=== PATIENT | male | born 1995 | race African-American/Black ===

== ENCOUNTER 2018-11-29 12:39 | Inpatient (IN) | payer BC, SELFPAY ==
[~2018-11-29] VITALS: Ht 193 cm; Wt 110.3 kg
[2018-11-29] MEDS ORDERED: MECLIZINE HCL 12.5 MG TABLET. PO ONE (13:00)
[2018-11-29] MEDS ORDERED: IV NORMAL SALINE 1000ML BAG 1,000 ML IV ONE ×2 (13:00→17:15)
[2018-11-29] MEDS ORDERED: ONDANSETRON PF 4 MG/2 ML VIAL. IV ONE (13:00)
--- NOTE | 2018-11-29 13:29 | RAD ---
EXAM: Chest, single view. HISTORY: Dizziness. COMPARISON: None. FINDINGS: A frontal view of the chest is obtained. There is no infiltrate, pleural effusion or pneumothorax. There is a prominent cardiac silhouette, likely due to portable technique. IMPRESSION: No acute pulmonary finding. Electronically signed by: Ayesha Flores MD (11/29/2018 1:26 PM) [facility]
[2018-11-29 13:43] LABS: BASO # 0.1 x10^3/uL (0.0-0.2); BASO % 1 % (0-3); EOS # 0.1 x10^3/uL (0.0-0.7); EOS % 1 % (0-3); HEMATOCRIT 45.7 % (39.0-53.0); HEMOGLOBIN 14.8 g/dL (13.0-17.5); LYMPH # 2.1 x10^3/uL (1.0-4.8); LYMPH % 24 % (24-48); MEAN CORPUSCULAR HEMOGLOBIN 29 pg (25-35); MEAN CORPUSCULAR HGB CONC 32 g/dL (31-37); MEAN CORPUSCULAR VOLUME 89 fL (79-100); MONO # 0.9 x10^3/uL (0.0-1.1); MONO % 10 % (0-9); NEUT # 5.7 x10^3uL (1.8-7.7); NEUT % 64 % (31-73); PLATELET COUNT 363 x10^3/uL (140-400); RED BLOOD COUNT 5.16 x10^6/uL (4.30-5.70); RED CELL DISTRIBUTION WIDTH 12.7 % (11.5-14.5); WHITE BLOOD COUNT 8.8 x10^3/uL (4.0-11.0)
[2018-11-29 13:51] LABS: CALCIUM 9.3 mg/dL (8.5-10.1); CREATININE 1.2 mg/dL (0.7-1.3); GFR 89.3; POTASSIUM 3.7 mmol/L (3.5-5.1)
[2018-11-29 13:58] LABS: ALBUMIN 3.5 g/dL (3.4-5.0); ALBUMIN/GLOBULIN RATIO 0.9 (1.0-1.7); MAGNESIUM 1.7 mg/dL (1.8-2.4); TOTAL BILIRUBIN 0.7 mg/dL (0.2-1.0); TOTAL PROTEIN 7.4 g/dL (6.4-8.2)
--- NOTE | 2018-11-29 14:07 | PHYS DOC ---
Past Medical History Past Medical History: No Pertinent History Past Surgical History: No Surgical History Additional Information: 1/2 PACK/DAY Alcohol Use: Occasionally Drug Use: None Adult General Chief Complaint Chief Complaint: DIZZY/LIGHT HEADED HPI HPI Patient is a 23 year old male who presents with dizziness since this morning. Patient states he he sleeps on the floor, he states he got up this morning, became dizzy, fell down, denies hitting his head on the ground. He states he got up again and has been dizzy since then. He is able to walk with no difficulties. Denies any significant previous medical history. Denies any chest pain or shortness of breath. Denies any headache. He states his dizziness has actually improved tremendously on arrival to the ED Review of Systems Review of Systems Constitutional: Denies fever or chills [] Eyes: Denies change in visual acuity, redness, or eye pain [] HENT: Denies nasal congestion or sore throat [] Respiratory: Denies cough or shortness of breath [] Cardiovascular: No additional information not addressed in HPI [] GI: Denies abdominal pain, nausea, vomiting, bloody stools or diarrhea [] : Denies dysuria or hematuria [] Musculoskeletal: Denies back pain or joint pain [] Integument: Denies rash or skin lesions [] Neurologic: Reports dizziness, denies. Denies headache, focal weakness or sensory changes [] All other systems were reviewed and found to be within normal limits, except as documented in this note. Current Medications Current Medications Current Medications Medications (Trade) Dose Ordered Sig/Carl Start Time Stop Time Status Last Admin Dose Admin Acetaminophen (Tylenol) 650 mg PRN Q4HRS PRN 11/29/18 16:15 11/30/18 16:14 Aspirin (Ana Aspirin) 325 mg 1X ONCE 11/29/18 14:15 11/29/18 14:16 DC 11/29/18 14:21 325 MG Info (CONTRAST GIVEN -- Rx MONITORING) 1 each PRN DAILY PRN 11/29/18 14:30 12/01/18 14:29 Iohexol (Omnipaque 350 Mg/ml) 100 ml 1X ONCE 11/29/18 14:30 11/29/18 14:31 DC Labetalol HCl (Normodyne Iv Push) 20 mg PRN Q2HR PRN 11/29/18 15:30 Magnesium Sulfate/ Dextrose 100 ml @ 100 mls/hr 1X ONCE 11/29/18 15:15 11/29/18 16:14 DC 11/29/18 15:31 100 MLS/HR Meclizine HCl (Antivert) 25 mg 1X ONCE 11/29/18 13:00 11/29/18 13:01 DC 11/29/18 13:39 25 MG Nitroglycerin (Nitrostat) 0.4 mg PRN Q5MIN PRN 11/29/18 16:15 11/30/18 16:14 Ondansetron HCl (Zofran) 4 mg PRN Q8HRS PRN 11/29/18 16:15 11/30/18 16:14 Sodium Chloride 1,000 ml @ 1,000 mls/hr 1X ONCE 11/29/18 13:00 11/29/18 13:59 DC 11/29/18 13:36 1,000 MLS/HR Allergies Allergies Allergies Coded Allergies Type Severity Reaction Last Updated Verified No Known Drug Allergies 11/29/18 No Physical Exam Physical Exam Constitutional: Well developed, well nourished, no acute distress, non-toxic appearance. [] HENT: Normocephalic, atraumatic, bilateral external ears normal, oropharynx moist, no oral exudates, nose normal. [] Eyes: PERRLA, EOMI, conjunctiva normal, no discharge. [] Neck: Normal range of motion, no tenderness, supple, no stridor. [] Cardiovascular:Heart rate regular rhythm, no murmur [] Lungs & Thorax: Bilateral breath sounds clear to auscultation [] Abdomen: Bowel sounds normal, soft, no tenderness, no masses, no pulsatile masses. [] Skin: Warm, dry, no erythema, no rash. [] Back: No tenderness, no CVA tenderness. [] Extremities: No tenderness, no cyanosis, no clubbing, ROM intact, no edema. [] Neurologic: Alert and oriented X 3, normal motor function, normal sensory f unction, no focal deficits noted. Cranial nerves II through XII intact. Psychologic: Affect normal, judgement normal, mood normal. [] Current Patient Data Vital Signs Vital Signs Date Time Temp Pulse Resp B/P (MAP) Pulse Ox O2 Delivery O2 Flow Rate FiO2 11/29/18 13:40 109 20 100 11/29/18 12:40 98.5 128/77 (94) Room Air 98.5 Lab Values Laboratory Tests Test 11/29/18 13:30 11/29/18 15:20 White Blood Count 8.8 x10^3/uL (4.0-11.0) Red Blood Count 5.16 x10^6/uL (4.30-5.70) Hemoglobin 14.8 g/dL (13.0-17.5) Hematocrit 45.7 % (39.0-53.0) Mean Corpuscular Volume 89 fL (79-100) Mean Corpuscular Hemoglobin 29 pg (25-35) Mean Corpuscular Hemoglobin Concent 32 g/dL (31-37) Red Cell Distribution Width 12.7 % (11.5-14.5) Platelet Count 363 x10^3/uL (140-400) Neutrophils (%) (Auto) 64 % (31-73) Lymphocytes (%) (Auto) 24 % (24-48) Monocytes (%) (Auto) 10 % (0-9) H Eosinophils (%) (Auto) 1 % (0-3) Basophils (%) (Auto) 1 % (0-3) Neutrophils # (Auto) 5.7 x10^3uL (1.8-7.7) Lymphocytes # (Auto) 2.1 x10^3/uL (1.0-4.8) Monocytes # (Auto) 0.9 x10^3/uL (0.0-1.1) Eosinophils # (Auto) 0.1 x10^3/uL (0.0-0.7) Basophils # (Auto) 0.1 x10^3/uL (0.0-0.2) Sodium Level 140 mmol/L (136-145) Potassium Level 3.7 mmol/L (3.5-5.1) Chloride Level 104 mmol/L (98-107) Carbon Dioxide Level 23 mmol/L (21-32) Anion Gap 13 (6-14) Blood Urea Nitrogen 11 mg/dL (8-26) Creatinine 1.2 mg/dL (0.7-1.3) Estimated GFR (Cockcroft-Gault) 89.3 BUN/Creatinine Ratio 9 (6-20) Glucose Level 116 mg/dL (70-99) H Calcium Level 9.3 mg/dL (8.5-10.1) Magnesium Level 1.7 mg/dL (1.8-2.4) L Total Bilirubin 0.7 mg/dL (0.2-1.0) Aspartate Amino Transferase (AST) 24 U/L (15-37) Alanine Aminotransferase (ALT) 36 U/L (16-63) Alkaline Phosphatase 92 U/L (46-116) Troponin I Quantitative 0.122 ng/mL (0.000-0.055) IV-Eve-M-Type Natriuretic Peptide 1839 pg/mL (0-124) H Total Protein 7.4 g/dL (6.4-8.2) Albumin 3.5 g/dL (3.4-5.0) Albumin/Globulin Ratio 0.9 (1.0-1.7) L Triglycerides Level 168 mg/dL (0-150) H Cholesterol Level 233 mg/dL (0-200) H LDL Cholesterol, Calculated 150 mg/dL (0-100) H VLDL Cholesterol, Calculated 34 mg/dL (0-40) Non-HDL Cholesterol Calculated 184 mg/dL (0-129) H HDL Cholesterol 49 mg/dL (40-60) Cholesterol/HDL Ratio 4.8 Thyroid Stimulating Hormone (TSH) 1.155 uIU/mL (0.358-3.74) Urine Collection Type Void Urine Color Yellow Urine Clarity Clear Urine pH 7.0 Urine Specific [place] 1.020 Urine Protein Negative mg/dL (NEG-TRACE) Urine Glucose (UA) Negative mg/dL (NEG) Urine Ketones (Stick) Negative mg/dL (NEG) Urine Blood Negative (NEG) Urine Nitrite Negative (NEG) Urine Bilirubin Negative (NEG) Urine Urobilinogen Dipstick 1.0 mg/dL (0.2 mg/dL) Urine Leukocyte Esterase Negative (NEG) Urine RBC 0 /HPF (0-2) Urine WBC 0 /HPF (0-4) Urine Bacteria 0 /HPF (0-FEW) Urine Opiates Screen Neg (NEG) Urine Methadone Screen Neg (NEG) Urine Barbiturates Neg (NEG) Urine Phencyclidine Screen Neg (NEG) Urine Amphetamine/Methamphetamine Neg (NEG) Urine Benzodiazepines Screen Neg (NEG) Urine Cocaine Screen Pos (NEG) Urine Cannabinoids Screen Pos (NEG) Urine Ethyl Alcohol Neg (NEG) Laboratory Tests 11/29/18 13:30 Laboratory Tests 11/29/18 13:30 EKG EKG Intepreted by Dr. Betancourt sinus tachycardia HR 102 no STEMI[] Radiology/Procedures Radiology/Procedures []PROCEDURE: CT ANGIOGRAPHY CHEST Examination: CT angiography chest History: tachycardia COMPARISON: None available TECHNIQUE: Axial CT angiographic images of chest were performed IV contrast. Coronal and sagittal 3-D MIP reformats are performed Exposure: One or more of the following individualized dose reduction techniques were utilized for this examination: 1. Automated exposure control 2. Adjustment of the mA and/or kV according to patient size 3. Use of iterative reconstruction technique FINDINGS: The central airways are patent. Mild cardiomegaly. There is no evidence of filling defect identified in the main pulmonary artery and right and left main pulmonary artery and the visualized lobar, segmental branches of the pulmonary arteries. There are patchy groundglass airspace opacities identified in the right middle lobe of the lung and bibasilar lungs, right greater than left, likely infiltrates or edema. No evidence of pleural effusion or pneumothorax. The visualized liver, spleen, adrenals grossly appears unremarkable. No evidence of lytic bony destructive lesion. IMPRESSION: 1. No evidence of pulmonary embolism. 2. Multiple groundglass patchy airspace opacities identified in the bibasilar lungs and in the right middle lobe of the lung likely atelectasis or infiltrates or edema. Close interval follow-up examination is recommended to document resolution. 3. Mild cardiomegaly. Electronically signed by: Ward Goldberg MD (11/29/2018 3:05 PM) [id number] DICTATED and SIGNED BY: WARD GOLDBERG MD DATE: 11/29/18 1505 PROCEDURE: PORTABLE CHEST 1V EXAM: Chest, single view. HISTORY: Dizziness. COMPARISON: None. FINDINGS: A frontal view of the chest is obtained. There is no infiltrate, pleural effusion or pneumothorax. There is a prominent cardiac silhouette, likely due to portable technique. IMPRESSION: No acute pulmonary finding. Electronically signed by: Ayesha Garcia MD (11/29/2018 1:26 PM) [id number] DICTATED and SIGNED BY: AYESHA GARCIA MD DATE: 11/29/18 1326 Course & Med Decision Making Course & Med Decision Making Pertinent Labs and Imaging studies reviewed. (See chart for details) This is a 23-year-old male patient presenting to the ED today with complaints of dizziness since this morning. No chest pain. No headache. Symptoms are actually better on arrival to the ED. EKG was noted for tachycardia. CBC with no acute findings, CMP with no acute findings. Troponin 0.122. Patient denies any chest pain or shortness of breath. Drug screen noted for cocaine use, marijuana use 1451 Consulted motion picture operator, spoke to hal who came and evaluated patient [address] Chamberlain who accepted patient for admission. CTA chest is negative for PE. Dragon Disclaimer Dragon Disclaimer This electronic medical record was generated, in whole or in part, using a voice recognition dictation system. Departure Departure Impression: Primary Impression: Dizziness Additional Impression: Non-ST elevation MS (NSTEMI) Disposition: ADMITTED INPATIENT Condition: STABLE Referrals: NO PCP (PCP) Problem Qualifiers SALOMÓN ALVARADO APRN November 29, 2018 14:07
[2018-11-29] MEDS ORDERED: ASPIRIN 325 MG TABLET PO ONE (14:15)
[2018-11-29] MEDS ORDERED: CONTRAST GIVEN. MC PRN (14:30)
[2018-11-29] MEDS ORDERED: IOHEXOL 350 MG/ML 100 ML VIAL. IV ONE (14:30)
--- NOTE | 2018-11-29 14:45 | EKG ---
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
--- NOTE | 2018-11-29 15:08 | RAD ---
Examination: CT angiography chest History: tachycardia COMPARISON: None available TECHNIQUE: Axial CT angiographic images of chest were performed IV contrast. Coronal and sagittal 3-D MIP reformats are performed Exposure: One or more of the following individualized dose reduction techniques were utilized for this examination: 1. Automated exposure control 2. Adjustment of the mA and/or kV according to patient size 3. Use of iterative reconstruction technique FINDINGS: The central airways are patent. Mild cardiomegaly. There is no evidence of filling defect identified in the main pulmonary artery and right and left main pulmonary artery and the visualized lobar, segmental branches of the pulmonary arteries. There are patchy groundglass airspace opacities identified in the right middle lobe of the lung and bibasilar lungs, right greater than left, likely infiltrates or edema. No evidence of pleural effusion or pneumothorax. The visualized liver, spleen, adrenals grossly appears unremarkable. No evidence of lytic bony destructive lesion. IMPRESSION: 1. No evidence of pulmonary embolism. 2. Multiple groundglass patchy airspace opacities identified in the bibasilar lungs and in the right middle lobe of the lung likely atelectasis or infiltrates or edema. Close interval follow-up examination is recommended to document resolution. 3. Mild cardiomegaly. Electronically signed by: Ward Goldberg MD (11/29/2018 3:05 PM) [id number]
[2018-11-29] MEDS ORDERED: MAGNESIUM SULFATE 1GM 100 ML IV ONE (15:15)
--- NOTE | 2018-11-29 15:16 | PDOC2 ---
CARDIAC CONSULT DATE OF CONSULT Date of Consult DATE: 11/29/18 TIME: 15:02 REASON FOR CONSULT Reason for Consult: Elevated troponin REFERRING PHYSICIAN Referring Physician: Mickey SOURCE Source: Chart review, Patient HISTORY OF PRESENT ILLNESS HISTORY OF PRESENT ILLNESS This is a pleasant 23 yo male admitted for complains of dizziness. Pt has not seen any doctor at least in the last 3 yrs. Verbalized that his mother was bord with congenital heart disease but unsure what type. 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 Reports that in the last week he thought he has some allergies and has been taking mucinex because he fells like phlegm wont come up and he has been having nonproductive cough with some wheezing. Denies any astham or any childhood heart disease and no leg pain or swelling and no past hx of VTE and he does not take any medications. Reports that this morning he got up to use the bathroom and felt dizzy with VILLAGOMEZ and also a little SOA and weak. Denies any chest pain or sensation of palpitations. No hx of arrhythmias. He does drking about 1 can of Monster a day but other caffeinated beverage. He smokes tobacco. No visual or auditory disturbances, no facial droop or dysarthria. PAST MEDICAL HISTORY Past Medical History No pertinent history PAST SURGICAL HISTORY Past Surgical History: No pertinent history FAMILY HISTORY Family History: Heart Disease (mother) SOCIAL HISTORY Smoke: <1 pack per day ALCOHOL: occassional Drugs: Marijuana Lives: with Family CURRENT MEDICATIONS CURRENT MEDICATIONS Current Medications Medications (Trade) Dose Ordered Sig/Carl Route PRN Reason Start Time Stop Time Status Last Admin Dose Admin Meclizine HCl (Antivert) 25 mg 1X ONCE PO 11/29/18 13:00 11/29/18 13:01 DC 11/29/18 13:39 Sodium Chloride 1,000 ml @ 1,000 mls/hr 1X ONCE IV 11/29/18 13:00 11/29/18 13:59 DC 11/29/18 13:36 Ondansetron HCl (Zofran) 4 mg 1X ONCE IV 11/29/18 13:00 11/29/18 13:01 DC 11/29/18 13:38 Aspirin (Ana Aspirin) 325 mg 1X ONCE PO 11/29/18 14:15 11/29/18 14:16 DC 11/29/18 14:21 ALLERGIES ALLERGIES: Coded Allergies: No Known Drug Allergies (Unverified , 11/29/18) ROS Review of System 14 point ROS evaluated with pertinent positives noted per HPI PHYSICAL EXAM General: Alert, Oriented X3, Cooperative, No acute distress HEENT: Atraumatic, Mucous membr. moist/pink Heart: Regular rate (SR/ST), Other (S3 diatolic murmur 3/6 loudest at erbs) Abdomen: Soft, No tenderness Extremities: No cyanosis, No edema Skin: No breakdown, No significant lesion Neuro: Normal speech, Sensation intact Psych/Mental Status: Mental status NL, Mood NL MUSCULOSKELETAL: Full range of motion without pain VITALS VITALS Vital Signs Date Time Temp Pulse Resp B/P (MAP) Pulse Ox O2 Delivery O2 Flow Rate FiO2 11/29/18 13:40 109 20 100 11/29/18 12:40 98.5 128/77 (94) Room Air 98.5 LABS Lab: Laboratory Tests Test 11/29/18 13:30 White Blood Count 8.8 x10^3/uL (4.0-11.0) Red Blood Count 5.16 x10^6/uL (4.30-5.70) Hemoglobin 14.8 g/dL (13.0-17.5) Hematocrit 45.7 % (39.0-53.0) Mean Corpuscular Volume 89 fL (79-100) Mean Corpuscular Hemoglobin 29 pg (25-35) Mean Corpuscular Hemoglobin Concent 32 g/dL (31-37) Red Cell Distribution Width 12.7 % (11.5-14.5) Platelet Count 363 x10^3/uL (140-400) Neutrophils (%) (Auto) 64 % (31-73) Lymphocytes (%) (Auto) 24 % (24-48) Monocytes (%) (Auto) 10 % (0-9) Eosinophils (%) (Auto) 1 % (0-3) Basophils (%) (Auto) 1 % (0-3) Neutrophils # (Auto) 5.7 x10^3uL (1.8-7.7) Lymphocytes # (Auto) 2.1 x10^3/uL (1.0-4.8) Monocytes # (Auto) 0.9 x10^3/uL (0.0-1.1) Eosinophils # (Auto) 0.1 x10^3/uL (0.0-0.7) Basophils # (Auto) 0.1 x10^3/uL (0.0-0.2) Sodium Level 140 mmol/L (136-145) Potassium Level 3.7 mmol/L (3.5-5.1) Chloride Level 104 mmol/L (98-107) Carbon Dioxide Level 23 mmol/L (21-32) Anion Gap 13 (6-14) Blood Urea Nitrogen 11 mg/dL (8-26) Creatinine 1.2 mg/dL (0.7-1.3) Estimated GFR (Cockcroft-Gault) 89.3 BUN/Creatinine Ratio 9 (6-20) Glucose Level 116 mg/dL (70-99) Calcium Level 9.3 mg/dL (8.5-10.1) Magnesium Level 1.7 mg/dL (1.8-2.4) Total Bilirubin 0.7 mg/dL (0.2-1.0) Aspartate Amino Transf (AST/SGOT) 24 U/L (15-37) Alanine Aminotransferase (ALT/SGPT) 36 U/L (16-63) Alkaline Phosphatase 92 U/L (46-116) Troponin I Quantitative 0.122 ng/mL (0.000-0.055) HW-Usd-L-Type Natriuretic Peptide 1839 pg/mL (0-124) Total Protein 7.4 g/dL (6.4-8.2) Albumin 3.5 g/dL (3.4-5.0) Albumin/Globulin Ratio 0.9 (1.0-1.7) Thyroid Stimulating Hormone (TSH) 1.155 uIU/mL (0.358-3.74) ASSESSMENT/PLAN ASSESSMENT/PLAN 1. Presyncope with dyspnea 2. Elevated troponin: inital trop 0.122. EKG SR with LAE and LVH 3. Possible new onset asthma with exacerbation 4. Reactive sinus tach 5. Tobaccoism 6. Marijuana use 7. HTN: likely chronic given his EKG finding but not known to pt 8. Family hx of congenital heart disease: mother with "enlarged heart" 9. Murmur Recommendations 1. CTA pending to rule out PE 2. TSH, lipids. trend troponin. TTE today 3. ASA. IV hydrate 4. Smokin5 and marijuana cessation 5. Trend BP, labetolol IV PRN. Further recommendation pending tests 6. Curb caffeine drinks DULCE ESPINOSA [employer] November 29, 2018 15:16
[2018-11-29 15:22] LABS: CHOLESTEROL/HDL RATIO 4.8
[2018-11-29 15:30] LABS: BILIRUBIN,URINE NEGATIVE (NEG); CLARITY,URINE CLEAR; COLOR,URINE YELLOW; NITRITE,URINE NEGATIVE (NEG); PROTEIN,URINE NEGATIVE (NEG-TRACE)
[2018-11-29] MEDS ORDERED: LABETALOL 20 MG/4 ML DISP.SYRIN. IVP PRN (15:30)
[2018-11-29 15:40] LABS: AMPHETAMINE/METHAMPHETAMINE NEG (NEG); BACTERIA,URINE 0 /HPF (0-FEW); BARBITURATES NEG (NEG); BENZODIAZEPINES NEG (NEG); CANNABINOIDS POS (NEG); COCAINE POS (NEG); METHADONE NEG (NEG); OPIATES NEG (NEG); PHENCYCLIDINE NEG (NEG); RBC,URINE 0 /HPF (0-2); WBC,URINE 0 /HPF (0-4)
--- NOTE | 2018-11-29 16:04 | PDOC1 ---
History and Physical Date of Admission Date of Admission DATE: 11/29/18 TIME: 16:03 Identification/Chief Complaint Chief Complaint seen in ER , 23 year old male who presents with dizziness since this morning. Patient states he he sleeps on the floor, he states he got up this morning, became dizzy, fell down, denies hitting his head on the ground. He states he got up again and has been dizzy since then. He is able to walk with no difficulties. Denies any significant previous medical history. Denies any chest pain or shortness of breath. Denies any headache. ELEVATED TROPONIN I FOUND IN ER Past Surgical History Past Surgical History: No pertinent history Family History Family History: Heart Disease (mother) Social History Smoke: <1 pack per day ALCOHOL: occassional Drugs: Marijuana Current Medications Current Medications Current Medications Meclizine HCl (Antivert) 25 mg 1X ONCE PO Last administered on 11/29/18at 13:39; Start 11/29/18 at 13:00; Stop 11/29/18 at 13:01; Status DC Sodium Chloride 1,000 ml @ 1,000 mls/hr 1X ONCE IV Last administered on 11/29/18at 13:36; Start 11/29/18 at 13:00; Stop 11/29/18 at 13:59; Status DC Ondansetron HCl (Zofran) 4 mg 1X ONCE IV Last administered on 11/29/18at 13:38; Start 11/29/18 at 13:00; Stop 11/29/18 at 13:01; Status DC Aspirin (Ana Aspirin) 325 mg 1X ONCE PO Last administered on 11/29/18at 14:21; Start 11/29/18 at 14:15; Stop 11/29/18 at 14:16; Status DC Iohexol (Omnipaque 350 Mg/ml) 100 ml 1X ONCE IV ; Start 11/29/18 at 14:30; Stop 11/29/18 at 14:31; Status DC Info (CONTRAST GIVEN -- Rx MONITORING) 1 each PRN DAILY PRN MC SEE COMMENTS; Start 11/29/18 at 14:30; Stop 12/01/18 at 14:29 Magnesium Sulfate/ Dextrose 100 ml @ 100 mls/hr 1X ONCE IV Last administered on 11/29/18at 15:31; Start 11/29/18 at 15:15; Stop 11/29/18 at 16:14 Labetalol HCl (Normodyne Iv Push) 20 mg PRN Q2HR PRN IVP ELEVATED BP, SEE C OMMENTS; Start 11/29/18 at 15:30 Allergies Allergies: Coded Allergies: No Known Drug Allergies (Unverified , 11/29/18) ROS Review of System Review of Systems Review of Systems Constitutional: Denies fever or chills [] Eyes: Denies change in visual acuity, redness, or eye pain [] HENT: Denies nasal congestion or sore throat [] Respiratory: Denies cough or shortness of breath [] Cardiovascular: No additional information not addressed in HPI [] GI: Denies abdominal pain, nausea, vomiting, bloody stools or diarrhea [] : Denies dysuria or hematuria [] Musculoskeletal: Denies back pain or joint pain [] Integument: Denies rash or skin lesions [] Neurologic: Reports dizziness, denies. Denies headache, focal weakness or sensory changes [] 14 PT systems were reviewed and found to be within normal limits, except as documented . Physical Exam Physical Exam Physical Exam Physical Exam Constitutional: Well developed, well nourished, no acute distress, non-toxic appearance. [] HENT: Normocephalic, atraumatic, bilateral external ears normal, oropharynx moist, no oral exudates, nose normal. [] Eyes: PERRLA, EOMI, conjunctiva normal, no discharge. [] Neck: Normal range of motion, no tenderness, supple, no stridor. [] Cardiovascular:Heart rate regular rhythm, no murmur [] Lungs & Thorax: Bilateral breath sounds clear to auscultation [] Abdomen: Bowel sounds normal, soft, no tenderness, no masses, no pulsatile masses. [] Skin: Warm, dry, no erythema, no rash. [] Back: No tenderness, no CVA tenderness. [] Extremities: No tenderness, no cyanosis, no clubbing, ROM intact, no edema. [] Neurologic: Alert and oriented X 3, normal motor function, normal sensory function, no focal deficits noted. Cranial nerves II through XII intact. Psychologic: Affect normal, judgement normal, mood normal. [] General: Alert, Oriented X3, Cooperative HEENT: Atraumatic, PERRLA Abdomen: Normal bowel sounds, Soft Neuro: Normal speech, Cranial nerves 3-12 NL Psych/Mental Status: Mental status NL, Mood NL Vitals Vitals Vital Signs Date Time Temp Pulse Resp B/P (MAP) Pulse Ox O2 Delivery O2 Flow Rate FiO2 11/29/18 13:40 109 20 100 11/29/18 12:40 98.5 128/77 (94) Room Air 98.5 Labs Labs Laboratory Tests Test 11/29/18 13:30 11/29/18 15:20 White Blood Count 8.8 x10^3/uL (4.0-11.0) Red Blood Count 5.16 x10^6/uL (4.30-5.70) Hemoglobin 14.8 g/dL (13.0-17.5) Hematocrit 45.7 % (39.0-53.0) Mean Corpuscular Volume 89 fL (79-100) Mean Corpuscular Hemoglobin 29 pg (25-35) Mean Corpuscular Hemoglobin Concent 32 g/dL (31-37) Red Cell Distribution Width 12.7 % (11.5-14.5) Platelet Count 363 x10^3/uL (140-400) Neutrophils (%) (Auto) 64 % (31-73) Lymphocytes (%) (Auto) 24 % (24-48) Monocytes (%) (Auto) 10 % (0-9) Eosinophils (%) (Auto) 1 % (0-3) Basophils (%) (Auto) 1 % (0-3) Neutrophils # (Auto) 5.7 x10^3uL (1.8-7.7) Lymphocytes # (Auto) 2.1 x10^3/uL (1.0-4.8) Monocytes # (Auto) 0.9 x10^3/uL (0.0-1.1) Eosinophils # (Auto) 0.1 x10^3/uL (0.0-0.7) Basophils # (Auto) 0.1 x10^3/uL (0.0-0.2) Sodium Level 140 mmol/L (136-145) Potassium Level 3.7 mmol/L (3.5-5.1) Chloride Level 104 mmol/L (98-107) Carbon Dioxide Level 23 mmol/L (21-32) Anion Gap 13 (6-14) Blood Urea Nitrogen 11 mg/dL (8-26) Creatinine 1.2 mg/dL (0.7-1.3) Estimated GFR (Cockcroft-Gault) 89.3 BUN/Creatinine Ratio 9 (6-20) Glucose Level 116 mg/dL (70-99) Calcium Level 9.3 mg/dL (8.5-10.1) Magnesium Level 1.7 mg/dL (1.8-2.4) Total Bilirubin 0.7 mg/dL (0.2-1.0) Aspartate Amino Transf (AST/SGOT) 24 U/L (15-37) Alanine Aminotransferase (ALT/SGPT) 36 U/L (16-63) Alkaline Phosphatase 92 U/L (46-116) Troponin I Quantitative 0.122 ng/mL (0.000-0.055) CE-Jrg-Q-Type Natriuretic Peptide 1839 pg/mL (0-124) Total Protein 7.4 g/dL (6.4-8.2) Albumin 3.5 g/dL (3.4-5.0) Albumin/Globulin Ratio 0.9 (1.0-1.7) Triglycerides Level 168 mg/dL (0-150) Cholesterol Level 233 mg/dL (0-200) LDL Cholesterol, Calculated 150 mg/dL (0-100) VLDL Cholesterol, Calculated 34 mg/dL (0-40) Non-HDL Cholesterol Calculated 184 mg/dL (0-129) HDL Cholesterol 49 mg/dL (40-60) Cholesterol/HDL Ratio 4.8 Thyroid Stimulating Hormone (TSH) 1.155 uIU/mL (0.358-3.74) Urine Collection Type Void Urine Color Yellow Urine Clarity Clear Urine pH 7.0 Urine Specific [place] 1.020 Urine Protein Negative mg/dL (NEG-TRACE) Urine Glucose (UA) Negative mg/dL (NEG) Urine Ketones (Stick) Negative mg/dL (NEG) Urine Blood Negative (NEG) Urine Nitrite Negative (NEG) Urine Bilirubin Negative (NEG) Urine Urobilinogen Dipstick 1.0 mg/dL (0.2 mg/dL) Urine Leukocyte Esterase Negative (NEG) Urine RBC 0 /HPF (0-2) Urine WBC 0 /HPF (0-4) Urine Bacteria 0 /HPF (0-FEW) Urine Opiates Screen Neg (NEG) Urine Methadone Screen Neg (NEG) Urine Barbiturates Neg (NEG) Urine Phencyclidine Screen Neg (NEG) Urine Amphetamine/Methamphetamine Neg (NEG) Urine Benzodiazepines Screen Neg (NEG) Urine Cocaine Screen Pos (NEG) Urine Cannabinoids Screen Pos (NEG) Urine Ethyl Alcohol Neg (NEG) Laboratory Tests Test 11/29/18 13:30 11/29/18 15:20 White Blood Count 8.8 x10^3/uL (4.0-11.0) Red Blood Count 5.16 x10^6/uL (4.30-5.70) Hemoglobin 14.8 g/dL (13.0-17.5) Hematocrit 45.7 % (39.0-53.0) Mean Corpuscular Volume 89 fL (79-100) Mean Corpuscular Hemoglobin 29 pg (25-35) Mean Corpuscular Hemoglobin Concent 32 g/dL (31-37) Red Cell Distribution Width 12.7 % (11.5-14.5) Platelet Count 363 x10^3/uL (140-400) Neutrophils (%) (Auto) 64 % (31-73) Lymphocytes (%) (Auto) 24 % (24-48) Monocytes (%) (Auto) 10 % (0-9) Eosinophils (%) (Auto) 1 % (0-3) Basophils (%) (Auto) 1 % (0-3) Neutrophils # (Auto) 5.7 x10^3uL (1.8-7.7) Lymphocytes # (Auto) 2.1 x10^3/uL (1.0-4.8) Monocytes # (Auto) 0.9 x10^3/uL (0.0-1.1) Eosinophils # (Auto) 0.1 x10^3/uL (0.0-0.7) Basophils # (Auto) 0.1 x10^3/uL (0.0-0.2) Sodium Level 140 mmol/L (136-145) Potassium Level 3.7 mmol/L (3.5-5.1) Chloride Level 104 mmol/L (98-107) Carbon Dioxide Level 23 mmol/L (21-32) Anion Gap 13 (6-14) Blood Urea Nitrogen 11 mg/dL (8-26) Creatinine 1.2 mg/dL (0.7-1.3) Estimated GFR (Cockcroft-Gault) 89.3 BUN/Creatinine Ratio 9 (6-20) Glucose Level 116 mg/dL (70-99) Calcium Level 9.3 mg/dL (8.5-10.1) Magnesium Level 1.7 mg/dL (1.8-2.4) Total Bilirubin 0.7 mg/dL (0.2-1.0) Aspartate Amino Transf (AST/SGOT) 24 U/L (15-37) Alanine Aminotransferase (ALT/SGPT) 36 U/L (16-63) Alkaline Phosphatase 92 U/L (46-116) Troponin I Quantitative 0.122 ng/mL (0.000-0.055) SN-Chh-G-Type Natriuretic Peptide 1839 pg/mL (0-124) Total Protein 7.4 g/dL (6.4-8.2) Albumin 3.5 g/dL (3.4-5.0) Albumin/Globulin Ratio 0.9 (1.0-1.7) Triglycerides Level 168 mg/dL (0-150) Cholesterol Level 233 mg/dL (0-200) LDL Cholesterol, Calculated 150 mg/dL (0-100) VLDL Cholesterol, Calculated 34 mg/dL (0-40) Non-HDL Cholesterol Calculated 184 mg/dL (0-129) HDL Cholesterol 49 mg/dL (40-60) Cholesterol/HDL Ratio 4.8 Thyroid Stimulating Hormone (TSH) 1.155 uIU/mL (0.358-3.74) Urine Collection Type Void Urine Color Yellow Urine Clarity Clear Urine pH 7.0 Urine Specific [place] 1.020 Urine Protein Negative mg/dL (NEG-TRACE) Urine Glucose (UA) Negative mg/dL (NEG) Urine Ketones (Stick) Negative mg/dL (NEG) Urine Blood Negative (NEG) Urine Nitrite Negative (NEG) Urine Bilirubin Negative (NEG) Urine Urobilinogen Dipstick 1.0 mg/dL (0.2 mg/dL) Urine Leukocyte Esterase Negative (NEG) Urine RBC 0 /HPF (0-2) Urine WBC 0 /HPF (0-4) Urine Bacteria 0 /HPF (0-FEW) Urine Opiates Screen Neg (NEG) Urine Methadone Screen Neg (NEG) Urine Barbiturates Neg (NEG) Urine Phencyclidine Screen Neg (NEG) Urine Amphetamine/Methamphetamine Neg (NEG) Urine Benzodiazepines Screen Neg (NEG) Urine Cocaine Screen Pos (NEG) Urine Cannabinoids Screen Pos (NEG) Urine Ethyl Alcohol Neg (NEG) Images Images EXAM: Chest, single view. HISTORY: Dizziness. COMPARISON: None. FINDINGS: A frontal view of the chest is obtained. There is no infiltrate, pleural effusion or pneumothorax. There is a prominent cardiac silhouette, likely due to portable technique. IMPRESSION: No acute pulmonary finding. Electronically signed by: Simon Flores MD (11/29/2018 1:26 PM) [facility] DICTATED and SIGNED BY: SIMON FLORES MD DATE: 11/29/18 1328 Examination: CT angiography chest History: tachycardia COMPARISON: None available TECHNIQUE: Axial CT angiographic images of chest were performed IV contrast. Coronal and sagittal 3-D MIP reformats are performed Exposure: One or more of the following individualized dose reduction techniques were utilized for this examination: 1. Automated exposure control 2. Adjustment of the mA and/or kV according to patient size 3. Use of iterative reconstruction technique FINDINGS: The central airways are patent. Mild cardiomegaly. There is no evidence of filling defect identified in the main pulmonary artery and right and left main pulmonary artery and the visualized lobar, segmental branches of the pulmonary arteries. There are patchy groundglass airspace opacities identified in the right middle lobe of the lung and bibasilar lungs, right greater than left, likely infiltrates or edema. No evidence of pleural effusion or pneumothorax. The visualized liver, spleen, adrenals grossly appears unremarkable. No evidence of lytic bony destructive lesion. IMPRESSION: 1. No evidence of pulmonary embolism. 2. Multiple groundglass patchy airspace opacities identified in the bibasilar lungs and in the right middle lobe of the lung likely atelectasis or infiltrates or edema. Close interval follow-up examination is recommended to document resolution. 3. Mild cardiomegaly. VTE Prophylaxis Ordered VTE Prophylaxis Devices: Yes VTE Pharmacological Prophylaxi: Yes Assessment/Plan Assessment/Plan IMPRESSION: 1. No evidence of pulmonary embolism. 2. Multiple ground-glass patchy airspace opacities identified in the bibasilar lungs and in the right middle lobe of the lung likely atelectasis or infiltrates or edema. 3. Mild cardiomegaly. 4. presyncope with dyspnea 5. elevated troponin i LIKELY SEC COCAINE USE 6. obesity 7. dizziness 8. THC ABUSE 9. COCAINE ABUSE plan admit serial troponin i cardiology consult ECHO NEUROLOGY CONSULT NEUROCHECKS Q 4 HRS ORTHOSTATIC BP IV FLUID SUPPORT AVOID COCAINE DVT PROPHYLAXIS 78 MIN PT EXAM, CHART REVIEW, > 50% OF TIME SPENT WITH EXAM, CHART REVIEW, PT CARE COORDINATION ALDEN PATEL MD November 29, 2018 16:04
[2018-11-29] MEDS ORDERED: ACETAMINOPHEN 325 MG TABLET. PO PRN (16:15)
[2018-11-29] MEDS ORDERED: NITROGLYCERIN SUBLINGUAL 0.4 MG BOTTLE OF 25. SL PRN (16:15)
[2018-11-29] MEDS ORDERED: ONDANSETRON PF 4 MG/2 ML VIAL. IV PRN (16:15)
[2018-11-29 17:45] VITALS: BP 144/99
[2018-11-29 19:50] VITALS: BP 138/89
[2018-11-29] MEDS: ATORVASTATIN CALCIUM 20 MG TABLET PO SCH (21:09)
[2018-11-29 23:04] VITALS: BP 127/87
[2018-11-30 03:29] VITALS: BP 139/90
[2018-11-30 04:22] LABS: BASO # 0.1 x10^3/uL (0.0-0.2); BASO % 1 % (0-3); EOS # 0.1 x10^3/uL (0.0-0.7); EOS % 1 % (0-3); HEMOGLOBIN 13.2 g/dL (13.0-17.5); LYMPH # 4.4 x10^3/uL (1.0-4.8); LYMPH % 37 % (24-48); MEAN CORPUSCULAR HEMOGLOBIN 29 pg (25-35); MEAN CORPUSCULAR HGB CONC 32 g/dL (31-37); MEAN CORPUSCULAR VOLUME 89 fL (79-100); MONO % 9 % (0-9); NEUT # 6.2 x10^3uL (1.8-7.7); NEUT % 52 % (31-73); PLATELET COUNT 342 x10^3/uL (140-400); RED BLOOD COUNT 4.61 x10^6/uL (4.30-5.70); WHITE BLOOD COUNT 11.8 x10^3/uL (4.0-11.0)
[2018-11-30 04:41] LABS: CALCIUM 8.6 mg/dL (8.5-10.1); CREATININE 1.3 mg/dL (0.7-1.3); GFR 81.4; POTASSIUM 3.8 mmol/L (3.5-5.1)
[2018-11-30 04:42] LABS: CHOLESTEROL/HDL RATIO 4.5
[2018-11-30 07:00] VITALS: BP 115/68
[2018-11-30] MEDS ORDERED: FUROSEMIDE 20 MG/2 ML VIAL. IVP ONE (10:00)
--- NOTE | 2018-11-30 10:04 | PDOC ---
CARDIO Progress Notes Date and Time Date of Service 11/30/2018 Time of Evaluation 0930 Subjective Subjective: No Chest Pain, No shortness of breath, No Palpitations Vitals Vitals Vital Signs Date Time Temp Pulse Resp B/P (MAP) Pulse Ox O2 Delivery O2 Flow Rate FiO2 11/30/18 07:00 98.2 107 18 115/68 (84) 92 Room Air 98.2 Weight Weight [ ] Input and Output Intake and Output Intake and Output 11/30/18 06:59 Intake Total 3190 ml Balance 3190 ml Intake Oral 1090 ml IV Total 2100 ml # Voids 2 Laboratory Labs Laboratory Tests Test 11/29/18 13:30 11/29/18 15:20 11/29/18 16:50 11/29/18 22:15 White Blood Count 8.8 x10^3/uL (4.0-11.0) Red Blood Count 5.16 x10^6/uL (4.30-5.70) Hemoglobin 14.8 g/dL (13.0-17.5) Hematocrit 45.7 % (39.0-53.0) Mean Corpuscular Volume 89 fL (79-100) Mean Corpuscular Hemoglobin 29 pg (25-35) Mean Corpuscular Hemoglobin Concent 32 g/dL (31-37) Red Cell Distribution Width 12.7 % (11.5-14.5) Platelet Count 363 x10^3/uL (140-400) Neutrophils (%) (Auto) 64 % (31-73) Lymphocytes (%) (Auto) 24 % (24-48) Monocytes (%) (Auto) 10 % (0-9) Eosinophils (%) (Auto) 1 % (0-3) Basophils (%) (Auto) 1 % (0-3) Neutrophils # (Auto) 5.7 x10^3uL (1.8-7.7) Lymphocytes # (Auto) 2.1 x10^3/uL (1.0-4.8) Monocytes # (Auto) 0.9 x10^3/uL (0.0-1.1) Eosinophils # (Auto) 0.1 x10^3/uL (0.0-0.7) Basophils # (Auto) 0.1 x10^3/uL (0.0-0.2) Sodium Level 140 mmol/L (136-145) Potassium Level 3.7 mmol/L (3.5-5.1) Chloride Level 104 mmol/L (98-107) Carbon Dioxide Level 23 mmol/L (21-32) Anion Gap 13 (6-14) Blood Urea Nitrogen 11 mg/dL (8-26) Creatinine 1.2 mg/dL (0.7-1.3) Estimated GFR (Cockcroft-Gault) 89.3 BUN/Creatinine Ratio 9 (6-20) Glucose Level 116 mg/dL (70-99) Calcium Level 9.3 mg/dL (8.5-10.1) Magnesium Level 1.7 mg/dL (1.8-2.4) Total Bilirubin 0.7 mg/dL (0.2-1.0) Aspartate Amino Transf (AST/SGOT) 24 U/L (15-37) Alanine Aminotransferase (ALT/SGPT) 36 U/L (16-63) Alkaline Phosphatase 92 U/L (46-116) Troponin I Quantitative 0.122 ng/mL (0.000-0.055) 0.144 ng/mL (0.000-0.055) 0.139 ng/mL (0.000-0.055) YC-Rcr-H-Type Natriuretic Peptide 1839 pg/mL (0-124) Total Protein 7.4 g/dL (6.4-8.2) Albumin 3.5 g/dL (3.4-5.0) Albumin/Globulin Ratio 0.9 (1.0-1.7) Triglycerides Level 168 mg/dL (0-150) Cholesterol Level 233 mg/dL (0-200) LDL Cholesterol, Calculated 150 mg/dL (0-100) VLDL Cholesterol, Calculated 34 mg/dL (0-40) Non-HDL Cholesterol Calculated 184 mg/dL (0-129) HDL Cholesterol 49 mg/dL (40-60) Cholesterol/HDL Ratio 4.8 Thyroid Stimulating Hormone (TSH) 1.155 uIU/mL (0.358-3.74) Urine Collection Type Void Urine Color Yellow Urine Clarity Clear Urine pH 7.0 Urine Specific [place] 1.020 Urine Protein Negative mg/dL (NEG-TRACE) Urine Glucose (UA) Negative mg/dL (NEG) Urine Ketones (Stick) Negative mg/dL (NEG) Urine Blood Negative (NEG) Urine Nitrite Negative (NEG) Urine Bilirubin Negative (NEG) Urine Urobilinogen Dipstick 1.0 mg/dL (0.2 mg/dL) Urine Leukocyte Esterase Negative (NEG) Urine RBC 0 /HPF (0-2) Urine WBC 0 /HPF (0-4) Urine Bacteria 0 /HPF (0-FEW) Urine Opiates Screen Neg (NEG) Urine Methadone Screen Neg (NEG) Urine Barbiturates Neg (NEG) Urine Phencyclidine Screen Neg (NEG) Urine Amphetamine/Methamphetamine Neg (NEG) Urine Benzodiazepines Screen Neg (NEG) Urine Cocaine Screen Pos (NEG) Urine Cannabinoids Screen Pos (NEG) Urine Ethyl Alcohol Neg (NEG) Test 11/30/18 03:30 White Blood Count 11.8 x10^3/uL (4.0-11.0) Red Blood Count 4.61 x10^6/uL (4.30-5.70) Hemoglobin 13.2 g/dL (13.0-17.5) Hematocrit 41.0 % (39.0-53.0) Mean Corpuscular Volume 89 fL (79-100) Mean Corpuscular Hemoglobin 29 pg (25-35) Mean Corpuscular Hemoglobin Concent 32 g/dL (31-37) Red Cell Distribution Width 13.0 % (11.5-14.5) Platelet Count 342 x10^3/uL (140-400) Neutrophils (%) (Auto) 52 % (31-73) Lymphocytes (%) (Auto) 37 % (24-48) Monocytes (%) (Auto) 9 % (0-9) Eosinophils (%) (Auto) 1 % (0-3) Basophils (%) (Auto) 1 % (0-3) Neutrophils # (Auto) 6.2 x10^3uL (1.8-7.7) Lymphocytes # (Auto) 4.4 x10^3/uL (1.0-4.8) Monocytes # (Auto) 1.0 x10^3/uL (0.0-1.1) Eosinophils # (Auto) 0.1 x10^3/uL (0.0-0.7) Basophils # (Auto) 0.1 x10^3/uL (0.0-0.2) Sodium Level 141 mmol/L (136-145) Potassium Level 3.8 mmol/L (3.5-5.1) Chloride Level 106 mmol/L (98-107) Carbon Dioxide Level 24 mmol/L (21-32) Anion Gap 11 (6-14) Blood Urea Nitrogen 8 mg/dL (8-26) Creatinine 1.3 mg/dL (0.7-1.3) Estimated GFR (Cockcroft-Gault) 81.4 Glucose Level 105 mg/dL (70-99) Calcium Level 8.6 mg/dL (8.5-10.1) Triglycerides Level 136 mg/dL (0-150) Cholesterol Level 177 mg/dL (0-200) LDL Cholesterol, Calculated 111 mg/dL (0-100) VLDL Cholesterol, Calculated 27 mg/dL (0-40) Non-HDL Cholesterol Calculated 138 mg/dL (0-129) HDL Cholesterol 39 mg/dL (40-60) Cholesterol/HDL Ratio 4.5 Physical Exam HEENT: Neck Supple W Full Motion Chest: Symmetric LUNGS: Clear to Auscultation Heart: S1S2, RRR (SR) Abdomen: Soft N/T Extremities: No Calf Tenderness Neurology: alert, oriented, follow commands Assessment Assessment 1. NSTEMI: potentially substance abuse induced with element of vasopasm 2. Cardiomyopathy: Possibly toxic in etiology with stressors below. Preliminary at 25% 3. Admitted Binge alcoholism: 12 pk in one sitting last weekend 4. Cocaine abuse: 2x weekly, last use weekend. 5. Marijuana use 6. Tobaccoism 7. Murmur 8. Acute likely on chronic systolic/diastolic CHF 9. Family hx of congenital heart disease: mother with "enlarged heart" 10. HTN 11. Presyncope: multifactorial as above. 12. Reactive sinus tach: 110s, no significant ectopies Recommendations 1. [facility] tomorrow for further delineation and also note any congenital issues. Risks and benefits discussed agreeable to proceed 2. ASA. Lovenox. statin. Start on low dose coreg, will monitor BP trend 3. Pending [facility] result entresto is a consideration to start tomorrow. 4. Discussed lifestyle modification including substance abuse and smoking cessation. 5. Lasix today and DULCE KULKARNI APRN November 30, 2018 10:04
--- NOTE | 2018-11-30 10:16 | CARD ---
MR#: [id number] Date of Study: 11/30/2018 Ordering Physician: DULCE ESPINOSA, Referring Physician: ALDEN PATEL, Tech: Chrystal Buchanan APPROVED REPORT EXAM: Two-dimensional and M-mode echocardiogram with Doppler and color Doppler. Other Information Quality : GoodHR: 107bpm INDICATION Dizziness and Vertigo Non STEMI RISK FACTORS Hyperlipidemia Smoking 2D DIMENSIONS RVDd3.4 (2.9-3.5cm)Left Atrium(2D)4.8 (1.6-4.0cm) IVSd1.2 (0.7-1.1cm)Aortic Root(2D)3.2 (2.0-3.7cm) LVDd7.4 (3.9-5.9cm)LVOT Diameter2.3 (1.8-2.4cm) PWd1.3 (0.7-1.1cm)LVDs7.3 (2.5-4.0cm) FS (%) 1.6 %SV10.2 ml LVEF(%)3.6 (>50%) Aortic Valve AoV Peak Hari.113.3cm/sAoV VTI15.4cm AO Peak GR.5.1mmHgLVOT Peak Hari.67.8cm/s LVOT VTI 9.44cmAO Mean GR.3mmHg DAVE (VMAX)1.19iy1LNO (VTI)2.54cm2 Mitral Valve MV E Rntpjurp817.7cm/sMV E Peak Gr.92mmHg MV DECEL [id number] A Mknbtjxa69.4cm/s MV E Mean Gr.3mmHgMV [id number] E/A Ratio1.1MVA (PHT)5.58cm2 TDI E/Lateral E'13.0E/Medial E'15.8 Pulmonary Valve PV Peak Mpxgocid42.3cm/sPV Peak Grad.4mmHg Tricuspid Valve TR P. [id number]/sRAP [id number] TR Peak Gr.43ozNqHWWQ21lrXk Pulmonary Vein S1 Alxhordj97.2cm/sD2 Xfevgnno48.1cm/s LEFT VENTRICLE RIGHT VENTRICLE The right ventricle is normal size. There is normal right ventricular wall thickness. The right ventr icular systolic function is normal. ATRIA The left atrium is borderline dilated. The right atrium size is normal. The interatrial septum is int act with no evidence for an atrial septal defect or patent foramen ovale as noted on 2-D or Doppler i maging. AORTIC VALVE The aortic valve is normal in structure and function. Doppler and Color Flow revealed trace aortic re gurgitation. There is no significant aortic valvular stenosis. MITRAL VALVE The mitral valve is thickened but opens well. There is no evidence of mitral valve prolapse. There is no mitral valve stenosis. Doppler and Color-flow revealed moderate to severe mitral regurgitation. TRICUSPID VALVE The tricuspid valve is normal in structure and function. Doppler and Color Flow revealed trace tricus pid regurgitation with an estimated PAP of 39 mmHg. There is mild pulmonary hypertension. There is no tricuspid valve stenosis. PULMONIC VALVE The pulmonary valve is normal in structure and function. Doppler and Color Flow revealed trace pulmon ic valvular regurgitation. GREAT VESSELS The aortic root is normal in size. The IVC is dilated and collapses >50% with inspiration. PERICARDIAL EFFUSION There is no evidence of significant pericardial effusion. Critical Notification Critical Value: Yes <Conclusion> The left ventricular systolic function is severely impaired. The Ejection Fraction is 20-25%. Moderate to severe mitral regurgitation. Trace tricuspid regurgitation with an estimated PAP of 39 mmHg. There is no evidence of significant pericardial effusion. Signed by : Inder Coleman, Electronically Approved : 11/30/2018 10:15:56
[2018-11-30] MEDS: ASPIRIN ENTERIC COATED 81 MG TABLET.DR. PO SCH (11:31)
[2018-11-30] MEDS: CARVEDILOL 3.125 MG TABLET. PO SCH ×2 (11:31→17:08)
[2018-11-30 11:37] VITALS: BP 121/87
--- NOTE | 2018-11-30 12:36 | NUR ---
SS following for discharge planning. SS reviewed pt chart. Pt is self pay pt. [facility]CF[facility] following for self pay status. Pt is from home and is currently on room air. No discharge needs noted at this time. SS will continue to follow for discharge planning.
--- NOTE | 2018-11-30 12:57 | NUR ---
Provided education to patient and mother regarding CHF, new medications and heart catherterization. Patient expressed being a little anxious but understands the need for the procedure. Will continue to monitor
--- NOTE | 2018-11-30 13:11 | PDOC ---
[facility] PROGRESS NOTE Chief Complaint Chief Complaint Chest pain Cocaine positive Elevated troponin Cardiomyopathy noted on echo History of Present Illness History of Present Illness Patient seen and examined this morning. mother at bedside This morning the patient was doing well and wanted to go home Echocardiogram still pending this morning. Troponins were slightly elevated at 0.14 I discussed the case with the the mother and the patient Explained that this was probably all cocaine induced He agrees to not be doing any more cocaine Addendum Since I examined the patient this morning the echo report is now in an showing a low ejection fraction Cardiac note from the nurse practitioner reviewed Patient is now going for cardiac catheter tomorrow morning Vitals Vitals Vital Signs Date Time Temp Pulse Resp B/P (MAP) Pulse Ox O2 Delivery O2 Flow Rate FiO2 11/30/18 11:37 98.4 115 18 121/87 (98) 91 Room Air 98.4 Physical Exam General: Alert, Oriented X3, Cooperative Heart: Regular rate (SR/ST), Other (S3 diatolic murmur 3/6 loudest at erbs) Lungs: Clear Abdomen: Normal bowel sounds, Soft Extremities: No cyanosis, No edema Skin: No breakdown, No significant lesion Labs Labs: Laboratory Tests Test 11/29/18 13:30 11/29/18 15:20 11/29/18 16:50 11/29/18 22:15 White Blood Count 8.8 x10^3/uL (4.0-11.0) Red Blood Count 5.16 x10^6/uL (4.30-5.70) Hemoglobin 14.8 g/dL (13.0-17.5) Hematocrit 45.7 % (39.0-53.0) Mean Corpuscular Volume 89 fL (79-100) Mean Corpuscular Hemoglobin 29 pg (25-35) Mean Corpuscular Hemoglobin Concent 32 g/dL (31-37) Red Cell Distribution Width 12.7 % (11.5-14.5) Platelet Count 363 x10^3/uL (140-400) Neutrophils (%) (Auto) 64 % (31-73) Lymphocytes (%) (Auto) 24 % (24-48) Monocytes (%) (Auto) 10 % (0-9) Eosinophils (%) (Auto) 1 % (0-3) Basophils (%) (Auto) 1 % (0-3) Neutrophils # (Auto) 5.7 x10^3uL (1.8-7.7) Lymphocytes # (Auto) 2.1 x10^3/uL (1.0-4.8) Monocytes # (Auto) 0.9 x10^3/uL (0.0-1.1) Eosinophils # (Auto) 0.1 x10^3/uL (0.0-0.7) Basophils # (Auto) 0.1 x10^3/uL (0.0-0.2) Sodium Level 140 mmol/L (136-145) Potassium Level 3.7 mmol/L (3.5-5.1) Chloride Level 104 mmol/L (98-107) Carbon Dioxide Level 23 mmol/L (21-32) Anion Gap 13 (6-14) Blood Urea Nitrogen 11 mg/dL (8-26) Creatinine 1.2 mg/dL (0.7-1.3) Estimated GFR (Cockcroft-Gault) 89.3 BUN/Creatinine Ratio 9 (6-20) Glucose Level 116 mg/dL (70-99) Calcium Level 9.3 mg/dL (8.5-10.1) Magnesium Level 1.7 mg/dL (1.8-2.4) Total Bilirubin 0.7 mg/dL (0.2-1.0) Aspartate Amino Transf (AST/SGOT) 24 U/L (15-37) Alanine Aminotransferase (ALT/SGPT) 36 U/L (16-63) Alkaline Phosphatase 92 U/L (46-116) Troponin I Quantitative 0.122 ng/mL (0.000-0.055) 0.144 ng/mL (0.000-0.055) 0.139 ng/mL (0.000-0.055) FD-Jtl-X-Type Natriuretic Peptide 1839 pg/mL (0-124) Total Protein 7.4 g/dL (6.4-8.2) Albumin 3.5 g/dL (3.4-5.0) Albumin/Globulin Ratio 0.9 (1.0-1.7) Triglycerides Level 168 mg/dL (0-150) Cholesterol Level 233 mg/dL (0-200) LDL Cholesterol, Calculated 150 mg/dL (0-100) VLDL Cholesterol, Calculated 34 mg/dL (0-40) Non-HDL Cholesterol Calculated 184 mg/dL (0-129) HDL Cholesterol 49 mg/dL (40-60) Cholesterol/HDL Ratio 4.8 Thyroid Stimulating Hormone (TSH) 1.155 uIU/mL (0.358-3.74) Urine Collection Type Void Urine Color Yellow Urine Clarity Clear Urine pH 7.0 Urine Specific Milo 1.020 Urine Protein Negative mg/dL (NEG-TRACE) Urine Glucose (UA) Negative mg/dL (NEG) Urine Ketones (Stick) Negative mg/dL (NEG) Urine Blood Negative (NEG) Urine Nitrite Negative (NEG) Urine Bilirubin Negative (NEG) Urine Urobilinogen Dipstick 1.0 mg/dL (0.2 mg/dL) Urine Leukocyte Esterase Negative (NEG) Urine RBC 0 /HPF (0-2) Urine WBC 0 /HPF (0-4) Urine Bacteria 0 /HPF (0-FEW) Urine Opiates Screen Neg (NEG) Urine Methadone Screen Neg (NEG) Urine Barbiturates Neg (NEG) Urine Phencyclidine Screen Neg (NEG) Urine Amphetamine/Methamphetamine Neg (NEG) Urine Benzodiazepines Screen Neg (NEG) Urine Cocaine Screen Pos (NEG) Urine Cannabinoids Screen Pos (NEG) Urine Ethyl Alcohol Neg (NEG) Test 11/30/18 03:30 White Blood Count 11.8 x10^3/uL (4.0-11.0) Red Blood Count 4.61 x10^6/uL (4.30-5.70) Hemoglobin 13.2 g/dL (13.0-17.5) Hematocrit 41.0 % (39.0-53.0) Mean Corpuscular Volume 89 fL (79-100) Mean Corpuscular Hemoglobin 29 pg (25-35) Mean Corpuscular Hemoglobin Concent 32 g/dL (31-37) Red Cell Distribution Width 13.0 % (11.5-14.5) Platelet Count 342 x10^3/uL (140-400) Neutrophils (%) (Auto) 52 % (31-73) Lymphocytes (%) (Auto) 37 % (24-48) Monocytes (%) (Auto) 9 % (0-9) Eosinophils (%) (Auto) 1 % (0-3) Basophils (%) (Auto) 1 % (0-3) Neutrophils # (Auto) 6.2 x10^3uL (1.8-7.7) Lymphocytes # (Auto) 4.4 x10^3/uL (1.0-4.8) Monocytes # (Auto) 1.0 x10^3/uL (0.0-1.1) Eosinophils # (Auto) 0.1 x10^3/uL (0.0-0.7) Basophils # (Auto) 0.1 x10^3/uL (0.0-0.2) Sodium Level 141 mmol/L (136-145) Potassium Level 3.8 mmol/L (3.5-5.1) Chloride Level 106 mmol/L (98-107) Carbon Dioxide Level 24 mmol/L (21-32) Anion Gap 11 (6-14) Blood Urea Nitrogen 8 mg/dL (8-26) Creatinine 1.3 mg/dL (0.7-1.3) Estimated GFR (Cockcroft-Gault) 81.4 Glucose Level 105 mg/dL (70-99) Calcium Level 8.6 mg/dL (8.5-10.1) Triglycerides Level 136 mg/dL (0-150) Cholesterol Level 177 mg/dL (0-200) LDL Cholesterol, Calculated 111 mg/dL (0-100) VLDL Cholesterol, Calculated 27 mg/dL (0-40) Non-HDL Cholesterol Calculated 138 mg/dL (0-129) HDL Cholesterol 39 mg/dL (40-60) Cholesterol/HDL Ratio 4.5 Review of Systems Review of Systems No complaints Denies chest pain Denies shortness of breath Assessment and Plan Assessmemt and Plan Problems Medical Problems: (1) Dizziness Status: Acute (2) Non-ST elevation OR (NSTEMI) Status: Acute Chest pain Elevated troponin Cocaine abuse Dilated cardiopathy 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 For now we'll continue monitoring on telemetry I had a long talk with the patient about discontinuing the use of cocaine and he agrees DVT prophylaxis Serial enzymes Serial EKGs Home meds Aspirin Other cardiac meds per cardiology Total time 31 minutes Comment Review of Relevant I have reviewed the following items reshma (where applicable) has been applied. Labs Laboratory Tests Test 11/29/18 13:30 11/29/18 15:20 11/29/18 16:50 11/29/18 22:15 White Blood Count 8.8 x10^3/uL (4.0-11.0) Red Blood Count 5.16 x10^6/uL (4.30-5.70) Hemoglobin 14.8 g/dL (13.0-17.5) Hematocrit 45.7 % (39.0-53.0) Mean Corpuscular Volume 89 fL (79-100) Mean Corpuscular Hemoglobin 29 pg (25-35) Mean Corpuscular Hemoglobin Concent 32 g/dL (31-37) Red Cell Distribution Width 12.7 % (11.5-14.5) Platelet Count 363 x10^3/uL (140-400) Neutrophils (%) (Auto) 64 % (31-73) Lymphocytes (%) (Auto) 24 % (24-48) Monocytes (%) (Auto) 10 % (0-9) Eosinophils (%) (Auto) 1 % (0-3) Basophils (%) (Auto) 1 % (0-3) Neutrophils # (Auto) 5.7 x10^3uL (1.8-7.7) Lymphocytes # (Auto) 2.1 x10^3/uL (1.0-4.8) Monocytes # (Auto) 0.9 x10^3/uL (0.0-1.1) Eosinophils # (Auto) 0.1 x10^3/uL (0.0-0.7) Basophils # (Auto) 0.1 x10^3/uL (0.0-0.2) Sodium Level 140 mmol/L (136-145) Potassium Level 3.7 mmol/L (3.5-5.1) Chloride Level 104 mmol/L (98-107) Carbon Dioxide Level 23 mmol/L (21-32) Anion Gap 13 (6-14) Blood Urea Nitrogen 11 mg/dL (8-26) Creatinine 1.2 mg/dL (0.7-1.3) Estimated GFR (Cockcroft-Gault) 89.3 BUN/Creatinine Ratio 9 (6-20) Glucose Level 116 mg/dL (70-99) Calcium Level 9.3 mg/dL (8.5-10.1) Magnesium Level 1.7 mg/dL (1.8-2.4) Total Bilirubin 0.7 mg/dL (0.2-1.0) Aspartate Amino Transf (AST/SGOT) 24 U/L (15-37) Alanine Aminotransferase (ALT/SGPT) 36 U/L (16-63) Alkaline Phosphatase 92 U/L (46-116) Troponin I Quantitative 0.122 ng/mL (0.000-0.055) 0.144 ng/mL (0.000-0.055) 0.139 ng/mL (0.000-0.055) YL-Yqy-A-Type Natriuretic Peptide 1839 pg/mL (0-124) Total Protein 7.4 g/dL (6.4-8.2) Albumin 3.5 g/dL (3.4-5.0) Albumin/Globulin Ratio 0.9 (1.0-1.7) Triglycerides Level 168 mg/dL (0-150) Cholesterol Level 233 mg/dL (0-200) LDL Cholesterol, Calculated 150 mg/dL (0-100) VLDL Cholesterol, Calculated 34 mg/dL (0-40) Non-HDL Cholesterol Calculated 184 mg/dL (0-129) HDL Cholesterol 49 mg/dL (40-60) Cholesterol/HDL Ratio 4.8 Thyroid Stimulating Hormone (TSH) 1.155 uIU/mL (0.358-3.74) Urine Collection Type Void Urine Color Yellow Urine Clarity Clear Urine pH 7.0 Urine Specific Milo 1.020 Urine Protein Negative mg/dL (NEG-TRACE) Urine Glucose (UA) Negative mg/dL (NEG) Urine Ketones (Stick) Negative mg/dL (NEG) Urine Blood Negative (NEG) Urine Nitrite Negative (NEG) Urine Bilirubin Negative (NEG) Urine Urobilinogen Dipstick 1.0 mg/dL (0.2 mg/dL) Urine Leukocyte Esterase Negative (NEG) Urine RBC 0 /HPF (0-2) Urine WBC 0 /HPF (0-4) Urine Bacteria 0 /HPF (0-FEW) Urine Opiates Screen Neg (NEG) Urine Methadone Screen Neg (NEG) Urine Barbiturates Neg (NEG) Urine Phencyclidine Screen Neg (NEG) Urine Amphetamine/Methamphetamine Neg (NEG) Urine Benzodiazepines Screen Neg (NEG) Urine Cocaine Screen Pos (NEG) Urine Cannabinoids Screen Pos (NEG) Urine Ethyl Alcohol Neg (NEG) Test 11/30/18 03:30 White Blood Count 11.8 x10^3/uL (4.0-11.0) Red Blood Count 4.61 x10^6/uL (4.30-5.70) Hemoglobin 13.2 g/dL (13.0-17.5) Hematocrit 41.0 % (39.0-53.0) Mean Corpuscular Volume 89 fL (79-100) Mean Corpuscular Hemoglobin 29 pg (25-35) Mean Corpuscular Hemoglobin Concent 32 g/dL (31-37) Red Cell Distribution Width 13.0 % (11.5-14.5) Platelet Count 342 x10^3/uL (140-400) Neutrophils (%) (Auto) 52 % (31-73) Lymphocytes (%) (Auto) 37 % (24-48) Monocytes (%) (Auto) 9 % (0-9) Eosinophils (%) (Auto) 1 % (0-3) Basophils (%) (Auto) 1 % (0-3) Neutrophils # (Auto) 6.2 x10^3uL (1.8-7.7) Lymphocytes # (Auto) 4.4 x10^3/uL (1.0-4.8) Monocytes # (Auto) 1.0 x10^3/uL (0.0-1.1) Eosinophils # (Auto) 0.1 x10^3/uL (0.0-0.7) Basophils # (Auto) 0.1 x10^3/uL (0.0-0.2) Sodium Level 141 mmol/L (136-145) Potassium Level 3.8 mmol/L (3.5-5.1) Chloride Level 106 mmol/L (98-107) Carbon Dioxide Level 24 mmol/L (21-32) Anion Gap 11 (6-14) Blood Urea Nitrogen 8 mg/dL (8-26) Creatinine 1.3 mg/dL (0.7-1.3) Estimated GFR (Cockcroft-Gault) 81.4 Glucose Level 105 mg/dL (70-99) Calcium Level 8.6 mg/dL (8.5-10.1) Triglycerides Level 136 mg/dL (0-150) Cholesterol Level 177 mg/dL (0-200) LDL Cholesterol, Calculated 111 mg/dL (0-100) VLDL Cholesterol, Calculated 27 mg/dL (0-40) Non-HDL Cholesterol Calculated 138 mg/dL (0-129) HDL Cholesterol 39 mg/dL (40-60) Cholesterol/HDL Ratio 4.5 Laboratory Tests Test 11/29/18 13:30 11/29/18 15:20 11/29/18 16:50 11/29/18 22:15 White Blood Count 8.8 x10^3/uL (4.0-11.0) Red Blood Count 5.16 x10^6/uL (4.30-5.70) Hemoglobin 14.8 g/dL (13.0-17.5) Hematocrit 45.7 % (39.0-53.0) Mean Corpuscular Volume 89 fL (79-100) Mean Corpuscular Hemoglobin 29 pg (25-35) Mean Corpuscular Hemoglobin Concent 32 g/dL (31-37) Red Cell Distribution Width 12.7 % (11.5-14.5) Platelet Count 363 x10^3/uL (140-400) Neutrophils (%) (Auto) 64 % (31-73) Lymphocytes (%) (Auto) 24 % (24-48) Monocytes (%) (Auto) 10 % (0-9) Eosinophils (%) (Auto) 1 % (0-3) Basophils (%) (Auto) 1 % (0-3) Neutrophils # (Auto) 5.7 x10^3uL (1.8-7.7) Lymphocytes # (Auto) 2.1 x10^3/uL (1.0-4.8) Monocytes # (Auto) 0.9 x10^3/uL (0.0-1.1) Eosinophils # (Auto) 0.1 x10^3/uL (0.0-0.7) Basophils # (Auto) 0.1 x10^3/uL (0.0-0.2) Sodium Level 140 mmol/L (136-145) Potassium Level 3.7 mmol/L (3.5-5.1) Chloride Level 104 mmol/L (98-107) Carbon Dioxide Level 23 mmol/L (21-32) Anion Gap 13 (6-14) Blood Urea Nitrogen 11 mg/dL (8-26) Creatinine 1.2 mg/dL (0.7-1.3) Estimated GFR (Cockcroft-Gault) 89.3 BUN/Creatinine Ratio 9 (6-20) Glucose Level 116 mg/dL (70-99) Calcium Level 9.3 mg/dL (8.5-10.1) Magnesium Level 1.7 mg/dL (1.8-2.4) Total Bilirubin 0.7 mg/dL (0.2-1.0) Aspartate Amino Transf (AST/SGOT) 24 U/L (15-37) Alanine Aminotransferase (ALT/SGPT) 36 U/L (16-63) Alkaline Phosphatase 92 U/L (46-116) Troponin I Quantitative 0.122 ng/mL (0.000-0.055) 0.144 ng/mL (0.000-0.055) 0.139 ng/mL (0.000-0.055) VU-Dvw-D-Type Natriuretic Peptide 1839 pg/mL (0-124) Total Protein 7.4 g/dL (6.4-8.2) Albumin 3.5 g/dL (3.4-5.0) Albumin/Globulin Ratio 0.9 (1.0-1.7) Triglycerides Level 168 mg/dL (0-150) Cholesterol Level 233 mg/dL (0-200) LDL Cholesterol, Calculated 150 mg/dL (0-100) VLDL Cholesterol, Calculated 34 mg/dL (0-40) Non-HDL Cholesterol Calculated 184 mg/dL (0-129) HDL Cholesterol 49 mg/dL (40-60) Cholesterol/HDL Ratio 4.8 Thyroid Stimulating Hormone (TSH) 1.155 uIU/mL (0.358-3.74) Urine Collection Type Void Urine Color Yellow Urine Clarity Clear Urine pH 7.0 Urine Specific Milo 1.020 Urine Protein Negative mg/dL (NEG-TRACE) Urine Glucose (UA) Negative mg/dL (NEG) Urine Ketones (Stick) Negative mg/dL (NEG) Urine Blood Negative (NEG) Urine Nitrite Negative (NEG) Urine Bilirubin Negative (NEG) Urine Urobilinogen Dipstick 1.0 mg/dL (0.2 mg/dL) Urine Leukocyte Esterase Negative (NEG) Urine RBC 0 /HPF (0-2) Urine WBC 0 /HPF (0-4) Urine Bacteria 0 /HPF (0-FEW) Urine Opiates Screen Neg (NEG) Urine Methadone Screen Neg (NEG) Urine Barbiturates Neg (NEG) Urine Phencyclidine Screen Neg (NEG) Urine Amphetamine/Methamphetamine Neg (NEG) Urine Benzodiazepines Screen Neg (NEG) Urine Cocaine Screen Pos (NEG) Urine Cannabinoids Screen Pos (NEG) Urine Ethyl Alcohol Neg (NEG) Test 11/30/18 03:30 White Blood Count 11.8 x10^3/uL (4.0-11.0) Red Blood Count 4.61 x10^6/uL (4.30-5.70) Hemoglobin 13.2 g/dL (13.0-17.5) Hematocrit 41.0 % (39.0-53.0) Mean Corpuscular Volume 89 fL (79-100) Mean Corpuscular Hemoglobin 29 pg (25-35) Mean Corpuscular Hemoglobin Concent 32 g/dL (31-37) Red Cell Distribution Width 13.0 % (11.5-14.5) Platelet Count 342 x10^3/uL (140-400) Neutrophils (%) (Auto) 52 % (31-73) Lymphocytes (%) (Auto) 37 % (24-48) Monocytes (%) (Auto) 9 % (0-9) Eosinophils (%) (Auto) 1 % (0-3) Basophils (%) (Auto) 1 % (0-3) Neutrophils # (Auto) 6.2 x10^3uL (1.8-7.7) Lymphocytes # (Auto) 4.4 x10^3/uL (1.0-4.8) Monocytes # (Auto) 1.0 x10^3/uL (0.0-1.1) Eosinophils # (Auto) 0.1 x10^3/uL (0.0-0.7) Basophils # (Auto) 0.1 x10^3/uL (0.0-0.2) Sodium Level 141 mmol/L (136-145) Potassium Level 3.8 mmol/L (3.5-5.1) Chloride Level 106 mmol/L (98-107) Carbon Dioxide Level 24 mmol/L (21-32) Anion Gap 11 (6-14) Blood Urea Nitrogen 8 mg/dL (8-26) Creatinine 1.3 mg/dL (0.7-1.3) Estimated GFR (Cockcroft-Gault) 81.4 Glucose Level 105 mg/dL (70-99) Calcium Level 8.6 mg/dL (8.5-10.1) Triglycerides Level 136 mg/dL (0-150) Cholesterol Level 177 mg/dL (0-200) LDL Cholesterol, Calculated 111 mg/dL (0-100) VLDL Cholesterol, Calculated 27 mg/dL (0-40) Non-HDL Cholesterol Calculated 138 mg/dL (0-129) HDL Cholesterol 39 mg/dL (40-60) Cholesterol/HDL Ratio 4.5 Medications Current Medications Meclizine HCl (Antivert) 25 mg 1X ONCE PO Last administered on 11/29/18at 13:39; Start 11/29/18 at 13:00; Stop 11/29/18 at 13:01; Status DC Sodium Chloride 1,000 ml @ 1,000 mls/hr 1X ONCE IV Last administered on 11/29/18at 13:36; Start 11/29/18 at 13:00; Stop 11/29/18 at 13:59; Status DC Ondansetron HCl (Zofran) 4 mg 1X ONCE IV Last administered on 11/29/18at 13:38; Start 11/29/18 at 13:00; Stop 11/29/18 at 13:01; Status DC Aspirin (videof.me Aspirin) 325 mg 1X ONCE PO Last administered on 11/29/18at 14:21; Start 11/29/18 at 14:15; Stop 11/29/18 at 14:16; Status DC Iohexol (Omnipaque 350 Mg/ml) 100 ml 1X ONCE IV Last administered on 11/29/18at 14:30; Start 11/29/18 at 14:30; Stop 11/29/18 at 14:31; Status DC Info (CONTRAST GIVEN -- Rx MONITORING) 1 each PRN DAILY PRN MC SEE COMMENTS; Start 11/29/18 at 14:30; Stop 12/01/18 at 14:29 Magnesium Sulfate/ Dextrose 100 ml @ 100 mls/hr 1X ONCE IV Last administered on 11/29/18at 15:31; Start 11/29/18 at 15:15; Stop 11/29/18 at 16:14; Status DC Labetalol HCl (Normodyne Iv Push) 20 mg PRN Q2HR PRN IVP ELEVATED BP, SEE COMMENTS; Start 11/29/18 at 15:30 Ondansetron HCl (Zofran) 4 mg PRN Q8HRS PRN IV NAUSEA/VOMITING; Start 11/29/18 at 16:15; Stop 11/30/18 at 16:14 Acetaminophen (Tylenol) 650 mg PRN Q4HRS PRN PO FEVER Last administered on 11/29/18at 21:46; Start 11/29/18 at 16:15; Stop 11/30/18 at 16:14 Nitroglycerin (Nitrostat) 0.4 mg PRN Q5MIN PRN SL CHEST PAIN; Start 11/29/18 at 16:15; Stop 11/30/18 at 16:14 Sodium Chloride 1,000 ml @ 100 mls/hr 1X ONCE IV Last administered on 11/29/18at 18:43; Start 11/29/18 at 17:15; Stop 11/30/18 at 03:14; Status DC Atorvastatin Calcium (Lipitor) 20 mg QHS PO Last administered on 11/29/18at 21:09; Start 11/29/18 at 21:00 Furosemide (Lasix) 20 mg 1X ONCE IVP Last administered on 11/30/18at 11:32; Start 11/30/18 at 10:00; Stop 11/30/18 at 10:01; Status DC Carvedilol (Coreg) 3.125 mg BIDWMEALS PO Last administered on 11/30/18at 11:31; Start 11/30/18 at 11:00 Enoxaparin Sodium (Lovenox 120mg Syringe) 110 mg Q12HR SQ Last administered on 11/30/18at 11:41; Start 11/30/18 at 10:00 Aspirin (Ecotrin) 81 mg [id number] PO Last administered on 11/30/18 11:31; Start 11/30/18 at 10:00 Vitals/I & O Vital Sign - Last 24 Hours 11/29/18 11/29/18 11/29/18 11/29/18 13:40 14:40 15:40 16:40 Pulse 109 112 100 102 Resp 20 20 20 20 Pulse Ox 100 97 98 97 11/29/18 11/29/18 11/29/18 11/29/18 17:18 17:40 17:45 19:50 Temp 98.0 98.2 98.0 98.2 Pulse 92 113 108 Resp 20 16 16 B/P (MAP) 144/99 (114) 138/89 (105) Pulse Ox 97 96 97 O2 Delivery Room Air Room Air Room Air 11/29/18 11/29/18 11/30/1822/19 20:00 23:04 03:29 07:00 Temp 97.9 98.3 98.2 97.9 98.3 98.2 Pulse 109 103 107 Resp 18 18 18 B/P (MAP) 127/87 (100) 139/90 (106) 115/68 (84) Pulse Ox 96 97 92 O2 Delivery Room Air Room Air Room Air Room Air 11/30/18 11/30/18 11:31 11:37 Temp 98.4 98.4 Pulse 106 115 Resp 18 B/P (MAP) 121/87 (98) Pulse Ox 91 O2 Delivery Room Air Intake and Output 11/29/18 11/29/18 11/30/18 15:00 23:00 07:00 Intake Total 1000 ml 590 ml 1600 ml Balance 1000 ml 590 ml 1600 ml APOLLO ALVARADO III DO November 30, 2018 13:11
--- NOTE | 2018-11-30 14:06 | PDOC2 ---
NEUROLOGY CONSULT Date of Admission Date of Admission DATE: 11/30/18 TIME: 13:53 Reason for Consult Reason for Consult: IMPRESSION: Dizziness/light headiness. Cocaine positive. Marijuana positive. HLD. Over weight. RECOMMENDATIONS/PLAN: Patient did nit want to take Statin and wanted to try diet first since lipids not very high. Patient education for illicit drug abstinence. FU with PCP. HISTORY OF THE PRESENT ILLNESS: This is a 23-y-old AA male patient who was admitted duo to dizziness and light headiness. Pt has not seen any doctor at least in the last 3 yrs. 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 Reports that in the last week he thought he had some allergies and nonproductive cough with some wheezing. He stated that he got up to use the bathroom and felt dizzy with VILLAGOMEZ and mild SOA and weak on 11/29/18. He drinks about 1 can of Monster a day and smokes tobacco. No visual or auditory disturbances, nor focalized sensory or motor deficits. PAST MEDICAL HISTORY Has not seen PCP for several years. PAST SURGICAL HISTORY No major surgery recently. FAMILY HISTORY Heart Disease (mother) SOCIAL HISTORY Smoke: <1 pack per day ALCOHOL: From time to time. Drugs: Marijuana, Cocaine. Lives: with Family ALLERGY: NKDA MEDICATIONS: Refer to MAR REVIEW OF SYSTEMS: Constitutional: Obesity. Head: No traumatic brain or head injury. Skin: No edema, or rash. Ear: No infection. Eyes: No vision loss or color blindness. Nose: No bleeding or purulent discharges. Hearing: No hearing decrease. Neck: No injury. Cardiac: No [place], arrhythmia. Pulmonary: Smoking. GI: No GI ulcer, GI bleeding. Urinary/genital: No dysuria, incontinence, urinary retention. Endocrinologic: Obesity. Skeletomuscular: No muscular atrophy. Neurological: see HP. Psychiatric: Substance and drug use/abuse. Otherwise, not [id number] review of systems. PHYSICAL EXAMINATION: General appearance is in no acute distress. HEENT: Normocephalic and nontraumatic. Eyes, nose, ears, and throat are unrema rkable. Neck is supple. No lymphadenopathy. No bruits are heard over the carotid artery. No crepitus. Cardiovascular: S1, S2, regular rate and rhythm. Pulmonary: Clear to auscultation bilaterally. Abdomen: Bowel sounds are positive. Abdomen is soft, nontender, and nondistended. Extremities: No rash, lesions, or edema. No restriction of range of motion NEUROLOGICAL EXAMINATION: Alert Oriented to time, place and person. PERRL. EOMI. CN: no focal findings. Muscle tone: within normal. Muscle strength: 5 DTR: 2 Plantar reflex: Flexor response bilaterally Gait: At baseline normal. Sensory exam: no abnormal findings. No cerebellar signs elicited. F-T-N test accurate. No pronator drift after 10 seconds. No leg drop after 10 seconds lifting. Current Medications Current Medications Current Medications Meclizine HCl (Antivert) 25 mg 1X ONCE PO Last administered on 11/29/18at 13:39; Start 11/29/18 at 13:00; Stop 11/29/18 at 13:01; Status DC Sodium Chloride 1,000 ml @ 1,000 mls/hr 1X ONCE IV Last administered on 11/29/18at 13:36; Start 11/29/18 at 13:00; Stop 11/29/18 at 13:59; Status DC Ondansetron HCl (Zofran) 4 mg 1X ONCE IV Last administered on 11/29/18at 13:38; Start 11/29/18 at 13:00; Stop 11/29/18 at 13:01; Status DC Aspirin (Ana Aspirin) 325 mg 1X ONCE PO Last administered on 11/29/18at 14:21; Start 11/29/18 at 14:15; Stop 11/29/18 at 14:16; Status DC Iohexol (Omnipaque 350 Mg/ml) 100 ml 1X ONCE IV Last administered on 11/29/18at 14:30; Start 11/29/18 at 14:30; Stop 11/29/18 at 14:31; Status DC Info (CONTRAST GIVEN -- Rx MONITORING) 1 each PRN DAILY PRN MC SEE COMMENTS; Start 11/29/18 at 14:30; Stop 12/01/18 at 14:29 Magnesium Sulfate/ Dextrose 100 ml @ 100 mls/hr 1X ONCE IV Last administered on 11/29/18at 15:31; Start 11/29/18 at 15:15; Stop 11/29/18 at 16:14; Status DC Labetalol HCl (Normodyne Iv Push) 20 mg PRN Q2HR PRN IVP ELEVATED BP, SEE COMMENTS; Start 11/29/18 at 15:30 Ondansetron HCl (Zofran) 4 mg PRN Q8HRS PRN IV NAUSEA/VOMITING; Start 11/29/18 at 16:15; Stop 11/30/18 at 16:14 Acetaminophen (Tylenol) 650 mg PRN Q4HRS PRN PO FEVER Last administered on 11/29/18at 21:46; Start 11/29/18 at 16:15; Stop 11/30/18 at 16:14 Nitroglycerin (Nitrostat) 0.4 mg PRN Q5MIN PRN SL CHEST PAIN; Start 11/29/18 at 16:15; Stop 11/30/18 at 16:14 Sodium Chloride 1,000 ml @ 100 mls/hr 1X ONCE IV Last administered on 11/29/18at 18:43; Start 11/29/18 at 17:15; Stop 11/30/18 at 03:14; Status DC Atorvastatin Calcium (Lipitor) 20 mg QHS PO Last administered on 11/29/18at 21:09; Start 11/29/18 at 21:00 Furosemide (Lasix) 20 mg 1X ONCE IVP Last administered on 11/30/18at 11:32; Start 11/30/18 at 10:00; Stop 11/30/18 at 10:01; Status DC Carvedilol (Coreg) 3.125 mg BIDWMEALS PO Last administered on 11/30/18at 11:31; Start 11/30/18 at 11:00 Enoxaparin Sodium (Lovenox 120mg Syringe) 110 mg Q12HR SQ Last administered on 11/30/18at 11:41; Start 11/30/18 at 10:00 Aspirin (Ecotrin) 81 mg DAILYWBKFT PO Last administered on 11/30/18at 11:31; Start 11/30/18 at 10:00 Allergies Allergies: Allergies Coded Allergies Type Severity Reaction Last Updated Verified pineapple Allergy Intermediate 11/30/18 Yes ROS Review of System The patient denies any associated fevers, chills, headache, ear pain, rhinorrhea, sore throat, stiff neck, productive cough, chest pain, shortness of breath, back or flank pain, abdominal pain, nausea, vomiting, diarrhea, con stipation, dysuria, rash, numbness, weakness, tingling, incontinence, difficulty ambulating, or diaphoresis. Physical Exam Physical Exam General: Well developed, well nourished, no acute distress, well appearing HEENT: Pupils equally round and reactive to light, EOMI, no discharge, normal conjunctiva Neck: Supple, no nuchal rigidity, no JVD, trachea midline, no tenderness Cardiac: RRR, no murmurs, no gallops, no rubs Chest/Lungs: CTAB, no wheeze, no rhonchi, no crackles Abdomen: soft, non-distended, no guarding, no peritoneal signs, non-tender Back: No tenderness Extremities: no edema, pulses intact, non-tender,capillary refill <3 sec bilateral upper and lower extremities, Neuro: Alert and oriented x 4, no focal deficits, normal speech Vitals Vitals: Vital Signs Date Time Temp Pulse Resp B/P (MAP) Pulse Ox O2 Delivery O2 Flow Rate FiO2 11/30/18 11:37 98.4 115 18 121/87 (98) 91 Room Air 98.4 Labs Labs Laboratory Tests Test 11/29/18 13:30 11/29/18 15:20 11/29/18 16:50 11/29/18 22:15 White Blood Count 8.8 x10^3/uL (4.0-11.0) Red Blood Count 5.16 x10^6/uL (4.30-5.70) Hemoglobin 14.8 g/dL (13.0-17.5) Hematocrit 45.7 % (39.0-53.0) Mean Corpuscular Volume 89 fL (79-100) Mean Corpuscular Hemoglobin 29 pg (25-35) Mean Corpuscular Hemoglobin Concent 32 g/dL (31-37) Red Cell Distribution Width 12.7 % (11.5-14.5) Platelet Count 363 x10^3/uL (140-400) Neutrophils (%) (Auto) 64 % (31-73) Lymphocytes (%) (Auto) 24 % (24-48) Monocytes (%) (Auto) 10 % (0-9) Eosinophils (%) (Auto) 1 % (0-3) Basophils (%) (Auto) 1 % (0-3) Neutrophils # (Auto) 5.7 x10^3uL (1.8-7.7) Lymphocytes # (Auto) 2.1 x10^3/uL (1.0-4.8) Monocytes # (Auto) 0.9 x10^3/uL (0.0-1.1) Eosinophils # (Auto) 0.1 x10^3/uL (0.0-0.7) Basophils # (Auto) 0.1 x10^3/uL (0.0-0.2) Sodium Level 140 mmol/L (136-145) Potassium Level 3.7 mmol/L (3.5-5.1) Chloride Level 104 mmol/L (98-107) Carbon Dioxide Level 23 mmol/L (21-32) Anion Gap 13 (6-14) Blood Urea Nitrogen 11 mg/dL (8-26) Creatinine 1.2 mg/dL (0.7-1.3) Estimated GFR (Cockcroft-Gault) 89.3 BUN/Creatinine Ratio 9 (6-20) Glucose Level 116 mg/dL (70-99) Calcium Level 9.3 mg/dL (8.5-10.1) Magnesium Level 1.7 mg/dL (1.8-2.4) Total Bilirubin 0.7 mg/dL (0.2-1.0) Aspartate Amino Transf (AST/SGOT) 24 U/L (15-37) Alanine Aminotransferase (ALT/SGPT) 36 U/L (16-63) Alkaline Phosphatase 92 U/L (46-116) Troponin I Quantitative 0.122 ng/mL (0.000-0.055) 0.144 ng/mL (0.000-0.055) 0.139 ng/mL (0.000-0.055) CB-Wor-X-Type Natriuretic Peptide 1839 pg/mL (0-124) Total Protein 7.4 g/dL (6.4-8.2) Albumin 3.5 g/dL (3.4-5.0) Albumin/Globulin Ratio 0.9 (1.0-1.7) Triglycerides Level 168 mg/dL (0-150) Cholesterol Level 233 mg/dL (0-200) LDL Cholesterol, Calculated 150 mg/dL (0-100) VLDL Cholesterol, Calculated 34 mg/dL (0-40) Non-HDL Cholesterol Calculated 184 mg/dL (0-129) HDL Cholesterol 49 mg/dL (40-60) Cholesterol/HDL Ratio 4.8 Thyroid Stimulating Hormone (TSH) 1.155 uIU/mL (0.358-3.74) Urine Collection Type Void Urine Color Yellow Urine Clarity Clear Urine pH 7.0 Urine Specific [place] 1.020 Urine Protein Negative mg/dL (NEG-TRACE) Urine Glucose (UA) Negative mg/dL (NEG) Urine Ketones (Stick) Negative mg/dL (NEG) Urine Blood Negative (NEG) Urine Nitrite Negative (NEG) Urine Bilirubin Negative (NEG) Urine Urobilinogen Dipstick 1.0 mg/dL (0.2 mg/dL) Urine Leukocyte Esterase Negative (NEG) Urine RBC 0 /HPF (0-2) Urine WBC 0 /HPF (0-4) Urine Bacteria 0 /HPF (0-FEW) Urine Opiates Screen Neg (NEG) Urine Methadone Screen Neg (NEG) Urine Barbiturates Neg (NEG) Urine Phencyclidine Screen Neg (NEG) Urine Amphetamine/Methamphetamine Neg (NEG) Urine Benzodiazepines Screen Neg (NEG) Urine Cocaine Screen Pos (NEG) Urine Cannabinoids Screen Pos (NEG) Urine Ethyl Alcohol Neg (NEG) Test 11/30/18 03:30 White Blood Count 11.8 x10^3/uL (4.0-11.0) Red Blood Count 4.61 x10^6/uL (4.30-5.70) Hemoglobin 13.2 g/dL (13.0-17.5) Hematocrit 41.0 % (39.0-53.0) Mean Corpuscular Volume 89 fL (79-100) Mean Corpuscular Hemoglobin 29 pg (25-35) Mean Corpuscular Hemoglobin Concent 32 g/dL (31-37) Red Cell Distribution Width 13.0 % (11.5-14.5) Platelet Count 342 x10^3/uL (140-400) Neutrophils (%) (Auto) 52 % (31-73) Lymphocytes (%) (Auto) 37 % (24-48) Monocytes (%) (Auto) 9 % (0-9) Eosinophils (%) (Auto) 1 % (0-3) Basophils (%) (Auto) 1 % (0-3) Neutrophils # (Auto) 6.2 x10^3uL (1.8-7.7) Lymphocytes # (Auto) 4.4 x10^3/uL (1.0-4.8) Monocytes # (Auto) 1.0 x10^3/uL (0.0-1.1) Eosinophils # (Auto) 0.1 x10^3/uL (0.0-0.7) Basophils # (Auto) 0.1 x10^3/uL (0.0-0.2) Sodium Level 141 mmol/L (136-145) Potassium Level 3.8 mmol/L (3.5-5.1) Chloride Level 106 mmol/L (98-107) Carbon Dioxide Level 24 mmol/L (21-32) Anion Gap 11 (6-14) Blood Urea Nitrogen 8 mg/dL (8-26) Creatinine 1.3 mg/dL (0.7-1.3) Estimated GFR (Cockcroft-Gault) 81.4 Glucose Level 105 mg/dL (70-99) Calcium Level 8.6 mg/dL (8.5-10.1) Triglycerides Level 136 mg/dL (0-150) Cholesterol Level 177 mg/dL (0-200) LDL Cholesterol, Calculated 111 mg/dL (0-100) VLDL Cholesterol, Calculated 27 mg/dL (0-40) Non-HDL Cholesterol Calculated 138 mg/dL (0-129) HDL Cholesterol 39 mg/dL (40-60) Cholesterol/HDL Ratio 4.5 Laboratory Tests Test 11/29/18 15:20 11/29/18 16:50 11/29/18 22:15 11/30/18 03:30 Urine Collection Type Void Urine Color Yellow Urine Clarity Clear Urine pH 7.0 Urine Specific [place] 1.020 Urine Protein Negative mg/dL (NEG-TRACE) Urine Glucose (UA) Negative mg/dL (NEG) Urine Ketones (Stick) Negative mg/dL (NEG) Urine Blood Negative (NEG) Urine Nitrite Negative (NEG) Urine Bilirubin Negative (NEG) Urine Urobilinogen Dipstick 1.0 mg/dL (0.2 mg/dL) Urine Leukocyte Esterase Negative (NEG) Urine RBC 0 /HPF (0-2) Urine WBC 0 /HPF (0-4) Urine Bacteria 0 /HPF (0-FEW) Urine Opiates Screen Neg (NEG) Urine Methadone Screen Neg (NEG) Urine Barbiturates Neg (NEG) Urine Phencyclidine Screen Neg (NEG) Urine Amphetamine/Methamphetamine Neg (NEG) Urine Benzodiazepines Screen Neg (NEG) Urine Cocaine Screen Pos (NEG) Urine Cannabinoids Screen Pos (NEG) Urine Ethyl Alcohol Neg (NEG) Troponin I Quantitative 0.144 ng/mL (0.000-0.055) 0.139 ng/mL (0.000-0.055) White Blood Count 11.8 x10^3/uL (4.0-11.0) Red Blood Count 4.61 x10^6/uL (4.30-5.70) Hemoglobin 13.2 g/dL (13.0-17.5) Hematocrit 41.0 % (39.0-53.0) Mean Corpuscular Volume 89 fL (79-100) Mean Corpuscular Hemoglobin 29 pg (25-35) Mean Corpuscular Hemoglobin Concent 32 g/dL (31-37) Red Cell Distribution Width 13.0 % (11.5-14.5) Platelet Count 342 x10^3/uL (140-400) Neutrophils (%) (Auto) 52 % (31-73) Lymphocytes (%) (Auto) 37 % (24-48) Monocytes (%) (Auto) 9 % (0-9) Eosinophils (%) (Auto) 1 % (0-3) Basophils (%) (Auto) 1 % (0-3) Neutrophils # (Auto) 6.2 x10^3uL (1.8-7.7) Lymphocytes # (Auto) 4.4 x10^3/uL (1.0-4.8) Monocytes # (Auto) 1.0 x10^3/uL (0.0-1.1) Eosinophils # (Auto) 0.1 x10^3/uL (0.0-0.7) Basophils # (Auto) 0.1 x10^3/uL (0.0-0.2) Sodium Level 141 mmol/L (136-145) Potassium Level 3.8 mmol/L (3.5-5.1) Chloride Level 106 mmol/L (98-107) Carbon Dioxide Level 24 mmol/L (21-32) Anion Gap 11 (6-14) Blood Urea Nitrogen 8 mg/dL (8-26) Creatinine 1.3 mg/dL (0.7-1.3) Estimated GFR (Cockcroft-Gault) 81.4 Glucose Level 105 mg/dL (70-99) Calcium Level 8.6 mg/dL (8.5-10.1) Triglycerides Level 136 mg/dL (0-150) Cholesterol Level 177 mg/dL (0-200) LDL Cholesterol, Calculated 111 mg/dL (0-100) VLDL Cholesterol, Calculated 27 mg/dL (0-40) Non-HDL Cholesterol Calculated 138 mg/dL (0-129) HDL Cholesterol 39 mg/dL (40-60) Cholesterol/HDL Ratio 4.5 DENISE REYES MD November 30, 2018 14:06
--- NOTE | 2018-11-30 15:01 | RAD ---
CT HEAD WO CONTRAST History: Dizziness, gait instability Comparison: None. Technique: Noncontrast CT imaging was performed of the head. Exposure: One or more of the following individualized dose reduction techniques were utilized for this examination: 1. Automated exposure control 2. Adjustment of the mA and/or kV according to patient size 3. Use of iterative reconstruction technique. Findings: No acute extra-axial or parenchymal hemorrhage is identified. There is no significant intra-axial mass effect, midline shift, or extra-axial fluid collection. The mendoza-white differentiation of the major vascular territories is preserved. The ventricles, sulci, and cisterns are within normal limits in size and configuration. The mastoid air cells and the visualized paranasal sinuses are overall aerated, likely tiny right maxillary sinus mucous retention cyst not fully included. No acute calvarial abnormality is identified. Impression: 1. No acute intracranial abnormality is identified. Electronically signed by: Aravind Chau MD (11/30/2018 2:59 PM) [id number]
[2018-11-30 15:20] VITALS: BP_SYST 117; BP_SYST 125; BP_DIAS 58; BP_DIAS 69
[2018-11-30 19:00] VITALS: BP 111/77
[2018-11-30] MEDS: ATORVASTATIN CALCIUM 20 MG TABLET PO SCH (21:25)
[2018-11-30 23:00] VITALS: BP 136/88
[2018-12-01] VITALS (19 sets, daily range): BP systolic 105–136; BP diastolic 58–90
[2018-12-01] MEDS: ASPIRIN ENTERIC COATED 81 MG TABLET.DR. PO SCH (09:15)
[2018-12-01] MEDS: CARVEDILOL 3.125 MG TABLET. PO SCH ×2 (09:19→18:14)
[2018-12-01] MEDS ORDERED: VERAPAMIL 5 MG/2 ML VIAL. ONE ×2 (10:00→10:05)
[2018-12-01] MEDS ORDERED: fentaNYL PF VIAL 100 MCG/2 ML VIAL ONE (10:05)
[2018-12-01] MEDS ORDERED: HEPARIN for IV BOLUS 10,000 UNIT/10 ML VIAL. ONE (10:05)
[2018-12-01] MEDS ORDERED: NITROGLYCERIN 200 MCG/2 ML SYRINGE FOR CATH/VASC LAB. ONE (10:05)
[2018-12-01] MEDS ORDERED: MIDAZOLAM HCL/PF 2 MG/2 ML VIAL. ONE (10:05)
[2018-12-01] MEDS ORDERED: IODIXANOL 320 MG/ML 100 ML VIAL. ONE (10:06)
[2018-12-01] MEDS ORDERED: LIDOCAINE 1% PF 2 ML VIAL. ONE (10:06)
[2018-12-01] MEDS ORDERED: LIDOCAINE 1% Multi-Dose 20 ML VIAL. ONE (10:20)
[2018-12-01] MEDS ORDERED: CONTRAST GIVEN. MC PRN (10:45)
[2018-12-01] MEDS ORDERED: LIDOCAINE 1% Multi-Dose 20 ML VIAL. INJ ONE (10:45)
[2018-12-01] MEDS ORDERED: MIDAZOLAM HCL/PF 2 MG/2 ML VIAL. IV ONE (10:45)
[2018-12-01] MEDS ORDERED: fentaNYL PF VIAL 100 MCG/2 ML VIAL IV ONE (10:45)
[2018-12-01] MEDS ORDERED: IODIXANOL 320 MG/ML 100 ML VIAL. IART ONE (10:45)
--- NOTE | 2018-12-01 10:59 | CARD ---
MR#: [id number] Date of Study: 12/01/2018 Ordering Physician: DULCE ESPINOSA, Referring Physician: ALDEN PATEL, Tech: RIAN CARR RTR APPROVED REPORT Technologist: RIAN CARR RTR Nurse: Nadine Rivero R.N. Procedure(s) performed: MODERATE SEDATION TIME: 25 MIN FLUORO TIME:1.6 MIN DOSE:33.7 GYCM2 CONTRAST: 41 C, Coronary angiography HISTORY The patient is a 23 year-old male with a history of : previous CHF. INDICATION The indication(s) include : dyspnea, valvular heart disease. CSHA Clinical Frailty Scale CS Clinical Frailty Scale: Vulnerable Heart Failure Heart Failure: Yes If Yes, Newly Diagnosed: Yes If Yes, HF Type: Diastolic Systolic If Yes, NYHA Class: Class III PROCEDURE NARRATIVE After explaining the risks and benefits of the procedure and alternatives, informed consent was obtai sofia. The patient was brought electively to the cardiac catheterization lab in a fasting state. A patricia eout was performed confirming the patient's name, date of , procedure, and site of procedure. A ll necessary personnel were wearing the appropriate protective equipment and radiation monitor device s. (See nursing notes for medications administered). The right groin was sterilely prepped and drap ed in the usual fashion. The right groin was infiltrated with 10 mL of 2% lidocaine for subcutaneous anesthesia. A 6 F sheath was inserted into the right femoral artery without difficulty. Right and left coronary angiography was performed using a JR4 and JL4 catheter. Left ventricular end diastolic pressure was obtained with a pigtail catheter and pullback was performed. All catheter exchanges an d advancements were performed over a guidewire. At case completion the right femoral sheath was marcella calli and hemostasis was achieved with an Angioseal Device after limited femoral angiography confirmed adequate vessel size and anatomy. There were no acute complications. HEMODYNAMICS: AO: 120/80 LVEDP 31 mm Hg No gradient on LV to aortic pullback. LEFT VENTRICULOGRAM: Deferred due to known LV dysfunction and moderate to severe MR. CORONARY ANGIOGRAPHY: LM is a large caliber vessel with normal angiographic appearance. LAD is a large caliber vessel with normal angiographic appearance. Ramus is a large caliber vessel with normal angiographic appearance. LCx is a small caliber non-dominant vessel with normal angiographic appearance. RCA is a moderate caliber dominant vessel with normal angiographic appearance. RPDA is a small caliber vessel with normal angiographic appearance. Conclusion 1. Acute on chronic systolic and diastolic HF, LVEDP 31 mm Hg 2. Normal angiographic appearance of the coronary arteries. Recommendations Aggressive Medical Therapy Signed by : Josué Nice, Electronically Approved : 12/01/2018 10:58:50
[2018-12-01 11:06] LABS: HEMATOCRIT 42.9 % (39.0-53.0); HEMOGLOBIN 14.2 g/dL (13.0-17.5); RED BLOOD COUNT 4.86 x10^6/uL (4.30-5.70); RED CELL DISTRIBUTION WIDTH 12.7 % (11.5-14.5); WHITE BLOOD COUNT 10.1 x10^3/uL (4.0-11.0)
[2018-12-01 11:19] LABS: CALCIUM 8.8 mg/dL (8.5-10.1); CREATININE 1.2 mg/dL (0.7-1.3); GFR 89.3; POTASSIUM 3.7 mmol/L (3.5-5.1)
[2018-12-01 11:46] LABS: PROTHROMBIN TIME PATIENT 15.4 SEC (11.7-14.0)
--- NOTE | 2018-12-01 14:05 | PDOC ---
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 dispo: optimize medical therapy. needs outpatient follow up with cards History of Present Illness History of Present Illness sob last night. for cath today. Vitals Vitals Vital Signs Date Time Temp Pulse Resp B/P (MAP) Pulse Ox O2 Delivery O2 Flow Rate FiO2 12/01/18 11:12 Room Air 12/01/18 11:00 98.0 112 18 119/69 (86) 95 98.0 Physical Exam General: Alert, Oriented X3, Cooperative Heart: Regular rate (SR/ST), Other (S3 diatolic murmur 3/6 loudest at erbs) Lungs: Clear Abdomen: Normal bowel sounds, Soft Extremities: No cyanosis, No edema Skin: No breakdown, No significant lesion Labs LABS Laboratory Tests Test 12/01/18 10:50 White Blood Count 10.1 x10^3/uL (4.0-11.0) Red Blood Count 4.86 x10^6/uL (4.30-5.70) Hemoglobin 14.2 g/dL (13.0-17.5) Hematocrit 42.9 % (39.0-53.0) Mean Corpuscular Volume 88 fL (79-100) Mean Corpuscular Hemoglobin 29 pg (25-35) Mean Corpuscular Hemoglobin Concent 33 g/dL (31-37) Red Cell Distribution Width 12.7 % (11.5-14.5) Platelet Count 354 x10^3/uL (140-400) Prothrombin Time 15.4 SEC (11.7-14.0) Prothromb Time International Ratio 1.3 (0.8-1.1) Sodium Level 141 mmol/L (136-145) Potassium Level 3.7 mmol/L (3.5-5.1) Chloride Level 105 mmol/L (98-107) Carbon Dioxide Level 23 mmol/L (21-32) Anion Gap 13 (6-14) Blood Urea Nitrogen 8 mg/dL (8-26) Creatinine 1.2 mg/dL (0.7-1.3) Estimated GFR (Cockcroft-Gault) 89.3 Glucose Level 103 mg/dL (70-99) Calcium Level 8.8 mg/dL (8.5-10.1) Assessment and Plan Assessmemt and Plan Problems Medical Problems: (1) Dizziness Status: Acute (2) Non-ST elevation [place] (NSTEMI) Status: Acute Comment Review of Relevant I have reviewed the following items reshma (where applicable) has been applied. Labs Laboratory Tests Test 11/29/18 15:20 11/29/18 16:50 11/29/18 22:15 11/30/18 03:30 Urine Collection Type Void Urine Color Yellow Urine Clarity Clear Urine pH 7.0 Urine Specific [place] 1.020 Urine Protein Negative mg/dL (NEG-TRACE) Urine Glucose (UA) Negative mg/dL (NEG) Urine Ketones (Stick) Negative mg/dL (NEG) Urine Blood Negative (NEG) Urine Nitrite Negative (NEG) Urine Bilirubin Negative (NEG) Urine Urobilinogen Dipstick 1.0 mg/dL (0.2 mg/dL) Urine Leukocyte Esterase Negative (NEG) Urine RBC 0 /HPF (0-2) Urine WBC 0 /HPF (0-4) Urine Bacteria 0 /HPF (0-FEW) Urine Opiates Screen Neg (NEG) Urine Methadone Screen Neg (NEG) Urine Barbiturates Neg (NEG) Urine Phencyclidine Screen Neg (NEG) Urine Amphetamine/Methamphetamine Neg (NEG) Urine Benzodiazepines Screen Neg (NEG) Urine Cocaine Screen Pos (NEG) Urine Cannabinoids Screen Pos (NEG) Urine Ethyl Alcohol Neg (NEG) Troponin I Quantitative 0.144 ng/mL (0.000-0.055) 0.139 ng/mL (0.000-0.055) White Blood Count 11.8 x10^3/uL (4.0-11.0) Red Blood Count 4.61 x10^6/uL (4.30-5.70) Hemoglobin 13.2 g/dL (13.0-17.5) Hematocrit 41.0 % (39.0-53.0) Mean Corpuscular Volume 89 fL (79-100) Mean Corpuscular Hemoglobin 29 pg (25-35) Mean Corpuscular Hemoglobin Concent 32 g/dL (31-37) Red Cell Distribution Width 13.0 % (11.5-14.5) Platelet Count 342 x10^3/uL (140-400) Neutrophils (%) (Auto) 52 % (31-73) Lymphocytes (%) (Auto) 37 % (24-48) Monocytes (%) (Auto) 9 % (0-9) Eosinophils (%) (Auto) 1 % (0-3) Basophils (%) (Auto) 1 % (0-3) Neutrophils # (Auto) 6.2 x10^3uL (1.8-7.7) Lymphocytes # (Auto) 4.4 x10^3/uL (1.0-4.8) Monocytes # (Auto) 1.0 x10^3/uL (0.0-1.1) Eosinophils # (Auto) 0.1 x10^3/uL (0.0-0.7) Basophils # (Auto) 0.1 x10^3/uL (0.0-0.2) Sodium Level 141 mmol/L (136-145) Potassium Level 3.8 mmol/L (3.5-5.1) Chloride Level 106 mmol/L (98-107) Carbon Dioxide Level 24 mmol/L (21-32) Anion Gap 11 (6-14) Blood Urea Nitrogen 8 mg/dL (8-26) Creatinine 1.3 mg/dL (0.7-1.3) Estimated GFR (Cockcroft-Gault) 81.4 Glucose Level 105 mg/dL (70-99) Calcium Level 8.6 mg/dL (8.5-10.1) Triglycerides Level 136 mg/dL (0-150) Cholesterol Level 177 mg/dL (0-200) LDL Cholesterol, Calculated 111 mg/dL (0-100) VLDL Cholesterol, Calculated 27 mg/dL (0-40) Non-HDL Cholesterol Calculated 138 mg/dL (0-129) HDL Cholesterol 39 mg/dL (40-60) Cholesterol/HDL Ratio 4.5 Test 12/01/18 10:50 White Blood Count 10.1 x10^3/uL (4.0-11.0) Red Blood Count 4.86 x10^6/uL (4.30-5.70) Hemoglobin 14.2 g/dL (13.0-17.5) Hematocrit 42.9 % (39.0-53.0) Mean Corpuscular Volume 88 fL (79-100) Mean Corpuscular Hemoglobin 29 pg (25-35) Mean Corpuscular Hemoglobin Concent 33 g/dL (31-37) Red Cell Distribution Width 12.7 % (11.5-14.5) Platelet Count 354 x10^3/uL (140-400) Prothrombin Time 15.4 SEC (11.7-14.0) Prothromb Time International Ratio 1.3 (0.8-1.1) Sodium Level 141 mmol/L (136-145) Potassium Level 3.7 mmol/L (3.5-5.1) Chloride Level 105 mmol/L (98-107) Carbon Dioxide Level 23 mmol/L (21-32) Anion Gap 13 (6-14) Blood Urea Nitrogen 8 mg/dL (8-26) Creatinine 1.2 mg/dL (0.7-1.3) Estimated GFR (Cockcroft-Gault) 89.3 Glucose Level 103 mg/dL (70-99) Calcium Level 8.8 mg/dL (8.5-10.1) Laboratory Tests Test 12/01/18 10:50 White Blood Count 10.1 x10^3/uL (4.0-11.0) Red Blood Count 4.86 x10^6/uL (4.30-5.70) Hemoglobin 14.2 g/dL (13.0-17.5) Hematocrit 42.9 % (39.0-53.0) Mean Corpuscular Volume 88 fL (79-100) Mean Corpuscular Hemoglobin 29 pg (25-35) Mean Corpuscular Hemoglobin Concent 33 g/dL (31-37) Red Cell Distribution Width 12.7 % (11.5-14.5) Platelet Count 354 x10^3/uL (140-400) Prothrombin Time 15.4 SEC (11.7-14.0) Prothromb Time International Ratio 1.3 (0.8-1.1) Sodium Level 141 mmol/L (136-145) Potassium Level 3.7 mmol/L (3.5-5.1) Chloride Level 105 mmol/L (98-107) Carbon Dioxide Level 23 mmol/L (21-32) Anion Gap 13 (6-14) Blood Urea Nitrogen 8 mg/dL (8-26) Creatinine 1.2 mg/dL (0.7-1.3) Estimated GFR (Cockcroft-Gault) 89.3 Glucose Level 103 mg/dL (70-99) Calcium Level 8.8 mg/dL (8.5-10.1) Medications Current Medications Meclizine HCl (Antivert) 25 mg 1X ONCE PO Last administered on 11/29/18at 13:39; Start 11/29/18 at 13:00; Stop 11/29/18 at 13:01; Status DC Sodium Chloride 1,000 ml @ 1,000 mls/hr 1X ONCE IV Last administered on 11/29/18at 13:36; Start 11/29/18 at 13:00; Stop 11/29/18 at 13:59; Status DC Ondansetron HCl (Zofran) 4 mg 1X ONCE IV Last administered on 11/29/18at 13:38; Start 11/29/18 at 13:00; Stop 11/29/18 at 13:01; Status DC Aspirin (Bountii Aspirin) 325 mg 1X ONCE PO Last administered on 11/29/18at 14:21; Start 11/29/18 at 14:15; Stop 11/29/18 at 14:16; Status DC Iohexol (Omnipaque 350 Mg/ml) 100 ml 1X ONCE IV Last administered on 11/29/18at 14:30; Start 11/29/18 at 14:30; Stop 11/29/18 at 14:31; Status DC Info (CONTRAST GIVEN -- Rx MONITORING) 1 each PRN DAILY PRN MC SEE COMMENTS; Start 11/29/18 at 14:30; Stop 12/01/18 at 14:29 Magnesium Sulfate/ Dextrose 100 ml @ 100 mls/hr 1X ONCE IV Last administered on 11/29/18at 15:31; Start 11/29/18 at 15:15; Stop 11/29/18 at 16:14; Status DC Labetalol HCl (Normodyne Iv Push) 20 mg PRN Q2HR PRN IVP ELEVATED BP, SEE COMMENTS; Start 11/29/18 at 15:30 Ondansetron HCl (Zofran) 4 mg PRN Q8HRS PRN IV NAUSEA/VOMITING; Start 11/29/18 at 16:15; Stop 11/30/18 at 16:14; Status DC Acetaminophen (Tylenol) 650 mg PRN Q4HRS PRN PO FEVER Last administered on 11/29/18at 21:46; Start 11/29/18 at 16:15; Stop 11/30/18 at 16:14; Status DC Nitroglycerin (Nitrostat) 0.4 mg PRN Q5MIN PRN SL CHEST PAIN; Start 11/29/18 at 16:15; Stop 11/30/18 at 16:14; Status DC Sodium Chloride 1,000 ml @ 100 mls/hr 1X ONCE IV Last administered on 11/29/18at 18:43; Start 11/29/18 at 17:15; Stop 11/30/18 at 03:14; Status DC Atorvastatin Calcium (Lipitor) 20 mg QHS PO Last administered on 11/30/18at 21:25; Start 11/29/18 at 21:00 Furosemide (Lasix) 20 mg 1X ONCE IVP Last administered on 11/30/18at 11:32; Start 11/30/18 at 10:00; Stop 11/30/18 at 10:01; Status DC Carvedilol (Coreg) 3.125 mg BIDWMEALS PO Last administered on 12/01/18at 09:19; Start 11/30/18 at 11:00 Enoxaparin Sodium (Lovenox 120mg Syringe) 110 mg Q12HR SQ Last administered on 11/30/18at 21:25; Start 11/30/18 at 10:00; Stop 11/30/18 at 23:00; Status DC Aspirin (Ecotrin) 81 mg DAILYWBKFT PO Last administered on 12/01/18at 09:15; Start 11/30/18 at 10:00 Fentanyl Citrate (Fentanyl 2ml Vial) 100 mcg STK-MED ONCE .ROUTE ; Start 12/01/18 at 10:05; Stop 12/01/18 at 10:06; Status DC Midazolam HCl (Versed) 2 mg STK-MED ONCE .ROUTE ; Start 12/01/18 at 10:05; Stop 12/01/18 at 10:06; Status DC Heparin Sodium (Porcine) (Heparin Sodium) 10,000 unit STK-MED ONCE .ROUTE ; Start 12/01/18 at 10:05; Stop 12/01/18 at 10:06; Status DC Verapamil HCl (Verapamil) 5 mg STK-MED ONCE .ROUTE ; Start 12/01/18 at 10:05; Stop 12/01/18 at 10:06; Status DC Nitroglycerin (Nitroglycerin) 200 mcg STK-MED ONCE .ROUTE ; Start 12/01/18 at 10:05; Stop 12/01/18 at 10:06; Status DC Iodixanol (Visipaque 320) 100 ml STK-MED ONCE .ROUTE ; Start 12/01/18 at 10:06; Stop 12/01/18 at 10:07; Status DC Lidocaine HCl (Xylocaine-Mpf 1% 2ml Vial) 2 ml STK-MED ONCE .ROUTE ; Start 12/01/18 at 10:06; Stop 12/01/18 at 10:07; Status DC Heparin Sodium/ Sodium Chloride 1,000 ml @ As Directed STK-MED ONCE .ROUTE ; Start 12/01/18 at 10:06; Stop 12/01/18 at 10:07; Status DC Lidocaine HCl (Lidocaine 1% 20ml Vial) 20 ml STK-MED ONCE .ROUTE ; Start 12/01/18 at 10:20; Stop 12/01/18 at 10:21; Status DC Heparin Sodium/ Sodium Chloride (HEPARIN for ARTERIAL LINE FLUSH) 1,000 unit 1X ONCE IART Last administered on 12/01/18at 10:42; Start 12/01/18 at 10:45; Stop 12/01/18 at 10:46; Status DC Midazolam HCl (Versed) 2 mg 1X ONCE IV Last administered on 12/01/18at 10:42; Start 12/01/18 at 10:45; Stop 12/01/18 at 10:46; Status DC Fentanyl Citrate (Fentanyl 2ml Vial) 100 mcg 1X ONCE IV Last administered on 12/01/18at 10:42; Start 12/01/18 at 10:45; Stop 12/01/18 at 10:46; Status DC Iodixanol (Visipaque 320) 100 ml 1X ONCE IART Last administered on 12/01/18at 10:43; Start 12/01/18 at 10:45; Stop 12/01/18 at 10:46; Status DC Lidocaine HCl (Lidocaine 1% 20ml Vial) 20 ml 1X ONCE INJ Last administered on 12/01/18at 10:42; Start 12/01/18 at 10:45; Stop 12/01/18 at 10:46; Status DC Info (CONTRAST GIVEN -- Rx MONITORING) 1 each PRN DAILY PRN MC SEE COMMENTS; Start 12/01/18 at 10:45; Stop 12/03/18 at 10:44 Vitals/I & O Vital Sign - Last 24 Hours 11/30/18 11/30/18 11/30/18 11/30/18 15:20 17:08 19:00 20:00 Temp 98.4 98.0 98.4 98.0 Pulse 104 110 91 Resp 18 19 B/P (MAP) 117/69 (85) 111/77 (88) Pulse Ox 96 97 O2 Delivery Room Air Room Air Room Air 11/30/18 12/01/18 12/01/18 12/01/18 23:00 03:00 07:00 08:00 Temp 98.0 98.1 98.2 98.0 98.1 98.2 Pulse 11 105 102 Resp 18 18 16 B/P (MAP) 136/88 (104) 131/74 (93) 132/71 (91) Pulse Ox 97 97 94 O2 Delivery Room Air Room Air Room Air Room Air 12/01/18 12/01/18 12/01/18 12/01/18 09:19 10:42 10:47 11:00 Temp 98.0 98.0 Pulse 114 107 112 Resp 18 16 18 B/P (MAP) 119/69 (86) Pulse Ox 94 95 O2 Delivery Room Air Room Air 12/01/18 11:12 O2 Delivery Room Air Intake and Output 11/30/18 11/30/18 12/01/18 15:00 23:00 07:00 Intake Total 180 ml 250 ml 0 ml Output Total 1200 ml 700 ml Balance -1020 ml -450 ml 0 ml KIMBERLY GAMBLE MD December 01, 2018 14:05
--- NOTE | 2018-12-01 16:12 | PDOC ---
PROGRESS NOTES Assessment Assessment Dizziness/light headiness. Cocaine positive. Marijuana positive. HLD. Over weight. RECOMMENDATIONS/PLAN: Patient did not want to take Statin and wanted to try diet first since lipids not very high. Patient education for illicit drug abstinence. FU with PCP. Discussed with his mother at bedside on a daily basis. HISTORY OF THE PRESENT ILLNESS: This is a 23-y-old AA male patient who was admitted duo to dizziness and light headiness. Pt has not seen any doctor at least in the last 3 yrs. 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 Reports that in the last week he thought he had some allergies and nonproductive cough with some wheezing. He stated that he got up to use the bathroom and felt dizzy with VILLAGOMEZ and mild SOA and weak on 11/29/18. He drinks about 1 can of Monster a day and smokes tobacco. No visual or auditory disturbances, nor focalized sensory or motor deficits. PAST MEDICAL HISTORY Has not seen PCP for several years. PAST SURGICAL HISTORY No major surgery recently. FAMILY HISTORY Heart Disease (mother) SOCIAL HISTORY Smoke: <1 pack per day ALCOHOL: From time to time. Drugs: Marijuana, Cocaine. Lives: with Family ALLERGY: NKDA MEDICATIONS: Refer to MAR REVIEW OF SYSTEMS: Constitutional: Obesity. Head: No traumatic brain or head injury. Skin: No edema, or rash. Ear: No infection. Eyes: No vision loss or color blindness. Nose: No bleeding or purulent discharges. Hearing: No hearing decrease. Neck: No injury. Cardiac: No GA, arrhythmia. Pulmonary: Smoking. GI: No GI ulcer, GI bleeding. Urinary/genital: No dysuria, incontinence, urinary retention. Endocrinologic: Obesity. Skeletomuscular: No muscular atrophy. Neurological: see HP. Psychiatric: Substance and drug use/abuse. Otherwise, not [id number] review of systems. PHYSICAL EXAMINATION: General appearance is in no acute distress. HEENT: Normocephalic and nontraumatic. Eyes, nose, ears, and throat are unremarkable. Neck is supple. No lymphadenopathy. No bruits are heard over the carotid artery. No crepitus. Cardiovascular: S1, S2, regular rate and rhythm. Pulmonary: Clear to auscultation bilaterally. Abdomen: Bowel sounds are positive. Abdomen is soft, nontender, and nondistended. Extremities: No rash, lesions, or edema. No restriction of range of motion NEUROLOGICAL EXAMINATION: Alert Oriented to time, place and person. PERRL. EOMI. CN: no focal findings. Muscle tone: within normal. Muscle strength: 5 DTR: 2 Plantar reflex: Flexor response bilaterally Gait: At baseline normal. Sensory exam: no abnormal findings. No cerebellar signs elicited. F-T-N test accurate. No pronator drift after 10 seconds. No leg drop after 10 seconds lifting. Objective Objective Vital Signs Date Time Temp Pulse Resp B/P (MAP) Pulse Ox O2 Delivery O2 Flow Rate FiO2 12/01/18 15:00 98.0 114 18 105/58 (74) 96 Room Air 98.0 Intake and Output 12/01/18 07:00 Intake Total 430 ml Output Total 1900 ml Balance -1470 ml Intake Oral 430 ml Output Urine Total 1900 ml # Voids 1 Vitals Signs Vitals VS - Last 72 Hours, by Label Date Time Temp Pulse Resp B/P (MAP) Pulse Ox O2 Delivery O2 Flow Rate FiO2 12/01/18 15:00 98.0 114 18 105/58 (74) 96 Room Air 98.0 12/01/18 11:12 Room Air 12/01/18 11:00 98.0 112 18 119/69 (86) 95 Room Air 98.0 12/01/18 10:47 107 16 94 Room Air 12/01/18 10:42 18 12/01/18 09:19 114 12/01/18 08:00 Room Air 12/01/18 07:00 98.2 102 16 132/71 (91) 94 Room Air 98.2 12/01/18 03:00 98.1 105 18 131/74 (93) 97 Room Air 98.1 11/30/18 23:00 98.0 11 18 136/88 (104) 97 Room Air 98.0 11/30/18 20:00 Room Air 11/30/18 19:00 98.0 91 19 111/77 (88) 97 Room Air 98.0 11/30/18 17:08 110 11/30/18 15:20 98.4 104 18 117/69 (85) 96 Room Air 98.4 11/30/18 11:37 98.4 115 18 121/87 (98) 91 Room Air 98.4 11/30/18 11:31 106 11/30/18 08:00 Room Air 11/30/18 07:00 98.2 107 18 115/68 (84) 92 Room Air 98.2 Laboratory Laboratory Laboratory Tests Test 12/01/18 10:50 White Blood Count 10.1 x10^3/uL (4.0-11.0) Red Blood Count 4.86 x10^6/uL (4.30-5.70) Hemoglobin 14.2 g/dL (13.0-17.5) Hematocrit 42.9 % (39.0-53.0) Mean Corpuscular Volume 88 fL (79-100) Mean Corpuscular Hemoglobin 29 pg (25-35) Mean Corpuscular Hemoglobin Concent 33 g/dL (31-37) Red Cell Distribution Width 12.7 % (11.5-14.5) Platelet Count 354 x10^3/uL (140-400) Prothrombin Time 15.4 SEC (11.7-14.0) Prothromb Time International Ratio 1.3 (0.8-1.1) Sodium Level 141 mmol/L (136-145) Potassium Level 3.7 mmol/L (3.5-5.1) Chloride Level 105 mmol/L (98-107) Carbon Dioxide Level 23 mmol/L (21-32) Anion Gap 13 (6-14) Blood Urea Nitrogen 8 mg/dL (8-26) Creatinine 1.2 mg/dL (0.7-1.3) Estimated GFR (Cockcroft-Gault) 89.3 Glucose Level 103 mg/dL (70-99) Calcium Level 8.8 mg/dL (8.5-10.1) Medication Medications Current Medications Fentanyl Citrate (Fentanyl 2ml Vial) 100 mcg 1X ONCE IV Last administered on 12/01/18at 10:42; Start 12/01/18 at 10:45; Stop 12/01/18 at 10:46; Status DC Fentanyl Citrate (Fentanyl 2ml Vial) 100 mcg STK-MED ONCE .ROUTE ; Start 12/01/18 at 10:05; Stop 12/01/18 at 10:06; Status DC Heparin Sodium (Porcine) (Heparin Sodium) 10,000 unit STK-MED ONCE .ROUTE ; Start 12/01/18 at 10:05; Stop 12/01/18 at 10:06; Status DC Heparin Sodium/ Sodium Chloride 1,000 ml @ As Directed STK-MED ONCE .ROUTE ; Start 12/01/18 at 10:06; Stop 12/01/18 at 10:07; Status DC Heparin Sodium/ Sodium Chloride (HEPARIN for ARTERIAL LINE FLUSH) 1,000 unit 1X ONCE IART Last administered on 12/01/18at 10:42; Start 12/01/18 at 10:45; Stop 12/01/18 at 10:46; Status DC Info (CONTRAST GIVEN -- Rx MONITORING) 1 each PRN DAILY PRN MC SEE COMMENTS; Start 12/01/18 at 10:45; Stop 12/03/18 at 10:44 Iodixanol (Visipaque 320) 100 ml 1X ONCE IART Last administered on 12/01/18at 10:43; Start 12/01/18 at 10:45; Stop 12/01/18 at 10:46; Status DC Iodixanol (Visipaque 320) 100 ml STK-MED ONCE .ROUTE ; Start 12/01/18 at 10:06; Stop 12/01/18 at 10:07; Status DC Lidocaine HCl (Lidocaine 1% 20ml Vial) 20 ml 1X ONCE INJ Last administered on 12/01/18at 10:42; Start 12/01/18 at 10:45; Stop 12/01/18 at 10:46; Status DC Lidocaine HCl (Lidocaine 1% 20ml Vial) 20 ml STK-MED ONCE .ROUTE ; Start 12/01/18 at 10:20; Stop 12/01/18 at 10:21; Status DC Lidocaine HCl (Xylocaine-Mpf 1% 2ml Vial) 2 ml STK-MED ONCE .ROUTE ; Start 12/01/18 at 10:06; Stop 12/01/18 at 10:07; Status DC Midazolam HCl (Versed) 2 mg 1X ONCE IV Last administered on 12/01/18at 10:42; Start 12/01/18 at 10:45; Stop 12/01/18 at 10:46; Status DC Midazolam HCl (Versed) 2 mg STK-MED ONCE .ROUTE ; Start 12/01/18 at 10:05; Stop 12/01/18 at 10:06; Status DC Nitroglycerin (Nitroglycerin) 200 mcg STK-MED ONCE .ROUTE ; Start 12/01/18 at 10:05; Stop 12/01/18 at 10:06; Status DC Verapamil HCl (Verapamil) 5 mg STK-MED ONCE .ROUTE ; Start 12/01/18 at 10:05; Stop 12/01/18 at 10:06; Status DC Comment Review of Relevant I have reviewed the following items reshma (where applicable) has been applied. DENISE REYES MD December 01, 2018 16:12
[2018-12-01] MEDS: ATORVASTATIN CALCIUM 20 MG TABLET PO SCH (20:50)
[2018-12-02 03:25] VITALS: BP 125/87
[2018-12-02 06:35] LABS: PROTHROMBIN TIME PATIENT 15.7 SEC (11.7-14.0)
[2018-12-02 07:00] VITALS: BP 134/102
[2018-12-02] MEDS: ASPIRIN ENTERIC COATED 81 MG TABLET.DR. PO SCH (07:43)
[2018-12-02] MEDS: CARVEDILOL 3.125 MG TABLET. PO SCH (07:43)
--- NOTE | 2018-12-02 09:53 | PDOC ---
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 FU with PCP. [facility] showed no occlusive dz counseled on lifestyle modifications as needed lasix. dispo: optimize medical therapy. needs outpatient follow up with cards 1. Acute on chronic systolic and diastolic HF, LVEDP 31 mm Hg 2. Normal angiographic appearance of the coronary arteries. POOR PROGNOSIS PER MY CHART REVIEW due to substance abuse d/w mother in room 37 min pt exa, chart review, > 50% of time spent with exam, chart review, pt care coordination History of Present Illness History of Present Illness sob last night. for cath today. Vitals Vitals Vital Signs Date Time Temp Pulse Resp B/P (MAP) Pulse Ox O2 Delivery O2 Flow Rate FiO2 12/02/18 08:00 Room Air 12/02/18 07:43 106 134/102 12/02/18 03:25 98.2 16 90 98.2 Physical Exam General: Alert, Oriented X3, Cooperative, No acute distress Heart: Regular rate (SR/ST), Normal S1, Other (S3 diatolic murmur 3/6 loudest at erbs) Lungs: Clear Abdomen: Normal bowel sounds, Soft Extremities: No cyanosis, No edema Skin: No breakdown, No significant lesion Labs LABS CONTRAST: 41 [facility], Coronary angiography HISTORY The patient is a 23 year-old male with a history of : previous CHF. INDICATION The indication(s) include : dyspnea, valvular heart disease. [facility] Clinical Frailty Scale [facility] Clinical Frailty Scale: Vulnerable Heart Failure Heart Failure: Yes If Yes, Newly Diagnosed: Yes If Yes, HF Type: Diastolic Systolic If Yes, NYHA Class: Class III PROCEDURE NARRATIVE After explaining the risks and benefits of the procedure and alternatives, informed consent was obtained. The patient was brought electively to the cardiac catheterization lab in a fasting state. A timeout was performed confirming the patient's name, date of , procedure, and site of procedure. All necessary personnel were wearing the appropriate protective equipment and radiation monitor devices. (See nursing notes for medications administered). The right groin was sterilely prepped and draped in the usual fashion. The right groin w as infiltrated with 10 mL of 2% lidocaine for subcutaneous anesthesia. A 6 F sheath was inserted into the right femoral artery without difficulty. Right and left coronary angiography was performed using a JR4 and JL4 catheter. Left ventricular end diastolic pressure was obtained with a pigtail catheter and pullback was performed. All catheter exchanges and advancements were performed over a guidewire. At case completion the right femoral sheath was removed and hemostasis was achieved with an Angioseal Device after limited femoral angiography confirmed adequate vessel size and anatomy. There were no acute complications. HEMODYNAMICS: AO: 120/80 LVEDP 31 mm Hg No gradient on LV to aortic pullback. LEFT VENTRICULOGRAM: Deferred due to known LV dysfunction and moderate to severe MR. CORONARY ANGIOGRAPHY: LM is a large caliber vessel with normal angiographic appearance. LAD is a large caliber vessel with normal angiographic appearance. Ramus is a large caliber vessel with normal angiographic appearance. LCx is a small caliber non-dominant vessel with normal angiographic appearance. RCA is a moderate caliber dominant vessel with normal angiographic appearance. RPDA is a small caliber vessel with normal angiographic appearance. Conclusion 1. Acute on chronic systolic and diastolic HF, LVEDP 31 mm Hg 2. Normal angiographic appearance of the coronary arteries. Recommendations Aggressive Medical Therapy Signed by : Amador Mitchell, Electronically Approved : 12/01/2018 10:58:50 DICTATED and SIGNED BY: AMADOR MITCHELL MD DATE: 12/01/18 1058 MTH0 0 [id number] CC: ALDEN PATEL MD; DULCE ESPINOSA APRN; AMADOR MITCHELL MD; NO PCP ~ Page of Laboratory Tests Test 12/01/18 10:50 12/02/18 05:00 White Blood Count 10.1 x10^3/uL (4.0-11.0) Red Blood Count 4.86 x10^6/uL (4.30-5.70) Hemoglobin 14.2 g/dL (13.0-17.5) Hematocrit 42.9 % (39.0-53.0) Mean Corpuscular Volume 88 fL (79-100) Mean Corpuscular Hemoglobin 29 pg (25-35) Mean Corpuscular Hemoglobin Concent 33 g/dL (31-37) Red Cell Distribution Width 12.7 % (11.5-14.5) Platelet Count 354 x10^3/uL (140-400) Prothrombin Time 15.4 SEC (11.7-14.0) 15.7 SEC (11.7-14.0) Prothromb Time International Ratio 1.3 (0.8-1.1) 1.3 (0.8-1.1) Sodium Level 141 mmol/L (136-145) Potassium Level 3.7 mmol/L (3.5-5.1) Chloride Level 105 mmol/L (98-107) Carbon Dioxide Level 23 mmol/L (21-32) Anion Gap 13 (6-14) Blood Urea Nitrogen 8 mg/dL (8-26) Creatinine 1.2 mg/dL (0.7-1.3) Estimated GFR (Cockcroft-Gault) 89.3 Glucose Level 103 mg/dL (70-99) Calcium Level 8.8 mg/dL (8.5-10.1) Assessment and Plan Assessmemt and Plan Problems Medical Problems: (1) Dizziness Status: Acute (2) Non-ST elevation VA (NSTEMI) Status: Acute Comment Review of Relevant I have reviewed the following items reshma (where applicable) has been applied. Labs Laboratory Tests Test 12/01/18 10:50 12/02/18 05:00 White Blood Count 10.1 x10^3/uL (4.0-11.0) Red Blood Count 4.86 x10^6/uL (4.30-5.70) Hemoglobin 14.2 g/dL (13.0-17.5) Hematocrit 42.9 % (39.0-53.0) Mean Corpuscular Volume 88 fL (79-100) Mean Corpuscular Hemoglobin 29 pg (25-35) Mean Corpuscular Hemoglobin Concent 33 g/dL (31-37) Red Cell Distribution Width 12.7 % (11.5-14.5) Platelet Count 354 x10^3/uL (140-400) Prothrombin Time 15.4 SEC (11.7-14.0) 15.7 SEC (11.7-14.0) Prothromb Time International Ratio 1.3 (0.8-1.1) 1.3 (0.8-1.1) Sodium Level 141 mmol/L (136-145) Potassium Level 3.7 mmol/L (3.5-5.1) Chloride Level 105 mmol/L (98-107) Carbon Dioxide Level 23 mmol/L (21-32) Anion Gap 13 (6-14) Blood Urea Nitrogen 8 mg/dL (8-26) Creatinine 1.2 mg/dL (0.7-1.3) Estimated GFR (Cockcroft-Gault) 89.3 Glucose Level 103 mg/dL (70-99) Calcium Level 8.8 mg/dL (8.5-10.1) Laboratory Tests Test 12/01/18 10:50 12/02/18 05:00 White Blood Count 10.1 x10^3/uL (4.0-11.0) Red Blood Count 4.86 x10^6/uL (4.30-5.70) Hemoglobin 14.2 g/dL (13.0-17.5) Hematocrit 42.9 % (39.0-53.0) Mean Corpuscular Volume 88 fL (79-100) Mean Corpuscular Hemoglobin 29 pg (25-35) Mean Corpuscular Hemoglobin Concent 33 g/dL (31-37) Red Cell Distribution Width 12.7 % (11.5-14.5) Platelet Count 354 x10^3/uL (140-400) Prothrombin Time 15.4 SEC (11.7-14.0) 15.7 SEC (11.7-14.0) Prothromb Time International Ratio 1.3 (0.8-1.1) 1.3 (0.8-1.1) Sodium Level 141 mmol/L (136-145) Potassium Level 3.7 mmol/L (3.5-5.1) Chloride Level 105 mmol/L (98-107) Carbon Dioxide Level 23 mmol/L (21-32) Anion Gap 13 (6-14) Blood Urea Nitrogen 8 mg/dL (8-26) Creatinine 1.2 mg/dL (0.7-1.3) Estimated GFR (Cockcroft-Gault) 89.3 Glucose Level 103 mg/dL (70-99) Calcium Level 8.8 mg/dL (8.5-10.1) Medications Current Medications Meclizine HCl (Antivert) 25 mg 1X ONCE PO Last administered on 11/29/18at 13:39; Start 11/29/18 at 13:00; Stop 11/29/18 at 13:01; Status DC Sodium Chloride 1,000 ml @ 1,000 mls/hr 1X ONCE IV Last administered on 11/29/18at 13:36; Start 11/29/18 at 13:00; Stop 11/29/18 at 13:59; Status DC Ondansetron HCl (Zofran) 4 mg 1X ONCE IV Last administered on 11/29/18at 13:38; Start 11/29/18 at 13:00; Stop 11/29/18 at 13:01; Status DC Aspirin (Ana Aspirin) 325 mg 1X ONCE PO Last administered on 11/29/18at 14:21; Start 11/29/18 at 14:15; Stop 11/29/18 at 14:16; Status DC Iohexol (Omnipaque 350 Mg/ml) 100 ml 1X ONCE IV Last administered on 11/29/18at 14:30; Start 11/29/18 at 14:30; Stop 11/29/18 at 14:31; Status DC Info (CONTRAST GIVEN -- Rx MONITORING) 1 each PRN DAILY PRN MC SEE COMMENTS; Start 11/29/18 at 14:30; Stop 12/01/18 at 14:29; Status DC Magnesium Sulfate/ Dextrose 100 ml @ 100 mls/hr 1X ONCE IV Last administered on 11/29/18at 15:31; Start 11/29/18 at 15:15; Stop 11/29/18 at 16:14; Status DC Labetalol HCl (Normodyne Iv Push) 20 mg PRN Q2HR PRN IVP ELEVATED BP, SEE COMMENTS; Start 11/29/18 at 15:30 Ondansetron HCl (Zofran) 4 mg PRN Q8HRS PRN IV NAUSEA/VOMITING; Start 11/29/18 at 16:15; Stop 11/30/18 at 16:14; Status DC Acetaminophen (Tylenol) 650 mg PRN Q4HRS PRN PO FEVER Last administered on 11/29/18at 21:46; Start 11/29/18 at 16:15; Stop 11/30/18 at 16:14; Status DC Nitroglycerin (Nitrostat) 0.4 mg PRN Q5MIN PRN SL CHEST PAIN; Start 11/29/18 at 16:15; Stop 11/30/18 at 16:14; Status DC Sodium Chloride 1,000 ml @ 100 mls/hr 1X ONCE IV Last administered on 11/29/18at 18:43; Start 11/29/18 at 17:15; Stop 11/30/18 at 03:14; Status DC Atorvastatin Calcium (Lipitor) 20 mg QHS PO Last administered on 12/01/18at 20:50; Start 11/29/18 at 21:00 Furosemide (Lasix) 20 mg 1X ONCE IVP Last administered on 11/30/18at 11:32; Start 11/30/18 at 10:00; Stop 11/30/18 at 10:01; Status DC Carvedilol (Coreg) 3.125 mg BIDWMEALS PO Last administered on 12/02/18at 07:43; Start 11/30/18 at 11:00 Enoxaparin Sodium (Lovenox 120mg Syringe) 110 mg Q12HR SQ Last administered on 11/30/18at 21:25; Start 11/30/18 at 10:00; Stop 11/30/18 at 23:00; Status DC Aspirin (Ecotrin) 81 mg DAILYWBKFT PO Last administered on 12/02/18at 07:43; Start 11/30/18 at 10:00 Fentanyl Citrate (Fentanyl 2ml Vial) 100 mcg STK-MED ONCE .ROUTE ; Start 12/01/18 at 10:05; Stop 12/01/18 at 10:06; Status DC Midazolam HCl (Versed) 2 mg STK-MED ONCE .ROUTE ; Start 12/01/18 at 10:05; Stop 12/01/18 at 10:06; Status DC Heparin Sodium (Porcine) (Heparin Sodium) 10,000 unit STK-MED ONCE .ROUTE ; Start 12/01/18 at 10:05; Stop 12/01/18 at 10:06; Status DC Verapamil HCl (Verapamil) 5 mg STK-MED ONCE .ROUTE ; Start 12/01/18 at 10:05; Stop 12/01/18 at 10:06; Status DC Nitroglycerin (Nitroglycerin) 200 mcg STK-MED ONCE .ROUTE ; Start 12/01/18 at 10:05; Stop 12/01/18 at 10:06; Status DC Iodixanol (Visipaque 320) 100 ml STK-MED ONCE .ROUTE ; Start 12/01/18 at 10:06; Stop 12/01/18 at 10:07; Status DC Lidocaine HCl (Xylocaine-Mpf 1% 2ml Vial) 2 ml STK-MED ONCE .ROUTE ; Start 12/01/18 at 10:06; Stop 12/01/18 at 10:07; Status DC Heparin Sodium/ Sodium Chloride 1,000 ml @ As Directed STK-MED ONCE .ROUTE ; Start 12/01/18 at 10:06; Stop 12/01/18 at 10:07; Status DC Lidocaine HCl (Lidocaine 1% 20ml Vial) 20 ml STK-MED ONCE .ROUTE ; Start 12/01 at 10:20; Stop 12/01/18 at 10:21; Status DC Heparin Sodium/ Sodium Chloride (HEPARIN for ARTERIAL LINE FLUSH) 1,000 unit 1X ONCE IART Last administered on 12/01/18at 10:42; Start 12/01/18 at 10:45; Stop 12/01/18 at 10:46; Status DC Midazolam HCl (Versed) 2 mg 1X ONCE IV Last administered on 12/01/18at 10:42; Start 12/01/18 at 10:45; Stop 12/01/18 at 10:46; Status DC Fentanyl Citrate (Fentanyl 2ml Vial) 100 mcg 1X ONCE IV Last administered on 12/01/18at 10:42; Start 12/01/18 at 10:45; Stop 12/01/18 at 10:46; Status DC Iodixanol (Visipaque 320) 100 ml 1X ONCE IART Last administered on 12/01/18at 10:43; Start 12/01/18 at 10:45; Stop 12/01/18 at 10:46; Status DC Lidocaine HCl (Lidocaine 1% 20ml Vial) 20 ml 1X ONCE INJ Last administered on 12/01/18at 10:42; Start 12/01/18 at 10:45; Stop 12/01/18 at 10:46; Status DC Info (CONTRAST GIVEN -- Rx MONITORING) 1 each PRN DAILY PRN MC SEE COMMENTS; Start 12/01/18 at 10:45; Stop 12/03/18 at 10:44 Verapamil HCl (Verapamil) 5 mg STK-MED ONCE .ROUTE ; Start 12/01/18 at 10:00; Stop 12/02/18 at 08:48; Status DC Vitals/I & O Vital Sign - Last 24 Hours 12/01/18 12/01/18 12/01/18 12/01/18 10:42 10:47 11:00 11:00 Temp 98.0 98.0 Pulse 107 112 107 Resp 18 16 18 B/P (MAP) 119/69 (86) 119/69 (86) Pulse Ox 94 95 O2 Delivery Room Air Room Air 12/01/18 12/01/18 12/01/18 12/01/18 11:12 11:15 11:30 11:45 Pulse 110 110 98 B/P (MAP) 119/84 (96) 128/86 (100) 105/71 (82) Pulse Ox 94 97 96 O2 Delivery Room Air 12/01/18 12/01/18 12/01/18 12/01/18 12:00 12:00 12:15 12:30 Pulse 112 104 110 107 B/P (MAP) 122/70 (87) 122/70 (87) 119/71 (87) 107/73 (84) Pulse Ox 95 95 96 92 12/01/18 12/01/18 12/01/18 12/01/18 12:45 13:00 13:15 13:45 Pulse 104 102 108 102 B/P (MAP) 125/77 (93) 125/72 (89) 123/71 (88) 112/71 (85) Pulse Ox 90 90 89 93 12/01/18 12/01/18 12/01/18 12/01/18 14:15 14:45 15:00 18:14 Temp 98.0 98.0 Pulse 96 104 114 109 Resp 18 B/P (MAP) 110/87 (95) 105/58 (74) 105/58 (74) Pulse Ox 92 96 O2 Delivery Room Air 12/01/18 12/01/18 12/01/18 12/02/18 19:26 20:00 23:30 03:25 Temp 98.0 98.3 98.2 98.0 98.3 98.2 Pulse 112 113 111 Resp 16 16 16 B/P (MAP) 121/90 (100) 131/86 (101) 125/87 (100) Pulse Ox 92 92 90 O2 Delivery Room Air Room Air Room Air Room Air 12/02/18 12/02/18 07:43 08:00 Pulse 106 B/P (MAP) 134/102 O2 Delivery Room Air Intake and Output 12/01/18 12/01/18 12/02/18 14:59 22:59 06:59 Intake Total 200 ml Output Total 1200 ml 500 ml Balance -1200 ml -300 ml ALDEN PATEL MD December 02, 2018 09:52
[2018-12-02 11:00] VITALS: BP 104/56
--- NOTE | 2018-12-02 12:31 | PDOC3 ---
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 FU with PCP. [facility] showed no occlusive dz counseled on lifestyle modifications as needed lasix. dispo: optimize medical therapy. needs outpatient follow up with cards 1. Acute on chronic systolic and diastolic HF, LVEDP 31 mm Hg 2. Normal angiographic appearance of the coronary arteries. POOR PROGNOSIS PER MY CHART REVIEW due to substance abuse d/w mother in room 37 min pt exa, chart review, > 50% of time spent with exam, chart review, pt care coordination History of Present Illness History of Present Illness feels well Vitals Vitals Vital Signs Date Time Temp Pulse Resp B/P (MAP) Pulse Ox O2 Delivery O2 Flow Rate FiO2 12/02/18 08:00 Room Air 12/02/18 07:43 106 134/102 12/02/18 03:25 98.2 16 90 98.2 Physical Exam General: Alert, Oriented X3, Cooperative, No acute distress Heart: Regular rate (SR/ST), Normal S1, Other (S3 diatolic murmur 3/6 loudest at erbs) Lungs: Clear Abdomen: Normal bowel sounds, Soft Extremities: No cyanosis, No edema Skin: No breakdown, No significant lesion Labs LABS CONTRAST: 41 [facility], Coronary angiography HISTORY The patient is a 23 year-old male with a history of : previous CHF. INDICATION The indication(s) include : dyspnea, valvular heart disease. [facility] Clinical Frailty Scale [facility] Clinical Frailty Scale: Vulnerable Heart Failure Heart Failure: Yes If Yes, Newly Diagnosed: Yes If Yes, HF Type: Diastolic Systolic If Yes, NYHA Class: Class III PROCEDURE NARRATIVE After explaining the risks and benefits of the procedure and alternatives, informed consent was obtained. The patient was brought electively to the cardiac catheterization lab in a fasting state. A timeout was performed confirming the patient's name, date of , procedure, and site of procedure. All necessary personnel were wearing the appropriate protective equipment and radiation monitor devices. (See nursing notes for medications administered). The right groin was sterilely prepped and draped in the usual fashion. The right groin was infiltrated with 10 mL of 2% lidocaine for subcutaneous anesthesia. A 6 F sheath was inserted into the right femoral artery without difficulty. Right and left coronary angiography was performed using a JR4 and JL4 catheter. Left ventricular end diastolic pressure was obtained with a pigtail catheter and pullback was performed. All catheter exchanges and advancements were performed over a guidewire. At case completion the right femoral sheath was removed and hemostasis was achieved with an Angioseal Device after limited femoral angiography confirmed adequate vessel size and anatomy. There were no acute complications. HEMODYNAMICS: AO: 120/80 LVEDP 31 mm Hg No gradient on LV to aortic pullback. LEFT VENTRICULOGRAM: Deferred due to known LV dysfunction and moderate to severe MR. CORONARY ANGIOGRAPHY: LM is a large caliber vessel with normal angiographic appearance. LAD is a large caliber vessel with normal angiographic appearance. Ramus is a large caliber vessel with normal angiographic appearance. LCx is a small caliber non-dominant vessel with normal angiographic appearance. RCA is a moderate caliber dominant vessel with normal angiographic appearance. RPDA is a small caliber vessel with normal angiographic appearance. Conclusion 1. Acute on chronic systolic and diastolic HF, LVEDP 31 mm Hg 2. Normal angiographic appearance of the coronary arteries. Recommendations Aggressive Medical Therapy Signed by : Amador Mitchell, Electronically Approved : 12/01/2018 10:58:50 DICTATED and SIGNED BY: AMADOR MITCHELL MD DATE: 12/01/18 1058 MTH0 0 FINAL DIAGNOSIS Problems Medical Problems: (1) Dizziness Status: Acute (2) Non-ST elevation [place] (NSTEMI) Status: Acute Brief Hospital Course Mr. Vernon is a 23 old [sex] who presented with [ ] Discharge Medications Current Medications Meclizine HCl (Antivert) 25 mg 1X ONCE PO Last administered on 11/29/18at 13:39; Start 11/29/18 at 13:00; Stop 11/29/18 at 13:01; Status DC Sodium Chloride 1,000 ml @ 1,000 mls/hr 1X ONCE IV Last administered on 11/29/18at 13:36; Start 11/29/18 at 13:00; Stop 11/29/18 at 13:59; Status DC Ondansetron HCl (Zofran) 4 mg 1X ONCE IV Last administered on 11/29/18at 13:38; Start 11/29/18 at 13:00; Stop 11/29/18 at 13:01; Status DC Aspirin (Ana Aspirin) 325 mg 1X ONCE PO Last administered on 11/29/18at 14:21; Start 11/29/18 at 14:15; Stop 11/29/18 at 14:16; Status DC Iohexol (Omnipaque 350 Mg/ml) 100 ml 1X ONCE IV Last administered on 11/29/18at 14:30; Start 11/29/18 at 14:30; Stop 11/29/18 at 14:31; Status DC Info (CONTRAST GIVEN -- Rx MONITORING) 1 each PRN DAILY PRN MC SEE COMMENTS; Start 11/29/18 at 14:30; Stop 12/01/18 at 14:29; Status DC Magnesium Sulfate/ Dextrose 100 ml @ 100 mls/hr 1X ONCE IV Last administered on 11/29/18at 15:31; Start 11/29/18 at 15:15; Stop 11/29/18 at 16:14; Status DC Labetalol HCl (Normodyne Iv Push) 20 mg PRN Q2HR PRN IVP ELEVATED BP, SEE COMMENTS; Start 11/29/18 at 15:30 Ondansetron HCl (Zofran) 4 mg PRN Q8HRS PRN IV NAUSEA/VOMITING; Start 11/29/18 at 16:15; Stop 11/30/18 at 16:14; Status DC Acetaminophen (Tylenol) 650 mg PRN Q4HRS PRN PO FEVER Last administered on 11/29/18at 21:46; Start 11/29/18 at 16:15; Stop 11/30/18 at 16:14; Status DC Nitroglycerin (Nitrostat) 0.4 mg PRN Q5MIN PRN SL CHEST PAIN; Start 11/29/18 at 16:15; Stop 11/30/18 at 16:14; Status DC Sodium Chloride 1,000 ml @ 100 mls/hr 1X ONCE IV Last administered on 11/29/18at 18:43; Start 11/29/18 at 17:15; Stop 11/30/18 at 03:14; Status DC Atorvastatin Calcium (Lipitor) 20 mg QHS PO Last administered on 12/01/18at 20:50; Start 11/29/18 at 21:00 Furosemide (Lasix) 20 mg 1X ONCE IVP Last administered on 11/30/18at 11:32; Start 11/30/18 at 10:00; Stop 11/30/18 at 10:01; Status DC Carvedilol (Coreg) 3.125 mg BIDWMEALS PO Last administered on 12/02/18at 07:43; Start 11/30/18 at 11:00 Enoxaparin Sodium (Lovenox 120mg Syringe) 110 mg Q12HR SQ Last administered on 11/30/18at 21:25; Start 11/30/18 at 10:00; Stop 11/30/18 at 23:00; Status DC Aspirin (Ecotrin) 81 mg DAILYWBKFT PO Last administered on 12/02/18at 07:43; Start 11/30/18 at 10:00 Fentanyl Citrate (Fentanyl 2ml Vial) 100 mcg STK-MED ONCE .ROUTE ; Start at 10:05; Stop 12/01/18 at 10:06; Status DC Midazolam HCl (Versed) 2 mg STK-MED ONCE .ROUTE ; Start 12/01/18 at 10:05; Stop 12/01/18 at 10:06; Status DC Heparin Sodium (Porcine) (Heparin Sodium) 10,000 unit STK-MED ONCE .ROUTE ; Start 12/01/18 at 10:05; Stop 12/01/18 at 10:06; Status DC Verapamil HCl (Verapamil) 5 mg STK-MED ONCE .ROUTE ; Start 12/01/18 at 10:05; Stop 12/01/18 at 10:06; Status DC Nitroglycerin (Nitroglycerin) 200 mcg STK-MED ONCE .ROUTE ; Start 12/01/18 at 10:05; Stop 12/01/18 at 10:06; Status DC Iodixanol (Visipaque 320) 100 ml STK-MED ONCE .ROUTE ; Start 12/01/18 at 10:06; Stop 12/01/18 at 10:07; Status DC Lidocaine HCl (Xylocaine-Mpf 1% 2ml Vial) 2 ml STK-MED ONCE .ROUTE ; Start 12/01/18 at 10:06; Stop 12/01/18 at 10:07; Status DC Heparin Sodium/ Sodium Chloride 1,000 ml @ As Directed STK-MED ONCE .ROUTE ; Start 12/01/18 at 10:06; Stop 12/01/18 at 10:07; Status DC Lidocaine HCl (Lidocaine 1% 20ml Vial) 20 ml STK-MED ONCE .ROUTE ; Start 12/01/18 at 10:20; Stop 12/01/18 at 10:21; Status DC Heparin Sodium/ Sodium Chloride (HEPARIN for ARTERIAL LINE FLUSH) 1,000 unit 1X ONCE IART Last administered on 12/01/18at 10:42; Start 12/01/18 at 10:45; Stop 12/01/18 at 10:46; Status DC Midazolam HCl (Versed) 2 mg 1X ONCE IV Last administered on 12/01/18at 10:42; Start 12/01/18 at 10:45; Stop 12/01/18 at 10:46; Status DC Fentanyl Citrate (Fentanyl 2ml Vial) 100 mcg 1X ONCE IV Last administered on 12/01/18at 10:42; Start 12/01/18 at 10:45; Stop 12/01/18 at 10:46; Status DC Iodixanol (Visipaque 320) 100 ml 1X ONCE IART Last administered on 12/01/18at 10:43; Start 12/01/18 at 10:45; Stop 12/01/18 at 10:46; Status DC Lidocaine HCl (Lidocaine 1% 20ml Vial) 20 ml 1X ONCE INJ Last administered on 12/01/18at 10:42; Start 12/01/18 at 10:45; Stop 12/01/18 at 10:46; Status DC Info (CONTRAST GIVEN -- Rx MONITORING) 1 each PRN DAILY PRN MC SEE COMMENTS; Start 12/01/18 at 10:45; Stop 12/03/18 at 10:44 Verapamil HCl (Verapamil) 5 mg STK-MED ONCE .ROUTE ; Start 12/01/18 at 10:00; Stop 12/02/18 at 08:48; Status DC Vital Signs Vital Signs Date Time Temp Pulse Resp B/P (MAP) Pulse Ox O2 Delivery O2 Flow Rate FiO2 12/02/18 08:00 Room Air 12/02/18 07:43 106 134/102 12/02/18 03:25 98.2 16 90 98.2 Labs Laboratory Tests Test 12/01/18 10:50 12/02/18 05:00 White Blood Count 10.1 x10^3/uL (4.0-11.0) Red Blood Count 4.86 x10^6/uL (4.30-5.70) Hemoglobin 14.2 g/dL (13.0-17.5) Hematocrit 42.9 % (39.0-53.0) Mean Corpuscular Volume 88 fL (79-100) Mean Corpuscular Hemoglobin 29 pg (25-35) Mean Corpuscular Hemoglobin Concent 33 g/dL (31-37) Red Cell Distribution Width 12.7 % (11.5-14.5) Platelet Count 354 x10^3/uL (140-400) Prothrombin Time 15.4 SEC (11.7-14.0) 15.7 SEC (11.7-14.0) Prothromb Time International Ratio 1.3 (0.8-1.1) 1.3 (0.8-1.1) Sodium Level 141 mmol/L (136-145) Potassium Level 3.7 mmol/L (3.5-5.1) Chloride Level 105 mmol/L (98-107) Carbon Dioxide Level 23 mmol/L (21-32) Anion Gap 13 (6-14) Blood Urea Nitrogen 8 mg/dL (8-26) Creatinine 1.2 mg/dL (0.7-1.3) Estimated GFR (Cockcroft-Gault) 89.3 Glucose Level 103 mg/dL (70-99) Calcium Level 8.8 mg/dL (8.5-10.1) Laboratory Tests Test 12/02/18 05:00 Prothrombin Time 15.7 SEC (11.7-14.0) Prothromb Time International Ratio 1.3 (0.8-1.1) Allergies Allergies Coded Allergies Type Severity Reaction Last Updated Verified pineapple Allergy Intermediate 11/30/18 Yes ALDEN PATEL MD December 02, 2018 12:31
[2018-12-02] MEDS ORDERED: ATOR20TA58 PO (12:32)
[2018-12-02] MEDS ORDERED: ASPI-612 PO (12:32)
[2018-12-02] MEDS ORDERED: CARV3.1210 PO (12:32)
--- NOTE | 2018-12-02 12:35 | DISCH ---
DISCHARGE INSTRUCTIONS Condition on Discharge Condition on Discharge: Guarded Activity After Discharge Activity Instructions for Disc: Activity as tolerated, Avoid exertion Lifting Instructions after Dis: No heavy lifting, No pulling or pushing Driving Instructions after Dis: Do not drive, Do not drive today Diet after Discharge Diet after Discharge: Cardiac Contacting the DRKeri after DC Call your doctor for: If your condition worsens Warfarin Follow-Up Warfarin Follow UP: no illicit drug use, see PCP ALDEN DUNLAP MD December 02, 2018 12:35
--- NOTE | 2018-12-02 14:08 | PDOC ---
PROGRESS NOTES Recommendation/Plan Recommendation/Plan Dizziness/light headiness. Cocaine positive. Marijuana positive. HLD. NSTEMI likely. CHF. Over weight. RECOMMENDATIONS/PLAN: Patient did nit want to take Statin and wanted to try diet first since lipids not very high. Patient education for illicit drug abstinence. FU with PCP. HISTORY OF THE PRESENT ILLNESS: This is a 23-y-old AA male patient who was admitted duo to dizziness and light headiness. Pt has not seen any doctor at least in the last 3 yrs. 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 Reports that in the last week he thought he had some al lergies and nonproductive cough with some wheezing. He stated that he got up to use the bathroom and felt dizzy with VILLAGOMEZ and mild SOA and weak on 11/29/18. He drinks about 1 can of Monster a day and smokes tobacco. No visual or auditory disturbances, nor focalized sensory or motor deficits. PAST MEDICAL HISTORY Has not seen PCP for several years. PAST SURGICAL HISTORY No major surgery recently. FAMILY HISTORY Heart Disease (mother) SOCIAL HISTORY Smoke: <1 pack per day ALCOHOL: From time to time. Drugs: Marijuana, Cocaine. Lives: with Family ALLERGY: NKDA MEDICATIONS: Refer to MAR REVIEW OF SYSTEMS: Constitutional: Obesity. Head: No traumatic brain or head injury. Skin: No edema, or rash. Ear: No infection. Eyes: No vision loss or color blindness. Nose: No bleeding or purulent discharges. Hearing: No hearing decrease. Neck: No injury. Cardiac: No UT, arrhythmia. Pulmonary: Smoking. GI: No GI ulcer, GI bleeding. Urinary/genital: No dysuria, incontinence, urinary retention. Endocrinologic: Obesity. Skeletomuscular: No muscular atrophy. Neurological: see HP. Psychiatric: Substance and drug use/abuse. Otherwise, not [id number] review of systems. PHYSICAL EXAMINATION: General appearance is in no acute distress. HEENT: Normocephalic and nontraumatic. Eyes, nose, ears, and throat are unremarkable. Neck is supple. No lymphadenopathy. No bruits are heard over the carotid artery. No crepitus. Cardiovascular: S1, S2, regular rate and rhythm. Pulmonary: Clear to auscultation bilaterally. Abdomen: Bowel sounds are positive. Abdomen is soft, nontender, and nondistended. Extremities: No rash, lesions, or edema. No restriction of range of motion NEUROLOGICAL EXAMINATION: Alert Oriented to time, place and person. PERRL. EOMI. CN: no focal findings. Muscle tone: within normal. Muscle strength: 5 DTR: 2 Plantar reflex: Flexor response bilaterally Gait: At baseline normal. Sensory exam: no abnormal findings. No cerebellar signs elicited. F-T-N test accurate. No pronator drift after 10 seconds. No leg drop after 10 seconds lifting. Objective Objective Vital Signs Date Time Temp Pulse Resp B/P (MAP) Pulse Ox O2 Delivery O2 Flow Rate FiO2 12/02/18 11:00 98.1 105 17 104/56 (72) 99 Room Air 98.1 Intake and Output 12/02/18 07:00 Intake Total 200 ml Output Total 1700 ml Balance -1500 ml Intake Oral 200 ml Output Urine Total 1700 ml Vitals Signs Vitals VS - Last 72 Hours, by Label Date Time Temp Pulse Resp B/P (MAP) Pulse Ox O2 Delivery O2 Flow Rate FiO2 12/02/18 11:00 98.1 105 17 104/56 (72) 99 Room Air 98.1 12/02/18 08:00 Room Air 12/02/18 07:43 106 134/102 12/02/18 07:00 98.1 102 20 134/102 (113) 100 Room Air 98.1 12/02/18 03:25 98.2 111 16 125/87 (100) 90 Room Air 98.2 12/01/18 23:30 98.3 113 16 131/86 (101) 92 Room Air 98.3 12/01/18 20:00 Room Air 12/01/18 19:26 98.0 112 16 121/90 (100) 92 Room Air 98.0 12/01/18 18:14 109 12/01/18 15:00 98.0 114 18 105/58 (74) 96 Room Air 98.0 12/01/18 14:45 104 105/58 (74) 12/01/18 14:15 96 110/87 (95) 92 12/01/18 13:45 102 112/71 (85) 93 12/01/18 13:15 108 123/71 (88) 89 12/01/18 13:00 102 125/72 (89) 90 12/01/18 12:45 104 125/77 (93) 90 12/01/18 12:30 107 107/73 (84) 92 12/01/18 12:15 110 119/71 (87) 96 12/01/18 12:00 104 122/70 (87) 95 12/01/18 12:00 112 122/70 (87) 95 12/01/18 11:45 98 105/71 (82) 96 12/01/18 11:30 110 128/86 (100) 97 12/01/18 11:15 110 119/84 (96) 94 12/01/18 11:12 Room Air 12/01/18 11:00 107 119/69 (86) 12/01/18 11:00 98.0 112 18 119/69 (86) 95 Room Air 98.0 12/01/18 10:47 107 16 94 Room Air 12/01/18 10:42 18 12/01/18 09:19 114 12/01/18 08:00 Room Air 12/01/18 07:00 98.2 102 16 132/71 (91) 94 Room Air 98.2 Laboratory Laboratory Laboratory Tests Test 12/02/18 05:00 Prothrombin Time 15.7 SEC (11.7-14.0) Prothromb Time International Ratio 1.3 (0.8-1.1) Comment Review of Relevant I have reviewed the following items reshma (where applicable) has been applied. DENISE REYES MD December 02, 2018 14:08
--- NOTE | 2018-12-02 14:22 | NUR ---
Patient discharged home self care. Dr. Laguerre wanted patient to have Life Vest, ER registration tried for the third time to run insurance cards, but says they are inactive. Patient cannot have life vest without and Dr. Laguerre is aware of this. RN stressed for patient to follow up with Dr. Laguerre in two weeks by calling number on discharge paperwork. Post cath handout and teaching given. Teaching on refraining from cocaine use also involved in discharge. New prescriptions given as well as teaching. Patient alert and stable. IV discontinued. Tele removed. Patient accompanied by HARNESS BRUSHER to sister's car.
== END 2018-12-02 14:30 | disposition home or self-care (01) | DRG 917 ==
LOC: ER 12:39 → 2 NORTH 15:00
PROVIDERS: ADMIT Family Medicine; ATTEND Family Medicine
PROC: 4A023N7 Measurement of Cardiac Sampling and Pressure, Left Heart, Percutaneous Approach (ICD-10-PCS; principal; 2018-12-01)
PROC: B2111ZZ Fluoroscopy of Multiple Coronary Arteries using Low Osmolar Contrast (ICD-10-PCS; 2018-12-01)
DX: T40.5X1A Poisoning by cocaine, accidental (unintentional), initial encounter (principal); I21.4 Non-ST elevation (NSTEMI) myocardial infarction; I50.43 Acute on chronic combined systolic (congestive) and diastolic (congestive) heart failure; I42.7 Cardiomyopathy due to drug and external agent; I20.1 Angina pectoris with documented spasm; I11.0 Hypertensive heart disease with heart failure; E66.9 Obesity, unspecified; F12.10 Cannabis abuse, uncomplicated; F14.10 Cocaine abuse, uncomplicated; E78.5 Hyperlipidemia, unspecified; I34.0 Nonrheumatic mitral (valve) insufficiency; F10.20 Alcohol dependence, uncomplicated; F17.210 Nicotine dependence, cigarettes, uncomplicated; F19.10 Other psychoactive substance abuse, uncomplicated; Y92.89 Other specified places as the place of occurrence of the external cause; Z82.49 Family history of ischemic heart disease and other diseases of the circulatory system; Z68.29 Body mass index [BMI] 29.0-29.9, adult; Z82.79 Family history of other congenital malformations, deformations and chromosomal abnormalities; Z91.018 Allergy to other foods
CPT/HCPCS: 93458; 99285; G0269; 36415; 70450; 71045; 71275; 80048; 80053; 80061; 80307; 81001; 83036; 83735; 83880; 84443; 84484; 85025; 85027; 85610; 93005; 93306; 96361; 96365; 96375; 99152; 99153; 99406; C1760; C1769; C1892; J1644; J1650; J1940; J2250; J2405; J3010; J3475; J7030; J8597; Q9967; C1771

== ENCOUNTER 2018-12-16 13:03 | Inpatient (IN) | payer SELFPAY ==
[~2018-12-16] VITALS: Ht 193 cm; Wt 111.2 kg
[~2018-12-16 13:03] MED LIST: ASPI-612 PO; ATOR20TA58 PO; CARV3.1210 PO
[2018-12-16 13:55] LABS: BASO # 0.1 x10^3/uL (0.0-0.2); BASO % 1 % (0-3); EOS # 0.1 x10^3/uL (0.0-0.7); EOS % 1 % (0-3); HEMATOCRIT 41.4 % (39.0-53.0); HEMOGLOBIN 13.3 g/dL (13.0-17.5); LYMPH # 3.4 x10^3/uL (1.0-4.8); LYMPH % 30 % (24-48); MEAN CORPUSCULAR HEMOGLOBIN 29 pg (25-35); MEAN CORPUSCULAR HGB CONC 32 g/dL (31-37); MEAN CORPUSCULAR VOLUME 89 fL (79-100); MONO # 1.3 x10^3/uL (0.0-1.1); MONO % 11 % (0-9); NEUT # 6.3 x10^3uL (1.8-7.7); NEUT % 57 % (31-73); PLATELET COUNT 312 x10^3/uL (140-400); RED BLOOD COUNT 4.66 x10^6/uL (4.30-5.70); RED CELL DISTRIBUTION WIDTH 13.2 % (11.5-14.5); WHITE BLOOD COUNT 11.1 x10^3/uL (4.0-11.0)
[2018-12-16 14:07] LABS: CALCIUM 9.2 mg/dL (8.5-10.1); CREATININE 1.4 mg/dL (0.7-1.3); GFR 74.7; POTASSIUM 3.7 mmol/L (3.5-5.1)
[2018-12-16 14:12] LABS: ALBUMIN 3.1 g/dL (3.4-5.0); ALBUMIN/GLOBULIN RATIO 0.8 (1.0-1.7); TOTAL BILIRUBIN 0.7 mg/dL (0.2-1.0); TOTAL PROTEIN 6.9 g/dL (6.4-8.2)
--- NOTE | 2018-12-16 15:20 | RAD ---
MRI of the brain without contrast 12/16/2018 Clinical History: Increased headaches for last 2 days. Acute vision loss. Technique: Unenhanced T1-weighted sagittal and axial, T2-weighted axial and coronal and FLAIR, gradient echo and diffusion-weighted axial images of the brain were obtained. Findings: The ventricles are within normal limits in size and configuration.. A fairly large area of restricted diffusion is seen involving portions of the posterior right temporal lobe extending to involve the right occipital lobe. This measures 7.6 x 4.1 x 3.3 cm in AP, transverse and craniocaudal dimensions. There is mild surrounding edema and associated mass effect without evidence of midline shift. A smaller area of restricted diffusion is seen involving the medial aspect of the right parietal lobe. This measures 1 cm in greatest diameter. There is no significant surrounding edema or associated mass effect. These areas are consistent with areas of acute ischemia/infarction. No additional area of restricted diffusion is seen. No extra-axial fluid collection is noted. Normal flow voids are seen within the major vascular structures surrounding the brain parenchyma. Mild mucosal thickening in seen scattered throughout the paranasal sinuses. There are minimal bilateral mastoid effusions. IMPRESSION: A fairly large area of acute ischemia/infarction is seen involving portions of the posterior right temporal/occipital lobe. There is surrounding edema and associated mass effect without evidence of midline shift. A small area of acute ischemia/infarction is seen involving the right medial parietal lobe. These findings were discussed with Dr. Wolff of the emergency department. Electronically signed by: Jassi Hernandez MD (12/16/2018 3:17 PM) [id number]
[2018-12-16 15:31] LABS: PROTHROMBIN TIME PATIENT 16.2 SEC (11.7-14.0)
--- NOTE | 2018-12-16 15:36 | RAD ---
EXAM: CHEST 1 VIEW. HISTORY: Arrhythmia. COMPARISON: 11/29/2018. FINDINGS: A frontal view of the chest is obtained. There is an airspace opacity in the right lung base. There is no pneumothorax or pleural effusion. The heart is moderately enlarged. IMPRESSION: 1. Right basilar infiltrate suggesting pneumonia. 2. Moderate cardiomegaly. Electronically signed by: Phyllis Guajardo MD (12/16/2018 3:33 PM) [facility]
[2018-12-16] MEDS: ASPIRIN CHEWABLE 81 MG TABLET. PO SCH (15:40)
--- NOTE | 2018-12-16 15:41 | PHYS DOC ---
Past Medical History Past Medical History: CHF, Hypertension Past Surgical History: No Surgical History Alcohol Use: Sober Drug Use: None Adult General Chief Complaint Chief Complaint: VISION PROBLEM HPI HPI Patient is a 23 year old -Ivorian male with history of cardiomyopathy who presents with right upper and lower extremity loss of sensation 4 days ago and now resolved, left-sided visual field deficits accompanied with headache 2 days ago which persists. 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 Patient noted to have homonymous bilateral field deficits on the left side there was referred to the emergency department for further evaluation. On ED arrival, the patient's headache since resolved. Patient reports persistent left-sided visual deficits. MRI brain ordered. Patient noted to be hypertensive and tachycardic. Previously prescribed medications for cardiomyopathy but has unable to fill due to lack of prescription insurance coverage.[] Review of Systems Review of Systems Review symptoms as per history of present illness. All other systems were reviewed and found to be within normal limits, except as documented in this note. Current Medications Current Medications Current Medications Medications (Trade) Dose Ordered Sig/Carl Start Time Stop Time Status Last Admin Dose Admin Aspirin (Children'S Aspirin) 162 mg DAILYWBKFT 12/17/18 08:00 Allergies Allergies Allergies Coded Allergies Type Severity Reaction Last Updated Verified pineapple Allergy Intermediate 11/30/18 Yes Physical Exam Physical Exam Constitutional: Well developed, well nourished, no acute distress, non-toxic appearance. [] HENT: Normocephalic, atraumatic, bilateral external ears normal, oropharynx moist, no oral exudates, nose normal. [] Eyes: PERRLA, EOMI, conjunctiva normal, no discharge. [] Neck: Normal range of motion, no tenderness, supple, no stridor. [] Cardiovascular:Heart rate regular rhythm, no murmur [] Lungs & Thorax: Bilateral breath sounds clear to auscultation [] Abdomen: Bowel sounds normal, soft, no tenderness. [] Skin: Warm, dry, no erythema, no rash. [] Back: No tenderness, no CVA tenderness. [] Extremities: No tenderness, no cyanosis, no clubbing, ROM intact, no edema. [] Neurologic: Alert and oriented X 3, left-sided visual deficits on confrontational testing, cranial nerves II through XII otherwise intact, normal motor function, normal sensory function. NIH SS of 1 per ER nurse stoke assessment.. [] Psychologic: Affect normal, judgement normal, mood normal. [] Current Patient Data Vital Signs Vital Signs Date Time Temp Pulse Resp B/P (MAP) Pulse Ox O2 Delivery O2 Flow Rate FiO2 12/16/18 13:20 98.0 127 20 144/77 (99) 94 Room Air 98.0 Lab Values Laboratory Tests Test 12/16/18 13:45 White Blood Count 11.1 x10^3/uL (4.0-11.0) H Red Blood Count 4.66 x10^6/uL (4.30-5.70) Hemoglobin 13.3 g/dL (13.0-17.5) Hematocrit 41.4 % (39.0-53.0) Mean Corpuscular Volume 89 fL (79-100) Mean Corpuscular Hemoglobin 29 pg (25-35) Mean Corpuscular Hemoglobin Concent 32 g/dL (31-37) Red Cell Distribution Width 13.2 % (11.5-14.5) Platelet Count 312 x10^3/uL (140-400) Neutrophils (%) (Auto) 57 % (31-73) Lymphocytes (%) (Auto) 30 % (24-48) Monocytes (%) (Auto) 11 % (0-9) H Eosinophils (%) (Auto) 1 % (0-3) Basophils (%) (Auto) 1 % (0-3) Neutrophils # (Auto) 6.3 x10^3uL (1.8-7.7) Lymphocytes # (Auto) 3.4 x10^3/uL (1.0-4.8) Monocytes # (Auto) 1.3 x10^3/uL (0.0-1.1) H Eosinophils # (Auto) 0.1 x10^3/uL (0.0-0.7) Basophils # (Auto) 0.1 x10^3/uL (0.0-0.2) Sodium Level 137 mmol/L (136-145) Potassium Level 3.7 mmol/L (3.5-5.1) Chloride Level 101 mmol/L (98-107) Carbon Dioxide Level 22 mmol/L (21-32) Anion Gap 14 (6-14) Blood Urea Nitrogen 14 mg/dL (8-26) Creatinine 1.4 mg/dL (0.7-1.3) H Estimated GFR (Cockcroft-Gault) 74.7 BUN/Creatinine Ratio 10 (6-20) Glucose Level 116 mg/dL (70-99) H Calcium Level 9.2 mg/dL (8.5-10.1) Total Bilirubin 0.7 mg/dL (0.2-1.0) Aspartate Amino Transferase (AST) 36 U/L (15-37) Alanine Aminotransferase (ALT) 46 U/L (16-63) Alkaline Phosphatase 73 U/L (46-116) Total Protein 6.9 g/dL (6.4-8.2) Albumin 3.1 g/dL (3.4-5.0) L Albumin/Globulin Ratio 0.8 (1.0-1.7) L Laboratory Tests 12/16/18 13:45 Laboratory Tests 12/16/18 13:45 EKG EKG [EKG: Sinus tachycardia, rate 121.] Radiology/Procedures Radiology/Procedures [MR brain: Large area of acute ischemia/infarction seen involving portions of the posterior right temporal occipital lobe and surrounding edema and associated mass effect. A small area of acute ischemia/infarction is seen involving the right medial parietal lobe per radiology report.] Course & Med Decision Making Course & Med Decision Making Pertinent Labs and Imaging studies reviewed. (See chart for details) [Acute onset vision loss 2 days ago. MRI brain reveals large stroke involving posterior right temporal occipital lobe and small ischemic infarction involving right medial parietal lobe. Stroke score is 1, patient's symptom onset greater than 4.5 hours. Patient is not a candidate for TPA therapy. Case discussed with Dr. Arriola tong hooker for neurology who agrees to see in consult. Cardiology consult it for admission of cardiomyopathy and treatment of hypertension. to admit. ] Dragon Disclaimer Dragon Disclaimer This electronic medical record was generated, in whole or in part, using a voice recognition dictation system. Departure Departure Impression: Primary Impression: Ischemic stroke Additional Impression: Homonymous bilateral field defects of left side Disposition: ADMITTED INPATIENT Condition: STABLE Referrals: NO PCP (PCP) Problem Qualifiers PAULINA BARRIGA DO Dec 16, 2018 15:41
[2018-12-16] MEDS ORDERED: ACETAMINOPHEN 500 MG TABLET PO PRN (16:00)
[2018-12-16] MEDS ORDERED: cloNIDine HCL 0.1 MG TABLET PO PRN (16:00)
[2018-12-16] MEDS ORDERED: diphenhydrAMINE HCL 25 MG CAPSULE PO PRN (16:00)
--- NOTE | 2018-12-16 16:13 | EKG ---
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
--- NOTE | 2018-12-16 16:27 | PDOC1 ---
History and Physical Date of Admission Date of Admission DATE: 12/16/18 TIME: 16:19 Identification/Chief Complaint Chief Complaint Left-sided blurry vision Source Source: Caregiver, Chart review, Patient History of Present Illness History of Present Illness 23-year-old -English male diagnosed with nonischemic cardiomyopathy EF 25% recently discharged 12/02/2018- was admitted here for dizziness with CT head and CT angiol negative. Had a cardiac workup then including C which was clean. Cardiomyopathy attributed to may be idiopathic or cocaine induced and possibly hereditary. Mother hasn history of enlarged heart at [place] in because of left-sided peripheral vision loss. No hemiplegia, some tingling or numbness on the left side that was transient or started last admission but not now. MRI of the brain today shows huge large ischemic stroke on the right parieto-occipital area hence admitted - aspirin 182 has been given Blood pressure on the high side. He admits he has not been taking the si mvastatin and Core prescribed by cardiology because of financial constraints. He claims [facility] was asking for $400 out of pocket. Blood pressure high systolic 160s with a heart rate 120s at rest HE claims he has not been taking cocaine since his last admission/new diagnosis MRI: IMPRESSION: A fairly large area of acute ischemia/infarction is seen involving portions of the posterior right temporal/occipital lobe. There is surrounding edema and associated mass effect without evidence of midline shift. A small area of acute ischemia/infarction is seen involving the right medial parietal lobe. Past Medical History Cardiovascular: HTN, Other (severe nonischemic cardiomyopathy EF 25%) Past Surgical History Past Surgical History: No pertinent history Family History Family History: Heart Disease Social History Smoke: No ALCOHOL: occassional Drugs: Marijuana Current Problem List Problem List Problems Medical Problems: (1) Homonymous bilateral field defects of left side Status: Acute (2) Ischemic stroke Status: Acute Current Medications Current Medications Current Medications Aspirin (Children'S Aspirin) 162 mg DAILYWBKFT PO Last administered on 12/16/18at 15:40; Start 12/17/18 at 08:00 Atorvastatin Calcium (Lipitor) 20 mg QHS PO ; Start 12/16/18 at 21:00 Carvedilol (Coreg) 3.125 mg BIDWMEALS PO ; Start 12/16/18 at 17:00 Acetaminophen (Tylenol) 500 mg PRN Q6HRS PRN PO MILD PAIN / TEMP; Start 12/16/18 at 16:00 Acetaminophen/ Codeine Phosphate (Tylenol #3) 1 tab PRN Q6HRS PRN PO MODERATE - SEVERE PAIN; Start 12/16/18 at 16:00 Ondansetron HCl (Zofran) 4 mg PRN Q6HRS PRN IV NAUSEA/VOMITING; Start 12/16/18 at 16:00 Clonidine HCl (Catapres) 0.1 mg PRN Q1HR PRN PO HYPERTENSION; Start 12/16/18 at 16:00 Diphenhydramine HCl (Benadryl) 25 mg PRN QHS PRN PO INSOMNIA; Start 12/16/18 at 16:00 Active Scripts Active Aspirin Ec (Aspirin) 81 Mg Tablet.dr 81 Mg PO DAILYWBKFT 30 Days Carvedilol (Carvedilol) 3.125 Mg Tablet 3.125 Mg PO BIDWMEALS 30 Days Atorvastatin Calcium 20 Mg Tablet 20 Mg PO QHS 30 Days Allergies Allergies: Coded Allergies: pineapple (Verified Allergy, Intermediate, 11/30/18) ROS Review of System As per history of present illness, the rest of ROS 14 point negative-he denies any SOA or chest pain Physical Exam General: Alert, Oriented X3, Cooperative, No acute distress HEENT: Atraumatic, PERRLA, EOMI Lungs: Clear to auscultation, Normal air movement Heart: S1S2, RRR, no thrills, no rubs, no gallops, no murmurs Cardiovascular: S1, S2 Breasts: Normal, Rt breast nml w/o mass, Lt breast nml w/o mass, Nipples normal Abdomen: Normal bowel sounds, Soft, No tenderness, No hepatosplenomegaly, No masses Male Genitals Exam: normal genitalia, normal prostate Rectal Exam: not examined PELVIC: Nml ext genitalia Extremities: No clubbing, No cyanosis, No edema, Normal pulses, No tenderness/swelling Skin: No rashes, No breakdown, No significant lesion Neuro: Normal gait, Normal speech, Strength at 5/5 X4 ext, Normal tone, Sensation intact, Cranial nerves 3-12 NL, Reflexes 2+, Other (when he covers his left eye there is good vision, when he covers his right eye there is left-sided peripheral vision loss) Vitals Vitals Vital Signs Date Time Temp Pulse Resp B/P (MAP) Pulse Ox O2 Delivery O2 Flow Rate FiO2 12/16/18 13:20 98.0 127 20 144/77 (99) 94 Room Air 98.0 Labs Labs Laboratory Tests Test 12/16/18 13:45 White Blood Count 11.1 x10^3/uL (4.0-11.0) Red Blood Count 4.66 x10^6/uL (4.30-5.70) Hemoglobin 13.3 g/dL (13.0-17.5) Hematocrit 41.4 % (39.0-53.0) Mean Corpuscular Volume 89 fL (79-100) Mean Corpuscular Hemoglobin 29 pg (25-35) Mean Corpuscular Hemoglobin Concent 32 g/dL (31-37) Red Cell Distribution Width 13.2 % (11.5-14.5) Platelet Count 312 x10^3/uL (140-400) Neutrophils (%) (Auto) 57 % (31-73) Lymphocytes (%) (Auto) 30 % (24-48) Monocytes (%) (Auto) 11 % (0-9) Eosinophils (%) (Auto) 1 % (0-3) Basophils (%) (Auto) 1 % (0-3) Neutrophils # (Auto) 6.3 x10^3uL (1.8-7.7) Lymphocytes # (Auto) 3.4 x10^3/uL (1.0-4.8) Monocytes # (Auto) 1.3 x10^3/uL (0.0-1.1) Eosinophils # (Auto) 0.1 x10^3/uL (0.0-0.7) Basophils # (Auto) 0.1 x10^3/uL (0.0-0.2) Prothrombin Time 16.2 SEC (11.7-14.0) Prothromb Time International Ratio 1.3 (0.8-1.1) Activated Partial Thromboplast Time 28 SEC (24-38) Sodium Level 137 mmol/L (136-145) Potassium Level 3.7 mmol/L (3.5-5.1) Chloride Level 101 mmol/L (98-107) Carbon Dioxide Level 22 mmol/L (21-32) Anion Gap 14 (6-14) Blood Urea Nitrogen 14 mg/dL (8-26) Creatinine 1.4 mg/dL (0.7-1.3) Estimated GFR (Cockcroft-Gault) 74.7 BUN/Creatinine Ratio 10 (6-20) Glucose Level 116 mg/dL (70-99) Calcium Level 9.2 mg/dL (8.5-10.1) Total Bilirubin 0.7 mg/dL (0.2-1.0) Aspartate Amino Transf (AST/SGOT) 36 U/L (15-37) Alanine Aminotransferase (ALT/SGPT) 46 U/L (16-63) Alkaline Phosphatase 73 U/L (46-116) C-Reactive Protein, Quantitative 44.4 mg/L (0-3.3) Total Protein 6.9 g/dL (6.4-8.2) Albumin 3.1 g/dL (3.4-5.0) Albumin/Globulin Ratio 0.8 (1.0-1.7) Thyroid Stimulating Hormone (TSH) 2.858 uIU/mL (0.358-3.74) Laboratory Tests Test 12/16/18 13:45 White Blood Count 11.1 x10^3/uL (4.0-11.0) Red Blood Count 4.66 x10^6/uL (4.30-5.70) Hemoglobin 13.3 g/dL (13.0-17.5) Hematocrit 41.4 % (39.0-53.0) Mean Corpuscular Volume 89 fL (79-100) Mean Corpuscular Hemoglobin 29 pg (25-35) Mean Corpuscular Hemoglobin Concent 32 g/dL (31-37) Red Cell Distribution Width 13.2 % (11.5-14.5) Platelet Count 312 x10^3/uL (140-400) Neutrophils (%) (Auto) 57 % (31-73) Lymphocytes (%) (Auto) 30 % (24-48) Monocytes (%) (Auto) 11 % (0-9) Eosinophils (%) (Auto) 1 % (0-3) Basophils (%) (Auto) 1 % (0-3) Neutrophils # (Auto) 6.3 x10^3uL (1.8-7.7) Lymphocytes # (Auto) 3.4 x10^3/uL (1.0-4.8) Monocytes # (Auto) 1.3 x10^3/uL (0.0-1.1) Eosinophils # (Auto) 0.1 x10^3/uL (0.0-0.7) Basophils # (Auto) 0.1 x10^3/uL (0.0-0.2) Prothrombin Time 16.2 SEC (11.7-14.0) Prothromb Time International Ratio 1.3 (0.8-1.1) Activated Partial Thromboplast Time 28 SEC (24-38) Sodium Level 137 mmol/L (136-145) Potassium Level 3.7 mmol/L (3.5-5.1) Chloride Level 101 mmol/L (98-107) Carbon Dioxide Level 22 mmol/L (21-32) Anion Gap 14 (6-14) Blood Urea Nitrogen 14 mg/dL (8-26) Creatinine 1.4 mg/dL (0.7-1.3) Estimated GFR (Cockcroft-Gault) 74.7 BUN/Creatinine Ratio 10 (6-20) Glucose Level 116 mg/dL (70-99) Calcium Level 9.2 mg/dL (8.5-10.1) Total Bilirubin 0.7 mg/dL (0.2-1.0) Aspartate Amino Transf (AST/SGOT) 36 U/L (15-37) Alanine Aminotransferase (ALT/SGPT) 46 U/L (16-63) Alkaline Phosphatase 73 U/L (46-116) C-Reactive Protein, Quantitative 44.4 mg/L (0-3.3) Total Protein 6.9 g/dL (6.4-8.2) Albumin 3.1 g/dL (3.4-5.0) Albumin/Globulin Ratio 0.8 (1.0-1.7) Thyroid Stimulating Hormone (TSH) 2.858 uIU/mL (0.358-3.74) VTE Prophylaxis Ordered VTE Prophylaxis Devices: Yes VTE Pharmacological Prophylaxi: Yes Assessment/Plan Assessment/Plan Acute right CVA, posterior occipital temporal area with mild surrounding edema but no midline shift Severe nonischemic cardiomyopathy myopathy EF 25% with clean LHC November 2018 Sober from cocaine since the above diagnosis Positive family history of heart disease-mother Accelerated hypertension POA Sinus tachycardia PLAN: ASA 325 or 162 PO qD Consult-cardiology , neuro I reconciled home meds including simvastatin and Coreg He claims one of the meds cause $400-might benefit from metoprolol instead if this is cheaper than Coreg Ok for cardiac diet Lipid panel has already been done 11/28/18 Might need carotid ultrasound Echocardiogram already done recently 11/2018 Seen at ER Full code Labetolol or Vasotec when necessary I have reconciled simvastatin and Coreg seen at ER TORI LIZAMA MD Dec 16, 2018 16:27
--- NOTE | 2018-12-16 16:30 | PDOC2 ---
DULCE ESPINOSA COPY SUPERVISOR 12/16/18 1630: CARDIAC CONSULT DATE OF CONSULT Date of Consult DATE: 12/16/18 TIME: 16:16 REASON FOR CONSULT Reason for Consult: Severe cardiomyopathy now has CVA REFERRING PHYSICIAN Referring Physician: Radha SOURCE Source: Chart review HISTORY OF PRESENT ILLNESS HISTORY OF PRESENT ILLNESS This is a pleasant 23 yo male admitted for complains of visual problems. I saw him recently and had significant cardiac workup and noted with NICM which was likely caused by cocaine and ETOH use. He also smoked tobacco. Since he was discharged he never got started on any medications because of the cost and he lost his insurance card and was charging him a lot. He has not restarted any E SAYRA,cocaine nor tobacco. 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 He has been doing well till 2 days ago when he woke up and could not see on his left visual periphery. Denies any auditory disturbances, VILLAGOMEZ or facial droop, unilateral weakness, slurred speech. He was rushing and went to work and he was told to go to dicer machine operator before going to [facility]. He saw the dicer machine operator today and was told to go to ED which then he was noted with CVA. Denies any fever, cough, or SOA. PAST MEDICAL HISTORY Cardiovascular: CHF, HTN, Valve insufficiency (moderate to severe MR), Other (severe NICM) Pulmonary: No pertinent hx CENTRAL NERVOUS SYSTEM: Other (No pertinent history) GI: No pertinent hx Heme/Onc: No pertinent hx Hepatobiliary: No pertinent hx Psych: No pertinent hx Musculoskeletal: Other (No deformity) Rheumatologic: No pertinent hx Infectious disease: No pertinent hx ENT: No pertinent hx Renal/: No pertinent hx Endocrine: No pertinent hx Dermatology: No pertinent hx FAMILY HISTORY Family History: Heart Disease (mother) SOCIAL HISTORY Smoke: <1 pack per day ALCOHOL: other (binge alcoholism) Drugs: Cocaine, Marijuana Lives: with Family CURRENT MEDICATIONS CURRENT MEDICATIONS Current Medications Medications (Trade) Dose Ordered Sig/Carl Route PRN Reason Start Time Stop Time Status Last Admin Dose Admin Aspirin (Children'S Aspirin) 162 mg DAILYWBKFT PO 12/17/18 08:00 12/16/18 15:40 ALLERGIES ALLERGIES: Coded Allergies: pineapple (Verified Allergy, Intermediate, 11/30/18) ROS Review of System 14 point ROS evaluated with pertinent positives noted per HPI PHYSICAL EXAM General: Alert, Oriented X3, Cooperative, No acute distress HEENT: Mucous membr. moist/pink Lungs: Clear to auscultation, Normal air movement Heart: Regular rate (SR), Normal S1, Normal S2, Other (4/6 systolic apical murmur) Abdomen: Soft, No tenderness Extremities: No cyanosis, No edema Skin: No breakdown, No significant lesion Neuro: Normal speech, Sensation intact Psych/Mental Status: Mental status NL, Mood NL MUSCULOSKELETAL: Osteoarthritic changes both hands VITALS VITALS Vital Signs Date Time Temp Pulse Resp B/P (MAP) Pulse Ox O2 Delivery O2 Flow Rate FiO2 12/16/18 13:20 98.0 127 20 144/77 (99) 94 Room Air 98.0 LABS Lab: Laboratory Tests Test 12/16/18 13:45 White Blood Count 11.1 x10^3/uL (4.0-11.0) Red Blood Count 4.66 x10^6/uL (4.30-5.70) Hemoglobin 13.3 g/dL (13.0-17.5) Hematocrit 41.4 % (39.0-53.0) Mean Corpuscular Volume 89 fL (79-100) Mean Corpuscular Hemoglobin 29 pg (25-35) Mean Corpuscular Hemoglobin Concent 32 g/dL (31-37) Red Cell Distribution Width 13.2 % (11.5-14.5) Platelet Count 312 x10^3/uL (140-400) Neutrophils (%) (Auto) 57 % (31-73) Lymphocytes (%) (Auto) 30 % (24-48) Monocytes (%) (Auto) 11 % (0-9) Eosinophils (%) (Auto) 1 % (0-3) Basophils (%) (Auto) 1 % (0-3) Neutrophils # (Auto) 6.3 x10^3uL (1.8-7.7) Lymphocytes # (Auto) 3.4 x10^3/uL (1.0-4.8) Monocytes # (Auto) 1.3 x10^3/uL (0.0-1.1) Eosinophils # (Auto) 0.1 x10^3/uL (0.0-0.7) Basophils # (Auto) 0.1 x10^3/uL (0.0-0.2) Prothrombin Time 16.2 SEC (11.7-14.0) Prothromb Time International Ratio 1.3 (0.8-1.1) Activated Partial Thromboplast Time 28 SEC (24-38) Sodium Level 137 mmol/L (136-145) Potassium Level 3.7 mmol/L (3.5-5.1) Chloride Level 101 mmol/L (98-107) Carbon Dioxide Level 22 mmol/L (21-32) Anion Gap 14 (6-14) Blood Urea Nitrogen 14 mg/dL (8-26) Creatinine 1.4 mg/dL (0.7-1.3) Estimated GFR (Cockcroft-Gault) 74.7 BUN/Creatinine Ratio 10 (6-20) Glucose Level 116 mg/dL (70-99) Calcium Level 9.2 mg/dL (8.5-10.1) Total Bilirubin 0.7 mg/dL (0.2-1.0) Aspartate Amino Transf (AST/SGOT) 36 U/L (15-37) Alanine Aminotransferase (ALT/SGPT) 46 U/L (16-63) Alkaline Phosphatase 73 U/L (46-116) C-Reactive Protein, Quantitative 44.4 mg/L (0-3.3) Total Protein 6.9 g/dL (6.4-8.2) Albumin 3.1 g/dL (3.4-5.0) Albumin/Globulin Ratio 0.8 (1.0-1.7) Thyroid Stimulating Hormone (TSH) 2.858 uIU/mL (0.358-3.74) ECHOCARDIOGRAM ECHOCARDIOGRAM <Conclusion> The left ventricular systolic function is severely impaired. The Ejection Fraction is 20-25%. Moderate to severe mitral regurgitation. Trace tricuspid regurgitation with an estimated PAP of 39 mmHg. There is no evidence of significant pericardial effusion. DATE: 11/30/18 1015 HEART CATH HEART CATH HEMODYNAMICS: AO: 120/80 LVEDP 31 mm Hg No gradient on LV to aortic pullback. LEFT VENTRICULOGRAM: Deferred due to known LV dysfunction and moderate to severe MR. CORONARY ANGIOGRAPHY: LM is a large caliber vessel with normal angiographic appearance. LAD is a large caliber vessel with normal angiographic appearance. Ramus is a large caliber vessel with normal angiographic appearance. LCx is a small caliber non-dominant vessel with normal angiographic appearance. RCA is a moderate caliber dominant vessel with normal angiographic appearance. RPDA is a small caliber vessel with normal angiographic appearance. Conclusion 1. Acute on chronic systolic and diastolic HF, LVEDP 31 mm Hg 2. Normal angiographic appearance of the coronary arteries. Recommendations Aggressive Medical Therapy DATE: 12/01/18 1058 ASSESSMENT/PLAN ASSESSMENT/PLAN 1. Acute CVA with left homonymous hemianopsia: right temporal/occipital. possible embolic in origin 2. Possible RLL PNA per CXR: Defer to PCP 3. 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 Mod to severe MR 5. Hx of cocaine, binge ETOH, cocaine, Tobaccoism: reported has not started sinc e discharged. 6. Chronic systolic CHF: compensated 7. HTN: labile 8. Noncompliance: failed start of medication from discharge due to financial constraints. Recommendations 1. ASA. Will consider for anticoagulation pending input from neurology 2. Carotid doppler 3. Start on coreg, statin, Lasix PRN. Labetolol PRN 4. Neurology consult. 5. Will consider for RITESH. 6. Lisinopril for now, will reeval for outpt entresto as pt possibly would not be able to afford this if no ins coverage DIANA MUNGUIA MD 12/17/18 0739: CARDIAC CONSULT ASSESSMENT/PLAN ASSESSMENT/PLAN Patient seen and examined 12/16/18. Agree with BIG DATA ADMIN's assessment and plan. Non-STEMI most probably demand ischemia Cannot anticoagulate from CVA standpoint per neurology team Recent cardiac catheterization did not show any significant coronary artery disease Chronic systolic heart failure well compensated We will consider RITESH to rule out intracardiac source for CVA Agree with carotid arterial duplex scan for further evaluation Thank you for your consultation DULCE ESPINOSA APRN Dec 16, 2018 16:30 DIANA MUNGUIA MD Dec 17, 2018 07:39
[2018-12-16] MEDS ORDERED: CARVEDILOL 3.125 MG TABLET. PO SCH (17:00)
[2018-12-16] MEDS ORDERED: ENALAPRILAT 1.25 MG/ML VIAL. IVP SCH (17:00)
[2018-12-16] MEDS: CARVEDILOL 3.125 MG TABLET. PO SCH (17:15)
[2018-12-16] MEDS ORDERED: LABETALOL 20 MG/4 ML DISP.SYRIN. IVP PRN (17:30)
[2018-12-16 17:53] VITALS: BP 114/94
[2018-12-16 19:15] VITALS: BP 109/79
--- NOTE | 2018-12-16 20:14 | EKG ---
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
[2018-12-16] MEDS ORDERED: CONTRAST GIVEN. MC PRN (21:00)
[2018-12-16] MEDS ORDERED: SACUBITRIL/VALSARTAN 24/26MG TABLET. PO SCH (21:00)
[2018-12-16] MEDS ORDERED: IOHEXOL 350 MG/ML 100 ML VIAL. IV ONE (21:00)
[2018-12-16] MEDS: ATORVASTATIN CALCIUM 20 MG TABLET PO SCH (21:38)
[2018-12-16] MEDS: ACETAMINOPHEN/CODEINE 300/30MG TABLET. PO PRN (21:39)
--- NOTE | 2018-12-16 22:10 | NUR ---
Pt c/o chest tightness and SOA. Placed pt on 2L NC. Stat EKG done. Trop drawn. Dr Null on unit to see pt. Discussed pt condition with Dr Null. IV ativan ordered. Will give when available. Will notify Dr oCleman when lab returns. Call light within reach. Will continue to monitor.
[2018-12-16 23:26] VITALS: BP 115/63
[2018-12-17 03:00] VITALS: BP 117/80
[2018-12-17 04:44] LABS: AMPHETAMINE/METHAMPHETAMINE NEG (NEG); BARBITURATES NEG (NEG); BENZODIAZEPINES NEG (NEG); CANNABINOIDS POS (NEG); COCAINE NEG (NEG); METHADONE NEG (NEG); OPIATES POS (NEG); PHENCYCLIDINE NEG (NEG)
[2018-12-17] MEDS: ACETAMINOPHEN/CODEINE 300/30MG TABLET. PO PRN (05:32)
[2018-12-17 07:00] VITALS: BP 113/90
--- NOTE | 2018-12-17 07:45 | RAD ---
Carotid artery duplex Doppler ultrasound HISTORY: Stroke. TECHNIQUE: Grayscale and duplex Doppler sonography were utilized. Findings: Right carotid artery demonstrates no bulky or irregular plaque or stenosis by grayscale and color Doppler sonography. Abnormal waveforms diffusely indicating a tachyarrhythmia. Internal carotid artery peak systolic velocity 53 cm/s, end-diastolic velocity assessment is limited due to the abnormal waveforms from tachyarrhythmia. ICA/CCA velocity ratio 0.9. Right vertebral artery antegrade blood flow. Right subclavian artery not assessed. Left carotid artery demonstrates no bulky or irregular plaque or stenosis by grayscale and color Doppler sonography. Abnormal waveforms diffusely indicating a tachyarrhythmia. Internal carotid artery peak systolic velocity 37 cm/s, end-diastolic velocity assessment is limited due to the abnormal waveforms from tachyarrhythmia. ICA/CCA velocity ratio is 0.7. Left vertebral artery antegrade blood flow. The subclavian artery was not assessed. IMPRESSION: No plaque or stenosis of the cervical carotid arteries. Bilateral vertebral artery antegrade blood flow. All of the arterial waveforms are abnormal indicating the presence of a tachyarrhythmia. Clinical assessment and EKG may be of benefit. Electronically signed by: Tanmay Brooks MD (12/17/2018 7:41 AM) [facility]
--- NOTE | 2018-12-17 08:04 | RAD ---
CT angiography head and neck contrast HISTORY: Right occipital stroke COMPARISON: MRI brain December 16, 2018. TECHNIQUE: Helical arterial phase CT imaging of the head and neck with 3-D MIP and volume reconstructions of the arteries characterize vascular anatomy and pathology with 100 mL Omnipaque 350 intravenous contrast. Stenosis calculations for CT, MR, and conventional angiography are based upon measurements of the distal ICA diameter in accordance with the NASCET methodology. Stenosis calculations for carotid ultrasound studies are derived from validated velocity criteria which are known to correlate with the NASCET methodology. PQRS statement: CT scans at this facility use dose reduction including either automated exposure control, iterative reconstructions, and /or weight based radiation dosing via mA and kV modification when appropriate to reduce radiation dose to as low as reasonably achievable. Neck findings: Both cervical internal carotid arteries are small in caliber consistent with anatomic variability. No plaque, dissection flap, thrombus, aneurysm, stenosis or occlusion of the cervical carotid and vertebral arteries evident. There is mediastinal adenopathy largest imaged lymph node paratracheal station measures 2 cm. Mild dependent pleural effusions of the upper lobes. Scattered groundglass opacities and mild interstitial thickening at the lung apices. Head findings: Abrupt occlusion of the right middle cerebral artery less than 1 cm from its takeoff from the carotid artery terminus best demonstrated coronal image 21 and axial images 274-276, the middle cerebral remains occluded throughout its M1 segment to the bifurcation, there is reconstituted contrast enhancement at the peripheral arterial branches at the sylvian fissure and frontal and temporal and parietal lobes presumably due to pial collaterals providing cross flow. This occlusion is of indeterminate age, given a well-defined filling defect in the tapered nature of occlusion this could be chronic. The location of the occlusion of the carotid artery terminus and potential chronic nature could be observed with kevin kevin disease, although a chronic thrombotic occlusion is also possible. Focal occlusion due to a vasculitis is also a possibility although no beaded irregularity or stenoses of other arteries are present to otherwise suggest a vasculitis. No additional areas of vascular occlusion. No aneurysm. The right posterior cerebral artery at the site of the patient's recent acute ischemic infarct demonstrates patent contrast enhancement without thrombus or occlusion. IMPRESSION: 1. Occlusion of the right middle cerebral artery M1 segment just distal of its takeoff from the carotid artery terminus. The vessel reconstitutes contrast enhancement peripheral of the bifurcation at the small lobar arterial branches indicating some intact collateral flow across, as described above. The acuity versus chronicity of this occlusion is uncertain, given no well-defined filling defect and the somewhat tapered nature of the occlusion, it is possible this is chronic. See discussion above. 2. Otherwise normal angiogram. 3. Upper lobe apical interstitial thickening and groundglass densities may represent edema. There is mild mediastinal adenopathy. There are small pleural effusions at the dependent upper lobes. Critical results called to patient's second for nurse Jolanta at 7:58 AM December 17, 2017. Electronically signed by: Tanmay Brooks MD (12/17/2018 8:01 AM) [facility]
--- NOTE | 2018-12-17 08:12 | PDOC ---
PROGRESS NOTES Subjective Subjective Continues to have visual deficits in the left eye. Also complained of intermittent episodes of chest pain Objective Objective Vital Signs Date Time Temp Pulse Resp B/P (MAP) Pulse Ox O2 Delivery O2 Flow Rate FiO2 12/17/18 07:48 Nasal Cannula 2.0 12/17/18 06:32 96 12/17/18 05:32 22 12/17/18 03:00 97.7 117 117/80 (92) 97.7 Intake and Output 12/17/18 07:00 Intake Total 1900 ml Output Total 700 ml Balance 1200 ml Intake Oral 1900 ml Output Urine Total 700 ml Physical Exam Abdomen: Soft, No tenderness Heart: Regular rate (SR), Normal S1, Normal S2, Other (4/6 systolic apical murmur) Extremities: No cyanosis, No edema General: Alert, Oriented X3, No acute distress HEENT: Mucous membr. moist/pink Lungs: Clear to auscultation, Normal air movement Neuro: Normal speech Psych/Mental Status: Mental status NL, Mood NL Skin: No breakdown, No significant lesion Assessment Assessment 1. Acute CVA with left homonymous hemianopsia: right temporal/occipital. possible embolic in origin. Carotid arterial duplex scan did not show any significant carotid artery stenosis. Head CTA showed right MCA occlusion. Neurology team following. We will consider RITESH on Wednesday if there is concern for intracardiac source of embolus. 2. Non-STEMI most probably demand ischemia/vasospasm perform cocaine use. Recent cardiac catheterization did not show any significant coronary artery disease. 3. Severe NICM, chronic systolic heart failure: recent EF at 25% no CAD per [facility], possibly cocaine/ETOH induced. Clinically well compensated. 4. Mod to severe MR 5. Hx of cocaine, binge ETOH, cocaine, Tobaccoism: Importance of complete cessation reemphasized 6. HTN: Well-controlled 7. Noncompliance: failed start of medication from discharge due to financial constraints. Plan Plan of Care Problems Medical Problems: (1) Homonymous bilateral field defects of left side Status: Acute (2) Ischemic stroke Status: Acute Comment Review of Relevant I have reviewed the following items reshma (where applicable) has been applied. Labs Laboratory Tests Test 12/16/18 13:45 12/16/18 20:30 12/17/18 04:30 White Blood Count 11.1 x10^3/uL (4.0-11.0) Red Blood Count 4.66 x10^6/uL (4.30-5.70) Hemoglobin 13.3 g/dL (13.0-17.5) Hematocrit 41.4 % (39.0-53.0) Mean Corpuscular Volume 89 fL (79-100) Mean Corpuscular Hemoglobin 29 pg (25-35) Mean Corpuscular Hemoglobin Concent 32 g/dL (31-37) Red Cell Distribution Width 13.2 % (11.5-14.5) Platelet Count 312 x10^3/uL (140-400) Neutrophils (%) (Auto) 57 % (31-73) Lymphocytes (%) (Auto) 30 % (24-48) Monocytes (%) (Auto) 11 % (0-9) Eosinophils (%) (Auto) 1 % (0-3) Basophils (%) (Auto) 1 % (0-3) Neutrophils # (Auto) 6.3 x10^3uL (1.8-7.7) Lymphocytes # (Auto) 3.4 x10^3/uL (1.0-4.8) Monocytes # (Auto) 1.3 x10^3/uL (0.0-1.1) Eosinophils # (Auto) 0.1 x10^3/uL (0.0-0.7) Basophils # (Auto) 0.1 x10^3/uL (0.0-0.2) Erythrocyte Sedimentation Rate 0 (0-15) Prothrombin Time 16.2 SEC (11.7-14.0) Prothromb Time International Ratio 1.3 (0.8-1.1) Activated Partial Thromboplast Time 28 SEC (24-38) Sodium Level 137 mmol/L (136-145) Potassium Level 3.7 mmol/L (3.5-5.1) Chloride Level 101 mmol/L (98-107) Carbon Dioxide Level 22 mmol/L (21-32) Anion Gap 14 (6-14) Blood Urea Nitrogen 14 mg/dL (8-26) Creatinine 1.4 mg/dL (0.7-1.3) Estimated GFR (Cockcroft-Gault) 74.7 BUN/Creatinine Ratio 10 (6-20) Glucose Level 116 mg/dL (70-99) Calcium Level 9.2 mg/dL (8.5-10.1) Total Bilirubin 0.7 mg/dL (0.2-1.0) Aspartate Amino Transf (AST/SGOT) 36 U/L (15-37) Alanine Aminotransferase (ALT/SGPT) 46 U/L (16-63) Alkaline Phosphatase 73 U/L (46-116) C-Reactive Protein, Quantitative 44.4 mg/L (0-3.3) Total Protein 6.9 g/dL (6.4-8.2) Albumin 3.1 g/dL (3.4-5.0) Albumin/Globulin Ratio 0.8 (1.0-1.7) Thyroid Stimulating Hormone (TSH) 2.858 uIU/mL (0.358-3.74) Troponin I Quantitative 2.845 ng/mL (0.000-0.055) Urine Opiates Screen Pos (NEG) Urine Methadone Screen Neg (NEG) Urine Barbiturates Neg (NEG) Urine Phencyclidine Screen Neg (NEG) Urine Amphetamine/Methamphetamine Neg (NEG) Urine Benzodiazepines Screen Neg (NEG) Urine Cocaine Screen Neg (NEG) Urine Cannabinoids Screen Pos (NEG) Urine Ethyl Alcohol Neg (NEG) Medications Current Medications Acetaminophen (Tylenol) 500 mg PRN Q6HRS PRN PO MILD PAIN / TEMP; Start 12/16/18 at 16:00 Acetaminophen/ Codeine Phosphate (Tylenol #3) 1 tab PRN Q6HRS PRN PO MODERATE - SEVERE PAIN Last administered on 12/17/18at 05:32; Start 12/16/18 at 16:00 Aspirin (Children'S Aspirin) 162 mg DAILYWBKFT PO Last administered on 12/16/18at 15:40; Start 12/17/18 at 08:00 Atorvastatin Calcium (Lipitor) 20 mg QHS PO Last administered on 12/16/18at 21:38; Start 12/16/18 at 21:00 Carvedilol (Coreg) 3.125 mg BIDWMEALS PO ; Start 12/16/18 at 17:00; Stop 12/16/18 at 17:00; Status DC Carvedilol (Coreg) 3.125 mg BIDWMEALS PO Last administered on 12/16/18at 17:15; Start 12/16/18 at 17:00 Clonidine HCl (Catapres) 0.1 mg PRN Q1HR PRN PO HYPERTENSION; Start 12/16/18 at 16:00; Stop 12/16/18 at 16:47; Status DC Diphenhydramine HCl (Benadryl) 25 mg PRN QHS PRN PO INSOMNIA; Start 12/16/18 at 16:00 Enalaprilat (Vasotec Inj) 1.25 mg Q6HRS IVP ; Start 12/16/18 at 17:00; Stop 12/16/18 at 17:00; Status DC Info (CONTRAST GIVEN -- Rx MONITORING) 1 each PRN DAILY PRN MC SEE COMMENTS; Start 12/16/18 at 21:00; Stop 12/18/18 at 20:59 Iohexol (Omnipaque 350 Mg/ml) 100 ml 1X ONCE IV ; Start 12/16/18 at 21:00; Stop 12/16/18 at 21:01; Status DC Labetalol HCl (Normodyne Iv Push) 10 mg PRN Q2HRS PRN IVP HYPERTENSION; Start 12/16/18 at 17:30 Lisinopril (Prinivil) 10 mg DAILY PO ; Start 12/17/18 at 09:00 Lorazepam (Ativan Inj) 1 mg 1X ONCE IV Last administered on 12/16/18at 21:40; Start 12/16/18 at 20:45; Stop 12/16/18 at 20:46; Status DC Ondansetron HCl (Zofran) 4 mg PRN Q6HRS PRN IV NAUSEA/VOMITING; Start 12/16/18 at 16:00 Sacubitril/ Valsartan (Entresto 24 Mg-26 Mg) 1 tab BID PO ; Start 12/16/18 at 21:00; Stop 12/16/18 at 21:00; Status DC Vitals/I & O Vital Sign - Last 24 Hours 12/16/18 12/16/18 12/16/18 12/16/18 13:20 13:45 15:13 17:15 Temp 98.0 98.0 Pulse 127 122 122 131 Resp 20 B/P (MAP) 144/77 (99) 134/80 (98) 150/65 (93) 114/94 Pulse Ox 94 92 94 O2 Delivery Room Air Room Air Room Air 12/16/18 12/16/18 12/16/18 12/16/18 17:53 19:15 20:00 21:39 Temp 98.5 98.3 98.5 98.3 Pulse 132 128 Resp 18 22 24 B/P (MAP) 114/94 (101) 109/79 (89) Pulse Ox 97 97 97 O2 Delivery Room Air Room Air Nasal Cannula Nasal Cannula O2 Flow Rate 2.0 2.0 12/16/18 12/16/18 12/16/18 12/17/18 22:40 23:26 23:26 03:00 Temp 98.5 97.7 98.5 97.7 Pulse 118 117 Resp 18 21 20 B/P (MAP) 115/63 (80) 117/80 (92) Pulse Ox 89 95 96 O2 Delivery Room Air Nasal Cannula Nasal Cannula O2 Flow Rate 2.0 2.0 2.0 12/17/18 12/17/18 12/17/18 05:32 06:32 07:48 Resp 22 Pulse Ox 96 96 O2 Delivery Nasal Cannula Nasal Cannula Nasal Cannula O2 Flow Rate 2.0 2.0 Intake and Output 12/16/18 12/16/18 12/17/18 15:00 23:00 07:00 Intake Total 800 ml 1100 ml Output Total 700 ml Balance 800 ml 400 ml DIANA MUNGUIA MD Dec 17, 2018 08:12
[2018-12-17] MEDS: CARVEDILOL 3.125 MG TABLET. PO SCH ×2 (08:43→17:17)
[2018-12-17] MEDS: LISINOPRIL 10 MG TABLET PO SCH (08:44)
[2018-12-17 11:00] VITALS: BP 121/67
[2018-12-17 11:04] LABS: BASO % 0 % (0-3); EOS # 0.1 x10^3/uL (0.0-0.7); EOS % 0 % (0-3); HEMATOCRIT 40.6 % (39.0-53.0); LYMPH # 3.8 x10^3/uL (1.0-4.8); LYMPH % 30 % (24-48); MEAN CORPUSCULAR HEMOGLOBIN 29 pg (25-35); MEAN CORPUSCULAR HGB CONC 32 g/dL (31-37); MEAN CORPUSCULAR VOLUME 89 fL (79-100); MONO # 1.4 x10^3/uL (0.0-1.1); MONO % 11 % (0-9); NEUT # 7.2 x10^3uL (1.8-7.7); NEUT % 58 % (31-73); PLATELET COUNT 307 x10^3/uL (140-400); RED BLOOD COUNT 4.55 x10^6/uL (4.30-5.70); RED CELL DISTRIBUTION WIDTH 13.3 % (11.5-14.5); WHITE BLOOD COUNT 12.5 x10^3/uL (4.0-11.0)
[2018-12-17 11:25] LABS: ALBUMIN/GLOBULIN RATIO 0.8 (1.0-1.7); CALCIUM 8.9 mg/dL (8.5-10.1); CREATININE 1.3 mg/dL (0.7-1.3); GFR 81.4; POTASSIUM 3.7 mmol/L (3.5-5.1); TOTAL BILIRUBIN 0.9 mg/dL (0.2-1.0); TOTAL PROTEIN 6.6 g/dL (6.4-8.2)
--- NOTE | 2018-12-17 12:25 | CONS ---
DATE OF CONSULTATION: 12/16/2018 REFERRING PHYSICIAN: Dr. Garcia. REASON FOR CONSULTATION: Stroke. HISTORY OF PRESENT ILLNESS: The patient is a 23-year-old recently admitted to [facility], 11/29/2018. He had been experiencing dizziness. He fell down and did not strike his head. He felt some weakness on the left side of his body. This resolved by the time paramedics arrived. He underwent investigation with an echocardiogram that revealed a cardiomyopathy with an ejection fraction depressed at 25%. He underwent a cardiac catheterization, which did not reveal any coronary artery disease. He did not have evidence of a pulmonary embolus on a CT angio of the chest. A CT scan of the head did not reveal hemorrhage or stroke. He was dismissed on cardiac meds, aspirin and a statin. Unfortunately, he did not fill any of these medicines due to lack of funds. He presented to the Emergency Room on 12/16/2018. He had been experiencing symptoms for about 2 days with loss of vision to the left side. This was not associated with pain, numbness, weakness or a change in balance or coordination. He underwent an MRI of his brain, which revealed a stroke in the right temporal occipital regions. He is admitted for stroke investigation. PAST MEDICAL HISTORY: 1. Recently diagnosed cardiomyopathy. 2. Hypertension. 3. Hyperlipidemia. 4. Substance abuse with cocaine and marijuana. ALLERGIES: [place]. MEDICATIONS PRIOR TO ADMISSION: None. FAMILY HISTORY: Heart disease. SOCIAL HISTORY: He recently used cocaine. He uses marijuana and drinks occasional alcohol. He does not smoke tobacco. 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 REVIEW OF SYSTEMS: He does not currently have headache. He is feeling anxious. He does have a loss of vision to the left. He does not have a loss of hearing. He has had no cognitive changes. Does not have nose or sinus trouble. He has been able to chew and swallow without difficulty. He does have chest pain. He does not have abdominal pain. He is feeling short of breath. Does not complain of bone or joint pain. There has been no fever or rash. Does not have any gastrointestinal or genitourinary complaints. He has not had any difficulty with balance or falling. He has no numbness or weakness. PHYSICAL EXAMINATION: VITAL SIGNS: The blood pressure was 109/79, pulse 128, respirations 22, temperature 98.3 degrees Fahrenheit. Oximetry was 97% on room air. His weight was 113.4 kilograms, height 76 inches with a calculated body mass index of 30.4. GENERAL: He was alert, awake and cooperative. Speech was fluent and clear. He had good fund of recent and remote knowledge. Attention and concentration was intact. He appeared well groomed and well nourished. He was fully oriented. NEUROLOGIC: Examination of the cranial nerves revealed visual robertson were not full to confrontation. He had a left homonymous hemianopsia. Extraocular movements were intact. The eyes were conjugate. Pursuit movements were smooth and saccadic eye movements were without dysmetria. Pupils were 3 mm and reactive. Funduscopic exam did not reveal papilledema, exudate or hemorrhage. Facial sensation was intact. The muscles of mastication and facial expression were powerful symmetrically. Hearing was intact to finger rub. The palate arched symmetrically and the tongue was midline with full range of motion. Sternocleidomastoid and trapezius were powerful. Muscle bulk and tone was normal. There is no arm drift or abnormal movement. There is no leg drift. Power was full and symmetric in the upper and lower extremities. Reflexes were 1/4 and symmetric in the upper and lower extremities. Toes were downgoing bilaterally. Coordination testing with [id number], [id number], fine motor and rapid alternating movements was well performed. Sensory exam was intact to pain, light touch, proprioception, graphesthesia, cold thermal and vibration. There is no extinction to double simultaneous stimulation. Gait was not testable. Auscultation of the carotid arteries did not reveal a bruit. Heart rhythm is regular, rapid without a murmur. Peripheral pulses were symmetric in the hands and feet. There was no edema or cyanosis of the extremities. REVIEW OF LABORATORY DATA: CBC revealed an elevated white count of 11.1 with normal hemoglobin, hematocrit and platelet count. Sedimentation rate was 0. Chemistries revealed normal electrolytes. BUN was normal. Creatinine elevated to 1.4. The GFR calculated at 74.7. Glucose was elevated at 116. Calcium was normal. Liver enzymes were not elevated. Total protein was normal. Albumin was low at 3.1. TSH was normal. CRP was elevated markedly at 44.7. Urine drug screen was performed, 11/29/2018, revealing positive for cocaine and cannabinoids. Urinalysis on 11/29/2018 was negative. On 12/16/2018, PT/INR was 1.3 and PTT was 28. CT scan of the head was performed on 11/30/2018 and revealed no acute intracranial process. MRI brain was performed, 12/16/2018. I reviewed these images. This revealed a large area of stroke in the right posterior temporal lobe and occipital lobe with some surrounding edema, but no mass effect. This had increased signal on diffusion weighted, diminished signal on ADC trace. Chest x-ray revealed right basal infiltrates, suggesting pneumonia and moderate cardiomegaly. Chest CTA was performed on 11/29/2018, revealing no evidence for pulmonary embolism. There were multiple ground-glass patchy airspace opacities identified in the bibasilar lungs and in the right middle lobe of the lung, likely atelectasis or infiltrate or edema. There was cardiomegaly. IMPRESSION: The patient is a 23-year-old who came in on 11/29/2018 with transient symptoms of hemiparesis, which resolved. He has now presented with a right occipital and right posterior temporal stroke. The previous event may have been a transient ischemic attack. CT scan at that time was negative. He was to start aspirin, atorvastatin as well as cardiac meds, but did not start anything. Prognosis for the current stroke for return of vision is poor, but people learn to compensate very well with right visual field. The cause of the stroke is not clear, nor is the cause of the cardiomyopathy. The ejection fraction is 25%, so a cardioembolic source would seem less likely. RECOMMENDATIONS: I will obtain a CTA of the head and neck as this will better evaluate the vertebrobasilar system. We will obtain blood work to look for hypercoagulable state or inflammatory process. He has been started on aspirin and atorvastatin as well as meds to manage the blood pressure. At this point, I do recommend against anticoagulation due to the risk of hemorrhagic conversion of the stroke. I would recommend holding off on anticoagulation for 10-14 days. I would not anticoagulate unless there was a definite cardioembolic source found. He will need to have the services of the therapies. I appreciate being involved in his care. GRAYSON TIJERINA MD DR: AMRIK/jayson JOB#: [id number] / [id number]
[2018-12-17] MEDS: LORazepam 0.5 MG TABLET PO PRN (12:47)
[2018-12-17 15:00] VITALS: BP 102/61
[2018-12-17 15:10] LABS: RHEUMATOID FACTOR <10.0 IU/mL (0.0-13.9)
--- NOTE | 2018-12-17 16:03 | PDOC ---
PROGRESS NOTES Chief Complaint Chief Complaint NSTEMI recent Acute right CVA, posterior occipital temporal area with mild surrounding edema but no midline shift, w. vision deficit acute systolic CHF cardiomyopathy EF 25% with clean LHC November 2018 Sober from cocaine since past admit Positive family history of heart disease-mother Accelerated hypertension POA anxiety disorder, insomnia History of Present Illness History of Present Illness he talked about anxiety, prior substance use, long history of anxiety, would like to try chronic med his mother was in room, and assisted with story and plan CV following, november RITESH on wednesday Neuro following, cannot anticoag for NSTEMI due to recet CVA - Neuro recommend against anticoagulation due to the risk of hemorrhagic conversion of the stroke Vitals Vitals Vital Signs Date Time Temp Pulse Resp B/P (MAP) Pulse Ox O2 Delivery O2 Flow Rate FiO2 12/17/18 15:00 98.2 116 28 102/61 (75) 92 Nasal Cannula 2.0 98.2 Physical Exam General: Alert, Oriented X3, No acute distress Heart: Regular rate (SR), Normal S1, Normal S2, Other (4/6 systolic apical murmur) Lungs: Clear Abdomen: Soft, No tenderness Extremities: No cyanosis, No edema Skin: No breakdown, No significant lesion Labs LABS Laboratory Tests Test 12/16/18 20:30 12/17/18 04:30 12/17/18 05:25 Troponin I Quantitative 2.845 ng/mL (0.000-0.055) 11.376 ng/mL (0.000-0.055) Urine Opiates Screen Pos (NEG) Urine Methadone Screen Neg (NEG) Urine Barbiturates Neg (NEG) Urine Phencyclidine Screen Neg (NEG) Urine Amphetamine/Methamphetamine Neg (NEG) Urine Benzodiazepines Screen Neg (NEG) Urine Cocaine Screen Neg (NEG) Urine Cannabinoids Screen Pos (NEG) Urine Ethyl Alcohol Neg (NEG) White Blood Count 12.5 x10^3/uL (4.0-11.0) Red Blood Count 4.55 x10^6/uL (4.30-5.70) Hemoglobin 13.0 g/dL (13.0-17.5) Hematocrit 40.6 % (39.0-53.0) Mean Corpuscular Volume 89 fL (79-100) Mean Corpuscular Hemoglobin 29 pg (25-35) Mean Corpuscular Hemoglobin Concent 32 g/dL (31-37) Red Cell Distribution Width 13.3 % (11.5-14.5) Platelet Count 307 x10^3/uL (140-400) Neutrophils (%) (Auto) 58 % (31-73) Lymphocytes (%) (Auto) 30 % (24-48) Monocytes (%) (Auto) 11 % (0-9) Eosinophils (%) (Auto) 0 % (0-3) Basophils (%) (Auto) 0 % (0-3) Neutrophils # (Auto) 7.2 x10^3uL (1.8-7.7) Lymphocytes # (Auto) 3.8 x10^3/uL (1.0-4.8) Monocytes # (Auto) 1.4 x10^3/uL (0.0-1.1) Eosinophils # (Auto) 0.1 x10^3/uL (0.0-0.7) Basophils # (Auto) 0.0 x10^3/uL (0.0-0.2) Sodium Level 134 mmol/L (136-145) Potassium Level 3.7 mmol/L (3.5-5.1) Chloride Level 100 mmol/L (98-107) Carbon Dioxide Level 22 mmol/L (21-32) Anion Gap 12 (6-14) Blood Urea Nitrogen 14 mg/dL (8-26) Creatinine 1.3 mg/dL (0.7-1.3) Estimated GFR (Cockcroft-Gault) 81.4 BUN/Creatinine Ratio 11 (6-20) Glucose Level 107 mg/dL (70-99) Calcium Level 8.9 mg/dL (8.5-10.1) Total Bilirubin 0.9 mg/dL (0.2-1.0) Aspartate Amino Transf (AST/SGOT) 146 U/L (15-37) Alanine Aminotransferase (ALT/SGPT) 79 U/L (16-63) Alkaline Phosphatase 90 U/L (46-116) Total Protein 6.6 g/dL (6.4-8.2) Albumin 3.0 g/dL (3.4-5.0) Albumin/Globulin Ratio 0.8 (1.0-1.7) Rheumatoid Factor <10.0 IU/mL (0.0-13.9) Assessment and Plan Assessmemt and Plan Problems Medical Problems: (1) Homonymous bilateral field defects of left side Status: Acute (2) Ischemic stroke Status: Acute Comment Review of Relevant I have reviewed the following items reshma (where applicable) has been applied. Labs Laboratory Tests Test 12/16/18 13:45 12/16/18 20:30 12/17/18 04:30 12/17/18 05:25 White Blood Count 11.1 x10^3/uL (4.0-11.0) 12.5 x10^3/uL (4.0-11.0) Red Blood Count 4.66 x10^6/uL (4.30-5.70) 4.55 x10^6/uL (4.30-5.70) Hemoglobin 13.3 g/dL (13.0-17.5) 13.0 g/dL (13.0-17.5) Hematocrit 41.4 % (39.0-53.0) 40.6 % (39.0-53.0) Mean Corpuscular Volume 89 fL (79-100) 89 fL (79-100) Mean Corpuscular Hemoglobin 29 pg (25-35) 29 pg (25-35) Mean Corpuscular Hemoglobin Concent 32 g/dL (31-37) 32 g/dL (31-37) Red Cell Distribution Width 13.2 % (11.5-14.5) 13.3 % (11.5-14.5) Platelet Count 312 x10^3/uL (140-400) 307 x10^3/uL (140-400) Neutrophils (%) (Auto) 57 % (31-73) 58 % (31-73) Lymphocytes (%) (Auto) 30 % (24-48) 30 % (24-48) Monocytes (%) (Auto) 11 % (0-9) 11 % (0-9) Eosinophils (%) (Auto) 1 % (0-3) 0 % (0-3) Basophils (%) (Auto) 1 % (0-3) 0 % (0-3) Neutrophils # (Auto) 6.3 x10^3uL (1.8-7.7) 7.2 x10^3uL (1.8-7.7) Lymphocytes # (Auto) 3.4 x10^3/uL (1.0-4.8) 3.8 x10^3/uL (1.0-4.8) Monocytes # (Auto) 1.3 x10^3/uL (0.0-1.1) 1.4 x10^3/uL (0.0-1.1) Eosinophils # (Auto) 0.1 x10^3/uL (0.0-0.7) 0.1 x10^3/uL (0.0-0.7) Basophils # (Auto) 0.1 x10^3/uL (0.0-0.2) 0.0 x10^3/uL (0.0-0.2) Erythrocyte Sedimentation Rate 0 (0-15) Prothrombin Time 16.2 SEC (11.7-14.0) Prothromb Time International Ratio 1.3 (0.8-1.1) Activated Partial Thromboplast Time 28 SEC (24-38) Sodium Level 137 mmol/L (136-145) 134 mmol/L (136-145) Potassium Level 3.7 mmol/L (3.5-5.1) 3.7 mmol/L (3.5-5.1) Chloride Level 101 mmol/L (98-107) 100 mmol/L (98-107) Carbon Dioxide Level 22 mmol/L (21-32) 22 mmol/L (21-32) Anion Gap 14 (6-14) 12 (6-14) Blood Urea Nitrogen 14 mg/dL (8-26) 14 mg/dL (8-26) Creatinine 1.4 mg/dL (0.7-1.3) 1.3 mg/dL (0.7-1.3) Estimated GFR (Cockcroft-Gault) 74.7 81.4 BUN/Creatinine Ratio 10 (6-20) 11 (6-20) Glucose Level 116 mg/dL (70-99) 107 mg/dL (70-99) Calcium Level 9.2 mg/dL (8.5-10.1) 8.9 mg/dL (8.5-10.1) Total Bilirubin 0.7 mg/dL (0.2-1.0) 0.9 mg/dL (0.2-1.0) Aspartate Amino Transf (AST/SGOT) 36 U/L (15-37) 146 U/L (15-37) Alanine Aminotransferase (ALT/SGPT) 46 U/L (16-63) 79 U/L (16-63) Alkaline Phosphatase 73 U/L (46-116) 90 U/L (46-116) C-Reactive Protein, Quantitative 44.4 mg/L (0-3.3) Total Protein 6.9 g/dL (6.4-8.2) 6.6 g/dL (6.4-8.2) Albumin 3.1 g/dL (3.4-5.0) 3.0 g/dL (3.4-5.0) Albumin/Globulin Ratio 0.8 (1.0-1.7) 0.8 (1.0-1.7) Thyroid Stimulating Hormone (TSH) 2.858 uIU/mL (0.358-3.74) Troponin I Quantitative 2.845 ng/mL (0.000-0.055) 11.376 ng/mL (0.000-0.055) Urine Opiates Screen Pos (NEG) Urine Methadone Screen Neg (NEG) Urine Barbiturates Neg (NEG) Urine Phencyclidine Screen Neg (NEG) Urine Amphetamine/Methamphetamine Neg (NEG) Urine Benzodiazepines Screen Neg (NEG) Urine Cocaine Screen Neg (NEG) Urine Cannabinoids Screen Pos (NEG) Urine Ethyl Alcohol Neg (NEG) Rheumatoid Factor <10.0 IU/mL (0.0-13.9) Laboratory Tests Test 12/16/18 20:30 12/17/18 04:30 12/17/18 05:25 Troponin I Quantitative 2.845 ng/mL (0.000-0.055) 11.376 ng/mL (0.000-0.055) Urine Opiates Screen Pos (NEG) Urine Methadone Screen Neg (NEG) Urine Barbiturates Neg (NEG) Urine Phencyclidine Screen Neg (NEG) Urine Amphetamine/Methamphetamine Neg (NEG) Urine Benzodiazepines Screen Neg (NEG) Urine Cocaine Screen Neg (NEG) Urine Cannabinoids Screen Pos (NEG) Urine Ethyl Alcohol Neg (NEG) White Blood Count 12.5 x10^3/uL (4.0-11.0) Red Blood Count 4.55 x10^6/uL (4.30-5.70) Hemoglobin 13.0 g/dL (13.0-17.5) Hematocrit 40.6 % (39.0-53.0) Mean Corpuscular Volume 89 fL (79-100) Mean Corpuscular Hemoglobin 29 pg (25-35) Mean Corpuscular Hemoglobin Concent 32 g/dL (31-37) Red Cell Distribution Width 13.3 % (11.5-14.5) Platelet Count 307 x10^3/uL (140-400) Neutrophils (%) (Auto) 58 % (31-73) Lymphocytes (%) (Auto) 30 % (24-48) Monocytes (%) (Auto) 11 % (0-9) Eosinophils (%) (Auto) 0 % (0-3) Basophils (%) (Auto) 0 % (0-3) Neutrophils # (Auto) 7.2 x10^3uL (1.8-7.7) Lymphocytes # (Auto) 3.8 x10^3/uL (1.0-4.8) Monocytes # (Auto) 1.4 x10^3/uL (0.0-1.1) Eosinophils # (Auto) 0.1 x10^3/uL (0.0-0.7) Basophils # (Auto) 0.0 x10^3/uL (0.0-0.2) Sodium Level 134 mmol/L (136-145) Potassium Level 3.7 mmol/L (3.5-5.1) Chloride Level 100 mmol/L (98-107) Carbon Dioxide Level 22 mmol/L (21-32) Anion Gap 12 (6-14) Blood Urea Nitrogen 14 mg/dL (8-26) Creatinine 1.3 mg/dL (0.7-1.3) Estimated GFR (Cockcroft-Gault) 81.4 BUN/Creatinine Ratio 11 (6-20) Glucose Level 107 mg/dL (70-99) Calcium Level 8.9 mg/dL (8.5-10.1) Total Bilirubin 0.9 mg/dL (0.2-1.0) Aspartate Amino Transf (AST/SGOT) 146 U/L (15-37) Alanine Aminotransferase (ALT/SGPT) 79 U/L (16-63) Alkaline Phosphatase 90 U/L (46-116) Total Protein 6.6 g/dL (6.4-8.2) Albumin 3.0 g/dL (3.4-5.0) Albumin/Globulin Ratio 0.8 (1.0-1.7) Rheumatoid Factor <10.0 IU/mL (0.0-13.9) Medications Current Medications Aspirin (Children'S Aspirin) 162 mg DAILYWBKFT PO Last administered on 12/16/18at 15:40; Start 12/17/18 at 08:00 Atorvastatin Calcium (Lipitor) 20 mg QHS PO Last administered on 12/16/18at 21:38; Start 12/16/18 at 21:00 Carvedilol (Coreg) 3.125 mg BIDWMEALS PO Last administered on 12/17/18at 08:43; Start 12/16/18 at 17:00 Acetaminophen (Tylenol) 500 mg PRN Q6HRS PRN PO MILD PAIN / TEMP; Start 12/16/18 at 16:00 Acetaminophen/ Codeine Phosphate (Tylenol #3) 1 tab PRN Q6HRS PRN PO MODERATE - SEVERE PAIN Last administered on 12/17/18at 05:32; Start 12/16/18 at 16:00 Ondansetron HCl (Zofran) 4 mg PRN Q6HRS PRN IV NAUSEA/VOMITING; Start 12/16/18 at 16:00 Clonidine HCl (Catapres) 0.1 mg PRN Q1HR PRN PO HYPERTENSION; Start 12/16/18 at 16:00; Stop 12/16/18 at 16:47; Status DC Diphenhydramine HCl (Benadryl) 25 mg PRN QHS PRN PO INSOMNIA; Start 12/16/18 at 16:00 Enalaprilat (Vasotec Inj) 1.25 mg Q6HRS IVP ; Start 12/16/18 at 17:00; Stop 12/16/18 at 17:00; Status DC Sacubitril/ Valsartan (Entresto 24 Mg-26 Mg) 1 tab BID PO ; Start 12/16/18 at 21:00; Stop 12/16/18 at 21:00; Status DC Carvedilol (Coreg) 3.125 mg BIDWMEALS PO ; Start 12/16/18 at 17:00; Stop 12/16/18 at 17:00; Status DC Labetalol HCl (Normodyne Iv Push) 10 mg PRN Q2HRS PRN IVP HYPERTENSION; Start 12/16/18 at 17:30 Lisinopril (Prinivil) 10 mg DAILY PO Last administered on 12/17/18at 08:44; Start 12/17/18 at 09:00 Lorazepam (Ativan Inj) 1 mg 1X ONCE IV Last administered on 12/16/18at 21:40; Start 12/16/18 at 20:45; Stop 12/16/18 at 20:46; Status DC Iohexol (Omnipaque 350 Mg/ml) 100 ml 1X ONCE IV ; Start 12/16/18 at 21:00; Stop 12/16/18 at 21:01; Status DC Info (CONTRAST GIVEN -- Rx MONITORING) 1 each PRN DAILY PRN MC SEE COMMENTS; Start 12/16/18 at 21:00; Stop 12/18/18 at 20:59 Lorazepam (Ativan) 0.5 mg PRN Q8HRS PRN PO ANXIETY / AGITATION Last administered on 12/17/18at 12:47; Start 12/17/18 at 10:45 Sertraline HCl (Zoloft) 25 mg QHS PO ; Start 12/17/18 at 21:00 Active Scripts Active Aspirin Ec (Aspirin) 81 Mg Tablet. 81 Mg PO DAILYWBKFT 30 Days Carvedilol (Carvedilol) 3.125 Mg Tablet 3.125 Mg PO BIDWMEALS 30 Days Atorvastatin Calcium 20 Mg Tablet 20 Mg PO QHS 30 Days Vitals/I & O Vital Sign - Last 24 Hours 12/16/18 12/16/18 12/16/18 12/16/18 17:15 17:53 19:15 20:00 Temp 98.5 98.3 98.5 98.3 Pulse 131 132 128 Resp 18 22 B/P (MAP) 114/94 114/94 (101) 109/79 (89) Pulse Ox 97 97 O2 Delivery Room Air Room Air Nasal Cannula O2 Flow Rate 2.0 12/16/18 12/16/18 12/16/18 12/16/18 21:39 22:40 23:26 23:26 Temp 98.5 98.5 Pulse 118 Resp 24 18 21 B/P (MAP) 115/63 (80) Pulse Ox 97 89 95 O2 Delivery Nasal Cannula Room Air Nasal Cannula O2 Flow Rate 2.0 2.0 2.0 12/17/18 12/17/18 12/17/18 12/17/18 03:00 05:32 06:32 07:00 Temp 97.7 98.1 97.7 98.1 Pulse 117 109 Resp 20 22 32 B/P (MAP) 117/80 (92) 113/90 (98) Pulse Ox 96 96 96 90 O2 Delivery Nasal Cannula Nasal Cannula Nasal Cannula Nasal Cannula O2 Flow Rate 2.0 2.0 2.0 12/17/18 12/17/18 12/17/18 12/17/18 07:48 08:43 08:44 11:00 Temp 97.7 97.7 Pulse 109 109 113 Resp 16 B/P (MAP) 113/90 113/90 121/67 (85) Pulse Ox 94 O2 Delivery Nasal Cannula Nasal Cannula O2 Flow Rate 2.0 2.0 12/17/18 15:00 Temp 98.2 98.2 Pulse 116 Resp 28 B/P (MAP) 102/61 (75) Pulse Ox 92 O2 Delivery Nasal Cannula O2 Flow Rate 2.0 Intake and Output 12/16/18 12/16/18 12/17/18 15:00 23:00 07:00 Intake Total 800 ml 1100 ml Output Total 700 ml Balance 800 ml 400 ml LES PEDRAZA MD Dec 17, 2018 16:03
[2018-12-17 19:38] VITALS: BP 91/60
[2018-12-17] MEDS: ONDANSETRON PF 4 MG/2 ML VIAL. IV PRN (19:53)
[2018-12-17] MEDS: ATORVASTATIN CALCIUM 20 MG TABLET PO SCH (20:49)
[2018-12-17] MEDS: SERTRALINE 25 MG TABLET. PO SCH (20:49)
--- NOTE | 2018-12-17 22:01 | PDOC ---
PROGRESS NOTES Assessment 1. He suffered a stroke of his right hemisphere in the distribution of the middle cerebral artery which initially resulted in a left homonymous hemianopsia. This is improving and now he has a left upper outer quadrant visual field loss. He does not have sensory motor deficits, speech deficits or confusion. 2. The CTA of the head was abnormal. 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 Fortunately, there is good collateral circulation and the vessel reconstitutes peripheral to the bifurcation. The radiologist feels this may be more of a chronic occlusion because of the collateral circulation. There is no evidence for vasculitis with the imaging. The neck vessels were normal. 3. He has a nonischemic cardiomyopathy with acute and chronic congestive heart failure. The cause of this is not clear but could be related to drug usage. The last ejection fraction was 25%. It's not clear that there was an cardioembolic source causing the stroke. 4. He has hyperlipidemia. 5. He has hypertension. 6. He has a history of polysubstance abuse with the most recent usage one week prior to admission. Plan 1. I would recommend the use of aspirin as a stroke preventative. 2. I would recommend a statin to address the elevated cholesterol and CRP. 3. I would favor a transesophageal echocardiogram to make sure there is not a cardioembolic source. 4. Troponin is elevated. Nurse will make sure cardiology is aware of this and that other intervention is not required. He recently underwent a cardiac catheterization which did not reveal coronary artery disease. 5. He has been experiencing a great deal of anxiety. He was initiated on sertraline. I have made available lorazepam as needed as a temporary measure. Subjective I didn't realize until they told me that I had to come to the hospital that I had a problem with anxiety. I vision seems a little better. I hadn't had any trouble with walking or talking. My strength and sensation are good. Objective Vital Signs Date Time Temp Pulse Resp B/P (MAP) Pulse Ox O2 Delivery O2 Flow Rate FiO2 12/17/18 20:15 Room Air 12/17/18 19:38 98.5 123 20 91/60 (70) 95 2.0 98.5 Intake and Output 12/17/18 06:59 Intake Total 1900 ml Output Total 700 ml Balance 1200 ml Intake Oral 1900 ml Output Urine Total 700 ml PHYSICAL EXAM He was alert, awake and cooperative. Speech was fluent and clear. He had a good fund of recent and remote knowledge. Attention and concentration was intact. The eyes were conjugate and face symmetric. Visual robertson to confrontation revealed a left upper outer quadrant visual field loss. He was starting to see in the left lower quadrant. Movements were symmetric and well coordinated. Sitting balance was good. Review of Relevant I have reviewed the following items reshma (where applicable) has been applied. Labs Laboratory Tests Test 12/16/18 13:45 12/16/18 20:30 12/17/18 04:30 12/17/18 05:25 White Blood Count 11.1 x10^3/uL (4.0-11.0) 12.5 x10^3/uL (4.0-11.0) Red Blood Count 4.66 x10^6/uL (4.30-5.70) 4.55 x10^6/uL (4.30-5.70) Hemoglobin 13.3 g/dL (13.0-17.5) 13.0 g/dL (13.0-17.5) Hematocrit 41.4 % (39.0-53.0) 40.6 % (39.0-53.0) Mean Corpuscular Volume 89 fL (79-100) 89 fL (79-100) Mean Corpuscular Hemoglobin 29 pg (25-35) 29 pg (25-35) Mean Corpuscular Hemoglobin Concent 32 g/dL (31-37) 32 g/dL (31-37) Red Cell Distribution Width 13.2 % (11.5-14.5) 13.3 % (11.5-14.5) Platelet Count 312 x10^3/uL (140-400) 307 x10^3/uL (140-400) Neutrophils (%) (Auto) 57 % (31-73) 58 % (31-73) Lymphocytes (%) (Auto) 30 % (24-48) 30 % (24-48) Monocytes (%) (Auto) 11 % (0-9) 11 % (0-9) Eosinophils (%) (Auto) 1 % (0-3) 0 % (0-3) Basophils (%) (Auto) 1 % (0-3) 0 % (0-3) Neutrophils # (Auto) 6.3 x10^3uL (1.8-7.7) 7.2 x10^3uL (1.8-7.7) Lymphocytes # (Auto) 3.4 x10^3/uL (1.0-4.8) 3.8 x10^3/uL (1.0-4.8) Monocytes # (Auto) 1.3 x10^3/uL (0.0-1.1) 1.4 x10^3/uL (0.0-1.1) Eosinophils # (Auto) 0.1 x10^3/uL (0.0-0.7) 0.1 x10^3/uL (0.0-0.7) Basophils # (Auto) 0.1 x10^3/uL (0.0-0.2) 0.0 x10^3/uL (0.0-0.2) Erythrocyte Sedimentation Rate 0 (0-15) Prothrombin Time 16.2 SEC (11.7-14.0) Prothromb Time International Ratio 1.3 (0.8-1.1) Activated Partial Thromboplast Time 28 SEC (24-38) Sodium Level 137 mmol/L (136-145) 134 mmol/L (136-145) Potassium Level 3.7 mmol/L (3.5-5.1) 3.7 mmol/L (3.5-5.1) Chloride Level 101 mmol/L (98-107) 100 mmol/L (98-107) Carbon Dioxide Level 22 mmol/L (21-32) 22 mmol/L (21-32) Anion Gap 14 (6-14) 12 (6-14) Blood Urea Nitrogen 14 mg/dL (8-26) 14 mg/dL (8-26) Creatinine 1.4 mg/dL (0.7-1.3) 1.3 mg/dL (0.7-1.3) Estimated GFR (Cockcroft-Gault) 74.7 81.4 BUN/Creatinine Ratio 10 (6-20) 11 (6-20) Glucose Level 116 mg/dL (70-99) 107 mg/dL (70-99) Calcium Level 9.2 mg/dL (8.5-10.1) 8.9 mg/dL (8.5-10.1) Total Bilirubin 0.7 mg/dL (0.2-1.0) 0.9 mg/dL (0.2-1.0) Aspartate Amino Transf (AST/SGOT) 36 U/L (15-37) 146 U/L (15-37) Alanine Aminotransferase (ALT/SGPT) 46 U/L (16-63) 79 U/L (16-63) Alkaline Phosphatase 73 U/L (46-116) 90 U/L (46-116) C-Reactive Protein, Quantitative 44.4 mg/L (0-3.3) Total Protein 6.9 g/dL (6.4-8.2) 6.6 g/dL (6.4-8.2) Albumin 3.1 g/dL (3.4-5.0) 3.0 g/dL (3.4-5.0) Albumin/Globulin Ratio 0.8 (1.0-1.7) 0.8 (1.0-1.7) Thyroid Stimulating Hormone (TSH) 2.858 uIU/mL (0.358-3.74) Troponin I Quantitative 2.845 ng/mL (0.000-0.055) 11.376 ng/mL (0.000-0.055) Urine Opiates Screen Pos (NEG) Urine Methadone Screen Neg (NEG) Urine Barbiturates Neg (NEG) Urine Phencyclidine Screen Neg (NEG) Urine Amphetamine/Methamphetamine Neg (NEG) Urine Benzodiazepines Screen Neg (NEG) Urine Cocaine Screen Neg (NEG) Urine Cannabinoids Screen Pos (NEG) Urine Ethyl Alcohol Neg (NEG) Rheumatoid Factor <10.0 IU/mL (0.0-13.9) Laboratory Tests Test 12/17/18 04:30 12/17/18 05:25 Urine Opiates Screen Pos (NEG) Urine Methadone Screen Neg (NEG) Urine Barbiturates Neg (NEG) Urine Phencyclidine Screen Neg (NEG) Urine Amphetamine/Methamphetamine Neg (NEG) Urine Benzodiazepines Screen Neg (NEG) Urine Cocaine Screen Neg (NEG) Urine Cannabinoids Screen Pos (NEG) Urine Ethyl Alcohol Neg (NEG) White Blood Count 12.5 x10^3/uL (4.0-11.0) Red Blood Count 4.55 x10^6/uL (4.30-5.70) Hemoglobin 13.0 g/dL (13.0-17.5) Hematocrit 40.6 % (39.0-53.0) Mean Corpuscular Volume 89 fL (79-100) Mean Corpuscular Hemoglobin 29 pg (25-35) Mean Corpuscular Hemoglobin Concent 32 g/dL (31-37) Red Cell Distribution Width 13.3 % (11.5-14.5) Platelet Count 307 x10^3/uL (140-400) Neutrophils (%) (Auto) 58 % (31-73) Lymphocytes (%) (Auto) 30 % (24-48) Monocytes (%) (Auto) 11 % (0-9) Eosinophils (%) (Auto) 0 % (0-3) Basophils (%) (Auto) 0 % (0-3) Neutrophils # (Auto) 7.2 x10^3uL (1.8-7.7) Lymphocytes # (Auto) 3.8 x10^3/uL (1.0-4.8) Monocytes # (Auto) 1.4 x10^3/uL (0.0-1.1) Eosinophils # (Auto) 0.1 x10^3/uL (0.0-0.7) Basophils # (Auto) 0.0 x10^3/uL (0.0-0.2) Sodium Level 134 mmol/L (136-145) Potassium Level 3.7 mmol/L (3.5-5.1) Chloride Level 100 mmol/L (98-107) Carbon Dioxide Level 22 mmol/L (21-32) Anion Gap 12 (6-14) Blood Urea Nitrogen 14 mg/dL (8-26) Creatinine 1.3 mg/dL (0.7-1.3) Estimated GFR (Cockcroft-Gault) 81.4 BUN/Creatinine Ratio 11 (6-20) Glucose Level 107 mg/dL (70-99) Calcium Level 8.9 mg/dL (8.5-10.1) Total Bilirubin 0.9 mg/dL (0.2-1.0) Aspartate Amino Transf (AST/SGOT) 146 U/L (15-37) Alanine Aminotransferase (ALT/SGPT) 79 U/L (16-63) Alkaline Phosphatase 90 U/L (46-116) Troponin I Quantitative 11.376 ng/mL (0.000-0.055) Total Protein 6.6 g/dL (6.4-8.2) Albumin 3.0 g/dL (3.4-5.0) Albumin/Globulin Ratio 0.8 (1.0-1.7) Rheumatoid Factor <10.0 IU/mL (0.0-13.9) Medications Current Medications Aspirin (Children'S Aspirin) 162 mg DAILYWBKFT PO Last administered on 12/16/18at 15:40; Start 12/17/18 at 08:00 Atorvastatin Calcium (Lipitor) 20 mg QHS PO Last administered on 12/17/18at 20:49; Start 12/16/18 at 21:00 Carvedilol (Coreg) 3.125 mg BIDWMEALS PO Last administered on 12/17/18at 17:17; Start 12/16/18 at 17:00 Acetaminophen (Tylenol) 500 mg PRN Q6HRS PRN PO MILD PAIN / TEMP; Start 12/16/18 at 16:00 Acetaminophen/ Codeine Phosphate (Tylenol #3) 1 tab PRN Q6HRS PRN PO MODERATE - SEVERE PAIN Last administered on 12/17/18at 05:32; Start 12/16/18 at 16:00 Ondansetron HCl (Zofran) 4 mg PRN Q6HRS PRN IV NAUSEA/VOMITING Last administered on 12/17/18at 19:53; Start 12/16/18 at 16:00 Clonidine HCl (Catapres) 0.1 mg PRN Q1HR PRN PO HYPERTENSION; Start 12/16/18 at 16:00; Stop 12/16/18 at 16:47; Status DC Diphenhydramine HCl (Benadryl) 25 mg PRN QHS PRN PO INSOMNIA; Start 12/16/18 at 16:00 Enalaprilat (Vasotec Inj) 1.25 mg Q6HRS IVP ; Start 12/16/18 at 17:00; Stop 12/16/18 at 17:00; Status DC Sacubitril/ Valsartan (Entresto 24 Mg-26 Mg) 1 tab BID PO ; Start 12/16/18 at 21:00; Stop 12/16/18 at 21:00; Status DC Carvedilol (Coreg) 3.125 mg BIDWMEALS PO ; Start 12/16/18 at 17:00; Stop 12/16/18 at 17:00; Status DC Labetalol HCl (Normodyne Iv Push) 10 mg PRN Q2HRS PRN IVP HYPERTENSION; Start 12/16/18 at 17:30 Lisinopril (Prinivil) 10 mg DAILY PO Last administered on 12/17/18at 08:44; Start 12/17/18 at 09:00 Lorazepam (Ativan Inj) 1 mg 1X ONCE IV Last administered on 12/16/18at 21:40; Start 12/16/18 at 20:45; Stop 12/16/18 at 20:46; Status DC Iohexol (Omnipaque 350 Mg/ml) 100 ml 1X ONCE IV ; Start 12/16/18 at 21:00; Stop 12/16/18 at 21:01; Status DC Info (CONTRAST GIVEN -- Rx MONITORING) 1 each PRN DAILY PRN MC SEE COMMENTS; Start 12/16/18 at 21:00; Stop 12/18/18 at 20:59 Lorazepam (Ativan) 0.5 mg PRN Q8HRS PRN PO ANXIETY / AGITATION Last administered on 12/17/18at 12:47; Start 12/17/18 at 10:45 Sertraline HCl (Zoloft) 25 mg QHS PO Last administered on 12/17/18at 20:49; Start 12/17/18 at 21:00 Active Scripts Active Aspirin Ec (Aspirin) 81 Mg Tablet. 81 Mg PO DAILYWBKFT 30 Days Carvedilol (Carvedilol) 3.125 Mg Tablet 3.125 Mg PO BIDWMEALS 30 Days Atorvastatin Calcium 20 Mg Tablet 20 Mg PO QHS 30 Days Vitals/I & O Vital Sign - Last 24 Hours 12/16/18 12/16/18 12/16/18 12/17/18 22:40 23:26 23:26 03:00 Temp 98.5 97.7 98.5 97.7 Pulse 118 117 Resp 18 21 20 B/P (MAP) 115/63 (80) 117/80 (92) Pulse Ox 89 95 96 O2 Delivery Room Air Nasal Cannula Nasal Cannula O2 Flow Rate 2.0 2.0 2.0 12/17/18 12/17/18 12/17/18 12/17/18 05:32 06:32 07:00 07:48 Temp 98.1 98.1 Pulse 109 Resp 22 32 B/P (MAP) 113/90 (98) Pulse Ox 96 96 90 O2 Delivery Nasal Cannula Nasal Cannula Nasal Cannula Nasal Cannula O2 Flow Rate 2.0 2.0 2.0 12/17/18 12/17/18 12/17/18 12/17/18 08:43 08:44 11:00 15:00 Temp 97.7 98.2 97.7 98.2 Pulse 109 109 113 116 Resp 16 28 B/P (MAP) 113/90 113/90 121/67 (85) 102/61 (75) Pulse Ox 94 92 O2 Delivery Nasal Cannula Nasal Cannula O2 Flow Rate 2.0 2.0 12/17/18 12/17/18 12/17/18 17:17 19:38 20:15 Temp 98.5 98.5 Pulse 115 123 Resp 20 B/P (MAP) 100/53 91/60 (70) Pulse Ox 95 O2 Delivery Nasal Cannula Room Air O2 Flow Rate 2.0 Intake and Output 12/16/18 12/16/18 12/17/18 14:59 22:59 06:59 Intake Total 800 ml 1100 ml Output Total 700 ml Balance 800 ml 400 ml GRAYSON TIJERINA MD Dec 17, 2018 22:01
[2018-12-17 22:52] VITALS: BP 99/63
[2018-12-18] MEDS: LORazepam 0.5 MG TABLET PO PRN ×2 (01:25→21:21)
[2018-12-18 03:02] VITALS: BP 100/63
[2018-12-18 07:00] VITALS: BP 110/77
[2018-12-18] MEDS: LISINOPRIL 10 MG TABLET PO SCH (08:30)
[2018-12-18] MEDS: ASPIRIN CHEWABLE 81 MG TABLET. PO SCH (08:31)
[2018-12-18] MEDS: CARVEDILOL 3.125 MG TABLET. PO SCH ×2 (08:31→17:00)
[2018-12-18 10:53] VITALS: BP 102/59
--- NOTE | 2018-12-18 12:33 | PDOC ---
PROGRESS NOTES Subjective Subjective Chest pain resolved. Continues to complain of anxiety. Objective Objective Vital Signs Date Time Temp Pulse Resp B/P (MAP) Pulse Ox O2 Delivery O2 Flow Rate FiO2 12/18/18 10:53 98.2 116 24 102/59 (73) 95 Room Air 98.2 12/18/18 08:00 2.0 Intake and Output 12/18/18 07:00 Intake Total 500 ml Output Total 1000 ml Balance -500 ml Intake Oral 500 ml Output Urine Total 1000 ml Physical Exam Abdomen: Soft, No tenderness Heart: Regular rate (SR), Normal S1, Normal S2, Other (4/6 systolic apical murmur) Extremities: No cyanosis, No edema General: Alert, Oriented X3, No acute distress HEENT: Mucous membr. moist/pink Lungs: Clear to auscultation, Normal air movement Neuro: Normal speech Psych/Mental Status: Mental status NL, Mood NL Skin: No breakdown, No significant lesion Assessment Assessment 1. Acute CVA with left homonymous hemianopsia: right temporal/occipital. possible embolic in origin. Carotid arterial duplex scan did not show any significant carotid artery stenosis. Head CTA showed right MCA occlusion. Neurology team following. Plan for [facility] tomorrow to rule out intracardiac source of embolus. 2. Non-STEMI most probably demand ischemia/vasospasm perform cocaine use. Recent cardiac catheterization did not show any significant coronary artery disease. 3. Severe NICM, chronic systolic heart failure: recent EF at 25% no CAD per [facility], possibly cocaine/ETOH induced. Clinically well compensated. 4. Mod to severe MR 5. Hx of cocaine, binge ETOH, cocaine, Tobaccoism: Importance of complete cessation reemphasized 6. HTN: Well-controlled 7. Noncompliance: failed start of medication from discharge due to financial constraints. Plan Plan of Care Problems Medical Problems: (1) Homonymous bilateral field defects of left side Status: Acute (2) Ischemic stroke Status: Acute Comment Review of Relevant I have reviewed the following items reshma (where applicable) has been applied. Medications Current Medications Sertraline HCl (Zoloft) 25 mg QHS PO Last administered on 12/17/18at 20:49; Start 12/17/18 at 21:00 Vitals/I & O Vital Sign - Last 24 Hours 12/17/18 12/17/18 12/17/18 12/17/18 15:00 17:17 19:38 20:15 Temp 98.2 98.5 98.2 98.5 Pulse 116 115 123 Resp 28 20 B/P (MAP) 102/61 (75) 100/53 91/60 (70) Pulse Ox 92 95 O2 Delivery Nasal Cannula Nasal Cannula Room Air O2 Flow Rate 2.0 2.0 12/17/18 12/18/18 12/18/18 12/18/18 22:52 03:02 07:00 08:00 Temp 98.8 98.6 98.5 98.8 98.6 98.5 Pulse 118 118 118 Resp 16 18 24 B/P (MAP) 99/63 (75) 100/63 (75) 110/77 (88) Pulse Ox 95 93 92 O2 Delivery Room Air Room Air Room Air Room Air O2 Flow Rate 2.0 12/18/18 12/18/18 12/18/18 08:30 08:31 10:53 Temp 98.2 98.2 Pulse 118 118 116 Resp 24 B/P (MAP) 110/77 110/77 102/59 (73) Pulse Ox 95 O2 Delivery Room Air Intake and Output 12/17/18 12/17/18 12/18/18 15:00 23:00 07:00 Intake Total 200 ml 300 ml Output Total 1000 ml Balance 200 ml -700 ml DIANA MUNGUIA MD Dec 18, 2018 12:33
[2018-12-18 14:57] VITALS: BP 87/66
[2018-12-18] MEDS: ONDANSETRON PF 4 MG/2 ML VIAL. IV PRN (18:30)
--- NOTE | 2018-12-18 18:57 | PDOC ---
PROGRESS NOTES Chief Complaint Chief Complaint NSTEMI recent Acute right CVA, posterior occipital temporal area with mild surrounding edema but no midline shift, w. vision deficit acute systolic CHF cardiomyopathy EF 25% with clean LHC November 2018 Sober from cocaine since past admit Positive family history of heart disease-mother Accelerated hypertension POA anxiety disorder, insomnia History of Present Illness History of Present Illness anxiety better slept OK CV following, plan is for RITESH on wednesday Neuro following, cannot anticoag for NSTEMI due to recet CVA Vitals Vitals Vital Signs Date Time Temp Pulse Resp B/P (MAP) Pulse Ox O2 Delivery O2 Flow Rate FiO2 12/18/18 17:00 96 87/68 12/18/18 14:57 97.7 16 95 Room Air 97.7 12/18/18 08:00 2.0 Physical Exam General: Alert, Oriented X3, No acute distress Heart: Regular rate (SR), Normal S1, Normal S2, Other (4/6 systolic apical murmur) Lungs: Clear Abdomen: Soft, No tenderness Extremities: No cyanosis, No edema Skin: No breakdown, No significant lesion Review of Systems Review of Systems feels improved, no nv.d Assessment and Plan Assessmemt and Plan Problems Medical Problems: (1) Homonymous bilateral field defects of left side Status: Acute (2) Ischemic stroke Status: Acute Comment Review of Relevant I have reviewed the following items reshma (where applicable) has been applied. Labs Laboratory Tests Test 12/16/18 20:30 12/17/18 04:30 12/17/18 05:25 Troponin I Quantitative 2.845 ng/mL (0.000-0.055) 11.376 ng/mL (0.000-0.055) Urine Opiates Screen Pos (NEG) Urine Methadone Screen Neg (NEG) Urine Barbiturates Neg (NEG) Urine Phencyclidine Screen Neg (NEG) Urine Amphetamine/Methamphetamine Neg (NEG) Urine Benzodiazepines Screen Neg (NEG) Urine Cocaine Screen Neg (NEG) Urine Cannabinoids Screen Pos (NEG) Urine Ethyl Alcohol Neg (NEG) White Blood Count 12.5 x10^3/uL (4.0-11.0) Red Blood Count 4.55 x10^6/uL (4.30-5.70) Hemoglobin 13.0 g/dL (13.0-17.5) Hematocrit 40.6 % (39.0-53.0) Mean Corpuscular Volume 89 fL (79-100) Mean Corpuscular Hemoglobin 29 pg (25-35) Mean Corpuscular Hemoglobin Concent 32 g/dL (31-37) Red Cell Distribution Width 13.3 % (11.5-14.5) Platelet Count 307 x10^3/uL (140-400) Neutrophils (%) (Auto) 58 % (31-73) Lymphocytes (%) (Auto) 30 % (24-48) Monocytes (%) (Auto) 11 % (0-9) Eosinophils (%) (Auto) 0 % (0-3) Basophils (%) (Auto) 0 % (0-3) Neutrophils # (Auto) 7.2 x10^3uL (1.8-7.7) Lymphocytes # (Auto) 3.8 x10^3/uL (1.0-4.8) Monocytes # (Auto) 1.4 x10^3/uL (0.0-1.1) Eosinophils # (Auto) 0.1 x10^3/uL (0.0-0.7) Basophils # (Auto) 0.0 x10^3/uL (0.0-0.2) Sodium Level 134 mmol/L (136-145) Potassium Level 3.7 mmol/L (3.5-5.1) Chloride Level 100 mmol/L (98-107) Carbon Dioxide Level 22 mmol/L (21-32) Anion Gap 12 (6-14) Blood Urea Nitrogen 14 mg/dL (8-26) Creatinine 1.3 mg/dL (0.7-1.3) Estimated GFR (Cockcroft-Gault) 81.4 BUN/Creatinine Ratio 11 (6-20) Glucose Level 107 mg/dL (70-99) Calcium Level 8.9 mg/dL (8.5-10.1) Total Bilirubin 0.9 mg/dL (0.2-1.0) Aspartate Amino Transf (AST/SGOT) 146 U/L (15-37) Alanine Aminotransferase (ALT/SGPT) 79 U/L (16-63) Alkaline Phosphatase 90 U/L (46-116) Total Protein 6.6 g/dL (6.4-8.2) Albumin 3.0 g/dL (3.4-5.0) Albumin/Globulin Ratio 0.8 (1.0-1.7) Rheumatoid Factor <10.0 IU/mL (0.0-13.9) Medications Current Medications Aspirin (Children'S Aspirin) 162 mg DAILYWBKFT PO Last administered on 12/18/18at 08:31; Start 12/17/18 at 08:00 Atorvastatin Calcium (Lipitor) 20 mg QHS PO Last administered on 12/17/18at 20:49; Start 12/16/18 at 21:00 Carvedilol (Coreg) 3.125 mg BIDWMEALS PO Last administered on 12/18/18 08:31; Start 12/16/18 at 17:00 Acetaminophen (Tylenol) 500 mg PRN Q6HRS PRN PO MILD PAIN / TEMP; Start 12/16/18 at 16:00 Acetaminophen/ Codeine Phosphate (Tylenol #3) 1 tab PRN Q6HRS PRN PO MODERATE - SEVERE PAIN Last administered on 12/17/18at 05:32; Start 12/16/18 at 16:00 Ondansetron HCl (Zofran) 4 mg PRN Q6HRS PRN IV NAUSEA/VOMITING Last administered on 12/18/18at 18:30; Start 12/16/18 at 16:00 Clonidine HCl (Catapres) 0.1 mg PRN Q1HR PRN PO HYPERTENSION; Start 12/16/18 at 16:00; Stop 12/16/18 at 16:47; Status DC Diphenhydramine HCl (Benadryl) 25 mg PRN QHS PRN PO INSOMNIA; Start 12/16/18 at 16:00 Enalaprilat (Vasotec Inj) 1.25 mg Q6HRS IVP ; Start 12/16/18 at 17:00; Stop 12/16/18 at 17:00; Status DC Sacubitril/ Valsartan (Entresto 24 Mg-26 Mg) 1 tab BID PO ; Start 12/16/18 at 21:00; Stop 12/16/18 at 21:00; Status DC Carvedilol (Coreg) 3.125 mg BIDWMEALS PO ; Start 12/16/18 at 17:00; Stop 12/16/18 at 17:00; Status DC Labetalol HCl (Normodyne Iv Push) 10 mg PRN Q2HRS PRN IVP HYPERTENSION; Start 12/16/18 at 17:30 Lisinopril (Prinivil) 10 mg DAILY PO Last administered on 12/18/18at 08:30; Start 12/17/18 at 09:00 Lorazepam (Ativan Inj) 1 mg 1X ONCE IV Last administered on 12/16/18at 21:40; S tart 12/16/18 at 20:45; Stop 12/16/18 at 20:46; Status DC Iohexol (Omnipaque 350 Mg/ml) 100 ml 1X ONCE IV ; Start 12/16/18 at 21:00; Stop 12/16/18 at 21:01; Status DC Info (CONTRAST GIVEN -- Rx MONITORING) 1 each PRN DAILY PRN MC SEE COMMENTS; Start 12/16/18 at 21:00; Stop 12/18/18 at 20:59 Lorazepam (Ativan) 0.5 mg PRN Q8HRS PRN PO ANXIETY / AGITATION Last administered on 12/18/18at 01:25; Start 12/17/18 at 10:45 Sertraline HCl (Zoloft) 25 mg QHS PO Last administered on 12/17/18at 20:49; Start 12/17/18 at 21:00 Active Scripts Active Aspirin Ec (Aspirin) 81 Mg Tablet. 81 Mg PO DAILYWBKFT 30 Days Carvedilol (Carvedilol) 3.125 Mg Tablet 3.125 Mg PO BIDWMEALS 30 Days Atorvastatin Calcium 20 Mg Tablet 20 Mg PO QHS 30 Days Vitals/I & O Vital Sign - Last 24 Hours 12/17/18 12/17/18 12/17/18 12/18/18 19:38 20:15 22:52 03:02 Temp 98.5 98.8 98.6 98.5 98.8 98.6 Pulse 123 118 118 Resp 20 16 18 B/P (MAP) 91/60 (70) 99/63 (75) 100/63 (75) Pulse Ox 95 95 93 O2 Delivery Nasal Cannula Room Air Room Air Room Air O2 Flow Rate 2.0 12/18/18 12/18/18 12/18/18 12/18/18 07:00 08:00 08:30 08:31 Temp 98.5 98.5 Pulse 118 118 118 Resp 24 B/P (MAP) 110/77 (88) 110/77 110/77 Pulse Ox 92 O2 Delivery Room Air Room Air O2 Flow Rate 2.0 12/18/18 12/18/18 12/18/18 10:53 14:57 17:00 Temp 98.2 97.7 98.2 97.7 Pulse 116 117 96 Resp 24 16 B/P (MAP) 102/59 (73) 87/66 (73) 87/68 Pulse Ox 95 95 O2 Delivery Room Air Room Air Intake and Output 12/17/18 12/17/18 12/18/18 15:00 23:00 07:00 Intake Total 200 ml 300 ml Output Total 1000 ml Balance 200 ml -700 ml LES PEDRAZA MD Dec 18, 2018 18:57
[2018-12-18 19:20] VITALS: BP 84/66
[2018-12-18] MEDS: SERTRALINE 25 MG TABLET. PO SCH (21:21)
[2018-12-18] MEDS: ATORVASTATIN CALCIUM 20 MG TABLET PO SCH (21:21)
--- NOTE | 2018-12-18 22:44 | PDOC ---
PROGRESS NOTES Assessment 1. He suffered a stroke of his right hemisphere in the distribution of the middle cerebral artery which initially resulted in a left homonymous hemianopsia. This is improving and now he has a left upper outer quadrant visual field loss. He does not have sensory motor deficits, speech deficits or confusion. He feels the vision is still gradually improving. He does not complain of any new neurologic symptoms. 2. The CTA of the head was abnormal. 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 Fortunately, there is good collateral circulation and the vessel reconstitutes peripheral to the bifurcation. The radiologist feels this may be more of a chronic occlusion because of the collateral circulation. There is no evidence for vasculitis with the imaging. The neck vessels were normal. 3. He has a nonischemic cardiomyopathy with acute and chronic congestive heart failure. He has mitral regurgitation. He had a non-ST segment elevation myocardial infarction. The cause of this is not clear but could be related to drug usage. The last ejection fraction was 25%. It's not clear that there was an cardioembolic source causing the stroke. 4. He has hyperlipidemia. 5. He has hypertension. 6. He has a history of polysubstance abuse with the most recent usage one week prior to admission. Plan 1. I would recommend the use of aspirin as a stroke preventative. 2. I would recommend a statin to address the elevated cholesterol and CRP. 3. I would favor a transesophageal echocardiogram to make sure there is not a cardioembolic source. This has been ordered for December 19, 2018. He should eat nothing by mouth after midnight. He reports eating very little food today. His appetite is down. 4. He has been experiencing a great deal of anxiety. He was initiated on sertraline. I have made available lorazepam as needed as a temporary measure. Subjective I'm feeling pretty good. My vision seems to be getting a little better. I haven't had any numbness or weakness. I've been able to walk around without any difficulty in balance. I have any much today, haven't been hungry. I've had some milk to cope my stomach. Objective Vital Signs Date Time Temp Pulse Resp B/P (MAP) Pulse Ox O2 Delivery O2 Flow Rate FiO2 12/18/18 20:12 Room Air 12/18/18 19:20 98.7 120 18 84/66 (72) 94 98.7 12/18/18 08:00 2.0 Intake and Output 12/18/18 06:59 Intake Total 500 ml Output Total 1000 ml Balance -500 ml Intake Oral 500 ml Output Urine Total 1000 ml PHYSICAL EXAM He was alert, awake and cooperative. Speech was fluent and clear. He had a good fund of recent and remote knowledge. Attention and concentration was intact. He appeared well-groomed and well-nourished. The eyes were conjugate and face symmetric. Movements were symmetric and coordinated. Review of Relevant I have reviewed the following items reshma (where applicable) has been applied. Labs Laboratory Tests Test 12/17/18 04:30 12/17/18 05:25 Urine Opiates Screen Pos (NEG) Urine Methadone Screen Neg (NEG) Urine Barbiturates Neg (NEG) Urine Phencyclidine Screen Neg (NEG) Urine Amphetamine/Methamphetamine Neg (NEG) Urine Benzodiazepines Screen Neg (NEG) Urine Cocaine Screen Neg (NEG) Urine Cannabinoids Screen Pos (NEG) Urine Ethyl Alcohol Neg (NEG) White Blood Count 12.5 x10^3/uL (4.0-11.0) Red Blood Count 4.55 x10^6/uL (4.30-5.70) Hemoglobin 13.0 g/dL (13.0-17.5) Hematocrit 40.6 % (39.0-53.0) Mean Corpuscular Volume 89 fL (79-100) Mean Corpuscular Hemoglobin 29 pg (25-35) Mean Corpuscular Hemoglobin Concent 32 g/dL (31-37) Red Cell Distribution Width 13.3 % (11.5-14.5) Platelet Count 307 x10^3/uL (140-400) Neutrophils (%) (Auto) 58 % (31-73) Lymphocytes (%) (Auto) 30 % (24-48) Monocytes (%) (Auto) 11 % (0-9) Eosinophils (%) (Auto) 0 % (0-3) Basophils (%) (Auto) 0 % (0-3) Neutrophils # (Auto) 7.2 x10^3uL (1.8-7.7) Lymphocytes # (Auto) 3.8 x10^3/uL (1.0-4.8) Monocytes # (Auto) 1.4 x10^3/uL (0.0-1.1) Eosinophils # (Auto) 0.1 x10^3/uL (0.0-0.7) Basophils # (Auto) 0.0 x10^3/uL (0.0-0.2) Sodium Level 134 mmol/L (136-145) Potassium Level 3.7 mmol/L (3.5-5.1) Chloride Level 100 mmol/L (98-107) Carbon Dioxide Level 22 mmol/L (21-32) Anion Gap 12 (6-14) Blood Urea Nitrogen 14 mg/dL (8-26) Creatinine 1.3 mg/dL (0.7-1.3) Estimated GFR (Cockcroft-Gault) 81.4 BUN/Creatinine Ratio 11 (6-20) Glucose Level 107 mg/dL (70-99) Calcium Level 8.9 mg/dL (8.5-10.1) Total Bilirubin 0.9 mg/dL (0.2-1.0) Aspartate Amino Transf (AST/SGOT) 146 U/L (15-37) Alanine Aminotransferase (ALT/SGPT) 79 U/L (16-63) Alkaline Phosphatase 90 U/L (46-116) Troponin I Quantitative 11.376 ng/mL (0.000-0.055) Total Protein 6.6 g/dL (6.4-8.2) Albumin 3.0 g/dL (3.4-5.0) Albumin/Globulin Ratio 0.8 (1.0-1.7) Rheumatoid Factor <10.0 IU/mL (0.0-13.9) Medications Current Medications Aspirin (Children'S Aspirin) 162 mg DAILYWBKFT PO Last administered on 12/18/18at 08:31; Start 12/17/18 at 08:00 Atorvastatin Calcium (Lipitor) 20 mg QHS PO Last administered on 12/18/18at 21:21; Start 12/16/18 at 21:00 Carvedilol (Coreg) 3.125 mg BIDWMEALS PO Last administered on 12/18/18at 08:31; Start 12/16/18 at 17:00 Acetaminophen (Tylenol) 500 mg PRN Q6HRS PRN PO MILD PAIN / TEMP; Start 12/16/18 at 16:00 Acetaminophen/ Codeine Phosphate (Tylenol #3) 1 tab PRN Q6HRS PRN PO MODERATE - SEVERE PAIN Last administered on 12/17/18at 05:32; Start 12/16/18 at 16:00 Ondansetron HCl (Zofran) 4 mg PRN Q6HRS PRN IV NAUSEA/VOMITING Last administered on 12/18/18at 18:30; Start 12/16/18 at 16:00 Clonidine HCl (Catapres) 0.1 mg PRN Q1HR PRN PO HYPERTENSION; Start 12/16/18 at 16:00; Stop 12/16/18 at 16:47; Status DC Diphenhydramine HCl (Benadryl) 25 mg PRN QHS PRN PO INSOMNIA; Start 12/16/18 at 16:00 Enalaprilat (Vasotec Inj) 1.25 mg Q6HRS IVP ; Start 12/16/18 at 17:00; Stop 12/16/18 at 17:00; Status DC Sacubitril/ Valsartan (Entresto 24 Mg-26 Mg) 1 tab BID PO ; Start 12/16/18 at 21 :00; Stop 12/16/18 at 21:00; Status DC Carvedilol (Coreg) 3.125 mg BIDWMEALS PO ; Start 12/16/18 at 17:00; Stop 12/16/18 at 17:00; Status DC Labetalol HCl (Normodyne Iv Push) 10 mg PRN Q2HRS PRN IVP HYPERTENSION; Start 12/16/18 at 17:30 Lisinopril (Prinivil) 10 mg DAILY PO Last administered on 12/18/18at 08:30; Start 12/17/18 at 09:00 Lorazepam (Ativan Inj) 1 mg 1X ONCE IV Last administered on 12/16/18at 21:40; Start 12/16/18 at 20:45; Stop 12/16/18 at 20:46; Status DC Iohexol (Omnipaque 350 Mg/ml) 100 ml 1X ONCE IV ; Start 12/16/18 at 21:00; Stop 12/16/18 at 21:01; Status DC Info (CONTRAST GIVEN -- Rx MONITORING) 1 each PRN DAILY PRN MC SEE COMMENTS; Start 12/16/18 at 21:00; Stop 12/18/18 at 20:59; Status DC Lorazepam (Ativan) 0.5 mg PRN Q8HRS PRN PO ANXIETY / AGITATION Last administered on 12/18/18at 21:21; Start 12/17/18 at 10:45 Sertraline HCl (Zoloft) 25 mg QHS PO Last administered on 12/18/18at 21:21; Start 12/17/18 at 21:00 Active Scripts Active Aspirin Ec (Aspirin) 81 Mg Tablet.dr 81 Mg PO DAILYWBKFT 30 Days Carvedilol (Carvedilol) 3.125 Mg Tablet 3.125 Mg PO BIDWMEALS 30 Days Atorvastatin Calcium 20 Mg Tablet 20 Mg PO QHS 30 Days Vitals/I & O Vital Sign - Last 24 Hours 12/17/18 12/18/18 12/18/18 12/18/18 22:52 03:02 07:00 08:00 Temp 98.8 98.6 98.5 98.8 98.6 98.5 Pulse 118 118 118 Resp 16 18 24 B/P (MAP) 99/63 (75) 100/63 (75) 110/77 (88) Pulse Ox 95 93 92 O2 Delivery Room Air Room Air Room Air Room Air O2 Flow Rate 2.0 12/18/18 12/18/18 12/18/18 12/18/18 08:30 08:31 10:53 14:57 Temp 98.2 97.7 98.2 97.7 Pulse 118 118 116 117 Resp 24 16 B/P (MAP) 110/77 110/77 102/59 (73) 87/66 (73) Pulse Ox 95 95 O2 Delivery Room Air Room Air 12/18/18 12/18/18 12/18/18 17:00 19:20 20:12 Temp 98.7 98.7 Pulse 96 120 Resp 18 B/P (MAP) 87/68 84/66 (72) Pulse Ox 94 O2 Delivery Room Air Room Air Intake and Output 12/17/18 12/17/18 12/18/18 14:59 22:59 06:59 Intake Total 200 ml 300 ml Output Total 1000 ml Balance 200 ml -700 ml GRAYSON TIJERINA MD Dec 18, 2018 22:44
[2018-12-18 22:45] VITALS: BP 86/72
[2018-12-19] VITALS (18 sets, daily range): BP systolic 73–116; BP diastolic 54–73
[2018-12-19] MEDS: LISINOPRIL 10 MG TABLET PO SCH (07:59)
[2018-12-19] MEDS: ASPIRIN CHEWABLE 81 MG TABLET. PO SCH (07:59)
[2018-12-19] MEDS: CARVEDILOL 3.125 MG TABLET. PO SCH ×2 (08:00→17:00)
--- NOTE | 2018-12-19 08:23 | PDOC ---
PROGRESS NOTES Chief Complaint Chief Complaint NSTEMI - demand ischemia/vasospasm perform cocaine use. Recent cardiac catheterization did not show any significant coronary artery disease. acute systolic CHF cardiomyopathy EF 25% with clean C November 2018. 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 possible embolic in origin. Carotid arterial duplex scan did not show any significant carotid artery stenosis. Head CTA showed right MCA occlusion. Neurology team following. Plan for RITESH today to rule out intracardiac source of embolus. Mod to severe MR Binge ETOH Tobaccoism Compliance difficulties - failed start of medication from discharge due to financial constraints. History of Present Illness History of Present Illness anxiety better slept OK CV following, plan is for RITESH now Neuro following, cannot anticoag for NSTEMI due to recent CVA. ASA high dose ok per d/w neuro as well as high intensity statin Vitals Vitals Vital Signs Date Time Temp Pulse Resp B/P (MAP) Pulse Ox O2 Delivery O2 Flow Rate FiO2 12/19/18 08:00 114 108/73 12/19/18 07:00 98.3 24 98 Room Air 98.3 12/18/18 08:00 2.0 Physical Exam General: Alert, Oriented X3, No acute distress Heart: Regular rate (SR), Normal S1, Normal S2, Other (4/6 systolic apical murmur) Lungs: Clear Abdomen: Soft, No tenderness Extremities: No cyanosis, No edema Skin: No breakdown, No significant lesion Assessment and Plan Assessmemt and Plan Problems Medical Problems: (1) Homonymous bilateral field defects of left side Status: Acute (2) Ischemic stroke Status: Acute Comment Review of Relevant I have reviewed the following items reshma (where applicable) has been applied. Medications Current Medications Aspirin (Children'S Aspirin) 162 mg DAILYWBKFT PO Last administered on 12/19/18at 07:59; Start 12/17/18 at 08:00 Atorvastatin Calcium (Lipitor) 20 mg QHS PO Last administered on 12/18/18at 21:21; Start 12/16/18 at 21:00 Carvedilol (Coreg) 3.125 mg BIDWMEALS PO Last administered on 12/19/18at 08:00; Start 12/16/18 at 17:00 Acetaminophen (Tylenol) 500 mg PRN Q6HRS PRN PO MILD PAIN / TEMP; Start 12/16/18 at 16:00 Acetaminophen/ Codeine Phosphate (Tylenol #3) 1 tab PRN Q6HRS PRN PO MODERATE - SEVERE PAIN Last administered on 12/17/18at 05:32; Start 12/16/18 at 16:00 Ondansetron HCl (Zofran) 4 mg PRN Q6HRS PRN IV NAUSEA/VOMITING Last administered on 12/18/18at 18:30; Start 12/16/18 at 16:00 Clonidine HCl (Catapres) 0.1 mg PRN Q1HR PRN PO HYPERTENSION; Start 12/16/18 at 16:00; Stop 12/16/18 at 16:47; Status DC Diphenhydramine HCl (Benadryl) 25 mg PRN QHS PRN PO INSOMNIA; Start 12/16/18 at 16:00 Enalaprilat (Vasotec Inj) 1.25 mg Q6HRS IVP ; Start 12/16/18 at 17:00; Stop 12/16/18 at 17:00; Status DC Sacubitril/ Valsartan (Entresto 24 Mg-26 Mg) 1 tab BID PO ; Start 12/16/18 at 21:00; Stop 12/16/18 at 21:00; Status DC Carvedilol (Coreg) 3.125 mg BIDWMEALS PO ; Start 12/16/18 at 17:00; Stop 12/16/18 at 17:00; Status DC Labetalol HCl (Normodyne Iv Push) 10 mg PRN Q2HRS PRN IVP HYPERTENSION; Start 12/16/18 at 17:30 Lisinopril (Prinivil) 10 mg DAILY PO Last administered on 12/19/18at 07:59; Start 12/17/18 at 09:00 Lorazepam (Ativan Inj) 1 mg 1X ONCE IV Last administered on 12/16/18at 21:40; Start 12/16/18 at 20:45; Stop 12/16/18 at 20:46; Status DC Iohexol (Omnipaque 350 Mg/ml) 100 ml 1X ONCE IV ; Start 12/16/18 at 21:00; Stop 12/16/18 at 21:01; Status DC Info (CONTRAST GIVEN -- Rx MONITORING) 1 each PRN DAILY PRN MC SEE COMMENTS; Start 12/16/18 at 21:00; Stop 12/18/18 at 20:59; Status DC Lorazepam (Ativan) 0.5 mg PRN Q8HRS PRN PO ANXIETY / AGITATION Last administered on 12/18/18at 21:21; Start 12/17/18 at 10:45 Sertraline HCl (Zoloft) 25 mg QHS PO Last administered on 12/18/18at 21:21; Start 12/17/18 at 21:00 Active Scripts Active Aspirin Ec (Aspirin) 81 Mg Tablet. 81 Mg PO DAILYWBKFT 30 Days Carvedilol (Carvedilol) 3.125 Mg Tablet 3.125 Mg PO BIDWMEALS 30 Days Atorvastatin Calcium 20 Mg Tablet 20 Mg PO QHS 30 Days Vitals/I & O Vital Sign - Last 24 Hours 12/18/18 12/18/18 12/18/18 12/18/18 08:30 08:31 10:53 14:57 Temp 98.2 97.7 98.2 97.7 Pulse 118 118 116 117 Resp 24 16 B/P (MAP) 110/77 110/77 102/59 (73) 87/66 (73) Pulse Ox 95 95 O2 Delivery Room Air Room Air 12/18/18 12/18/18 12/18/18 12/18/18 17:00 19:20 20:12 22:45 Temp 98.7 98.8 98.7 98.8 Pulse 96 120 116 Resp 18 18 B/P (MAP) 87/68 84/66 (72) 86/72 (77) Pulse Ox 94 95 O2 Delivery Room Air Room Air Room Air 12/19/18 12/19/18 12/19/18 12/19/18 03:05 07:00 07:59 08:00 Temp 98.0 98.3 98.0 98.3 Pulse 113 113 114 114 Resp 18 24 B/P (MAP) 116/67 (83) 108/73 (85) 108/73 108/73 Pulse Ox 96 98 O2 Delivery Room Air Room Air Intake and Output 12/18/18 12/18/18 12/19/18 15:00 23:00 07:00 Intake Total 600 ml Output Total 200 ml Balance -200 ml 600 ml Images MRI - A fairly large area of acute ischemia/infarction is seen involving portions of the posterior right temporal/occipital lobe. There is surrounding edema and associated mass effect without evidence of midline shift. A small area of acute ischemia/infarction is seen involving the right medial parietal lobe. LUKASZ RICHARDS MD Dec 19, 2018 08:23
--- NOTE | 2018-12-19 10:14 | PDOC ---
PROGRESS NOTES Subjective Subjective Denied any chest pain today Objective Objective Vital Signs Date Time Temp Pulse Resp B/P (MAP) Pulse Ox O2 Delivery O2 Flow Rate FiO2 12/19/18 08:00 Room Air 12/19/18 08:00 114 108/73 12/19/18 07:00 98.3 24 98 98.3 12/18/18 08:00 2.0 Intake and Output 12/19/18 07:00 Intake Total 600 ml Output Total 200 ml Balance 400 ml Intake Oral 600 ml Emesis 200 ml Physical Exam Abdomen: Soft, No tenderness Heart: Regular rate (SR), Normal S1, Normal S2, Other (4/6 systolic apical murmur) Extremities: No cyanosis, No edema General: Alert, Oriented X3, No acute distress HEENT: Mucous membr. moist/pink Lungs: Clear to auscultation, Normal air movement Neuro: Normal speech Psych/Mental Status: Mental status NL, Mood NL Skin: No breakdown, No significant lesion Assessment Assessment 1. Acute CVA with left homonymous hemianopsia: right temporal/occipital. possible embolic in origin. Carotid arterial duplex scan did not show any significant carotid artery stenosis. Head CTA showed right MCA occlusion. Neurology team following. Plan for RITESH today to rule out intracardiac source of embolus. 2. Non-STEMI most probably demand ischemia/vasospasm perform cocaine use. Recent cardiac catheterization did not show any significant coronary artery disease. 3. Severe NICM, chronic systolic heart failure: recent EF at 25% no CAD per [facility], possibly cocaine/ETOH induced. Clinically well compensated. 4. Mod to severe MR 5. Hx of cocaine, binge ETOH, cocaine, Tobaccoism: Importance of complete cessation reemphasized 6. HTN: Well-controlled 7. Noncompliance: failed start of medication from discharge due to financial constraints. Plan Plan of Care Problems Medical Problems: (1) Homonymous bilateral field defects of left side Status: Acute (2) Ischemic stroke Status: Acute Comment Review of Relevant I have reviewed the following items reshma (where applicable) has been applied. Vitals/I & O Vital Sign - Last 24 Hours 12/18/18 12/18/18 12/18/18 12/18/18 10:53 14:57 17:00 19:20 Temp 98.2 97.7 98.7 98.2 97.7 98.7 Pulse 116 117 96 120 Resp 24 16 18 B/P (MAP) 102/59 (73) 87/66 (73) 87/68 84/66 (72) Pulse Ox 95 95 94 O2 Delivery Room Air Room Air Room Air 12/18/18 12/18/18 12/19/18 12/19/18 20:12 22:45 03:05 07:00 Temp 98.8 98.0 98.3 98.8 98.0 98.3 Pulse 116 113 113 Resp 18 18 24 B/P (MAP) 86/72 (77) 116/67 (83) 108/73 (85) Pulse Ox 95 96 98 O2 Delivery Room Air Room Air Room Air Room Air 12/19/18 12/19/18 12/19/18 07:59 08:00 08:00 Pulse 114 114 B/P (MAP) 108/73 108/73 O2 Delivery Room Air Intake and Output 12/18/18 12/18/18 12/19/18 15:00 23:00 07:00 Intake Total 600 ml Output Total 200 ml Balance -200 ml 600 ml DIANA MUNGUIA MD Dec 19, 2018 10:14
[2018-12-19] MEDS ORDERED: BENZOCAINE ONE 20% MUCOSAL SPRAY. MM (10:30)
[2018-12-19] MEDS ORDERED: LIDOCAINE 2% TOPICAL JELLY 30GM TUBE. TP ONE (10:30)
[2018-12-19] MEDS ORDERED: LIDOCAINE 2% VISCOUS 15 ML SOLUTION. SWSW ONE (10:30)
[2018-12-19] MEDS ORDERED: PROPOFOL 20 ML IV ONE (10:50)
[2018-12-19] MEDS ORDERED: PROPOFOL 50 ML IV ONE (10:57)
[2018-12-19] MEDS: ONDANSETRON PF 4 MG/2 ML VIAL. IV PRN ×2 (11:31→19:44)
--- NOTE | 2018-12-19 13:12 | NUR ---
SS following for discharge planning. SS reviewed pt chart. Pt is from home and is currently on room air. Pt having RITESH today. Pt is self pay pt. HCFS following for self pay status.
[2018-12-19] MEDS: ACETAMINOPHEN/CODEINE 300/30MG TABLET. PO PRN (14:08)
[2018-12-19] MEDS: IV RINGERS,LACTATED 1000ML 1,000 ML IV SCH (14:08)
[2018-12-19 14:55] LABS: CARDIOLIPIN ANTIBODIES SEE SEPARATE REPORT
[2018-12-19 14:56] LABS: LUPUS ANTICOAGULANT SEE SEPARATE REPORT
--- NOTE | 2018-12-19 15:41 | NUR ---
SS following up with discharge planning. Pt and pt's mother stating that pt is covered under mother's insurance. HCFS, Dayanara Whaley, met with pt's mother and pt's mother provided Dayanara with insurance card. Dayanara contacted SS and notified SS that the insurance card has not been active since 07/2017. Pt's RN notified.
--- NOTE | 2018-12-19 16:53 | PDOC ---
PROGRESS NOTES Assessment Assessment Left eye visual field deficits since 12/16/18. Large right posterior temporal and occipital lobe and small medial parietal lobe infarcts. Right MCA M1 segmental occlusion, chronic likely. CHF. Cocaine positive in 11/27. Marijuana positive continued. Opiate positive. HLD. Over weight. RECOMMENDATIONS/PLAN: ASA 325 mg daily. Lipitor HS. Further cardiac evaluation. Patient education for illicit drug abstinence. Subjective: Left eye visual field cur not able to see objects well in his left side since 12/16/18. PAST MEDICAL HISTORY Has not seen PCP for several years. PAST SURGICAL HISTORY No major surgery recently. FAMILY HISTORY Heart Disease (mother) SOCIAL HISTORY Smoke: <1 pack per day ALCOHOL: From time to time. Drugs: Marijuana, Cocaine (stated stopped it recently). Lives: with Family ALLERGY: NKDA MEDICATIONS: Refer to MAR REVIEW OF SYSTEMS: Constitutional: Obesity. Head: No traumatic brain or head injury. Skin: No edema, or rash. Ear: No infection. Eyes: No vision loss or color blindness. Nose: No bleeding or purulent discharges. Hearing: No hearing decrease. Neck: No injury. Cardiac: No [place], arrhythmia. Pulmonary: Smoking. GI: No GI ulcer, GI bleeding. Urinary/genital: No dysuria, incontinence, urinary retention. Endocrinologic: Obesity. Skeletomuscular: No muscular atrophy. Neurological: see HP. Psychiatric: Substance and drug use/abuse. Otherwise, not [id number] review of systems. PHYSICAL EXAMINATION: General appearance is in no acute distress. HEENT: Normocephalic and nontraumatic. Eyes, nose, ears, and throat are unremarkable. Neck is supple. No lymphadenopathy. No bruits are heard over the carotid artery. No crepitus. Cardiovascular: S1, S2, seemed irregular rate and rhythm. Pulmonary: Clear to auscultation bilaterally. Abdomen: Bowel sounds are positive. Abdomen is soft, nontender, and nondistended. Extremities: No rash, lesions, or edema. No restriction of range of motion NEUROLOGICAL EXAMINATION: Alert Oriented to time, place and person. PERRL. Left eye temporal visual field defect. EOMI. CN: no focal findings. Muscle tone: within normal. Muscle strength: 5 DTR: 2 Plantar reflex: Flexor response bilaterally Gait: Not examined in bed but stated walking normally. Sensory exam: no abnormal findings. No cerebellar signs elicited. F-T-N test accurate. No pronator drift after 10 seconds. No leg drop after 10 seconds lifting. Objective Objective Vital Signs Date Time Temp Pulse Resp B/P (MAP) Pulse Ox O2 Delivery O2 Flow Rate FiO2 12/19/18 15:09 109 96/63 (74) 12/19/18 15:08 96 Nasal Cannula 12/19/18 15:00 97.4 18 97.4 12/19/18 14:08 2.0 Intake and Output 12/19/18 07:00 Intake Total 600 ml Output Total 200 ml Balance 400 ml Intake Oral 600 ml Emesis 200 ml Vitals Signs Vitals VS - Last 72 Hours, by Label Date Time Temp Pulse Resp B/P (MAP) Pulse Ox O2 Delivery O2 Flow Rate FiO2 12/19/18 15:09 109 96/63 (74) 12/19/18 15:08 96 Nasal Cannula 12/19/18 15:00 97.4 112 18 84/70 (75) 96 Room Air 97.4 12/19/18 14:54 107 18 98/64 (75) 96 Room Air 12/19/18 14:24 110 18 94/65 (75) 96 Room Air 12/19/18 14:09 112 18 84/70 (75) 96 Room Air 12/19/18 14:08 96 Room Air 2.0 12/19/18 13:54 112 18 73/58 (63) 96 Room Air 12/19/18 13:24 108 18 89/54 (66) 96 Room Air 12/19/18 12:39 110 18 102/61 (75) 96 Room Air 12/19/18 12:34 113 18 84/63 (70) 96 Room Air 12/19/18 12:08 98.3 108 22 88/56 93 Room Air 98.3 12/19/18 11:53 108 21 95/53 95 Room Air 12/19/18 11:38 97.6 110 22 97/62 94 Room Air 97.6 12/19/18 11:23 97.6 114 24 96/55 97 Nasal Cannula 2 97.6 12/19/18 11:20 Nasal Cannula 3 12/19/18 11:17 97.6 114 22 114/68 93 Nasal Cannula 3 97.6 12/19/18 11:09 97.6 108 24 123/60 95 Nasal Cannula 6 97.6 12/19/18 11:00 97.6 111 18 96/61 (73) 100 Room Air 97.6 12/19/18 10:52 98.4 111 15 93/69 96 Room Air 98.4 12/19/18 08:00 Room Air 12/19/18 08:00 114 108/73 12/19/18 07:59 114 108/73 12/19/18 07:00 98.3 113 24 108/73 (85) 98 Room Air 98.3 12/19/18 03:05 98.0 113 18 116/67 (83) 96 Room Air 98.0 12/18/18 22:45 98.8 116 18 86/72 (77) 95 Room Air 98.8 12/18/18 20:12 Room Air 12/18/18 19:20 98.7 120 18 84/66 (72) 94 Room Air 98.7 12/18/18 17:00 96 87/68 12/18/18 14:57 97.7 117 16 87/66 (73) 95 Room Air 97.7 12/18/18 10:53 98.2 116 24 102/59 (73) 95 Room Air 98.2 12/18/18 08:31 118 110/77 12/18/18 08:30 118 110/77 12/18/18 08:00 Room Air 2.0 12/18/18 07:00 98.5 118 24 110/77 (88) 92 Room Air 98.5 Medication Medications Current Medications Aspirin (Children'S Aspirin) 324 mg DAILYWBKFT PO ; Start 12/20/18 at 08:00 Atorvastatin Calcium (Lipitor) 40 mg QHS PO ; Start 12/19/18 at 21:00 Benzocaine (Hurricaine One) 3 spray 1X ONCE MM ; Start 12/19/18 at 10:30; Stop 12/19/18 at 10:33; Status DC Lidocaine HCl (Viscous Lidocaine) 15 ml 1X ONCE SWSW ; Start 12/19/18 at 10:30; Stop 12/19/18 at 10:33; Status DC Lidocaine HCl (Xylocaine 2% Topical 30gm Tube) 1 donna 1X ONCE TP ; Start 12/19/18 at 10:30; Stop 12/19/18 at 10:33; Status DC Propofol 20 ml @ As Directed STK-MED ONCE IV ; Start 12/19/18 at 10:50; Stop 12/19/18 at 10:51; Status DC Propofol 50 ml @ As Directed STK-MED ONCE IV ; Start 12/19/18 at 10:57; Stop 12/19/18 at 10:58; Status DC Ringer's Solution 1,000 ml @ 75 mls/hr [id number] IV Last administered on 12/19/18at 14:08; Start 12/19/18 at 13:15 Comment Review of Relevant I have reviewed the following items reshma (where applicable) has been applied. DENISE REYES MD Dec 19, 2018 16:53
[2018-12-19] MEDS ORDERED: PHENOL ORAL SPRAY 177ML BOTTLE. PO PRN (19:30)
[2018-12-19] MEDS: BENZOCAINE/MENTHOL LOZENGE. PO PRN (19:43)
[2018-12-19] MEDS: LORazepam 0.5 MG TABLET PO PRN (19:44)
[2018-12-19] MEDS: SERTRALINE 25 MG TABLET. PO SCH (19:44)
[2018-12-19] MEDS ORDERED: ATORVASTATIN CALCIUM 20 MG TABLET PO SCH (21:00)
[2018-12-20] MEDS: IV RINGERS,LACTATED 1000ML 1,000 ML IV SCH (02:35)
[2018-12-20 02:55] VITALS: BP 102/67
[2018-12-20] MEDS: BENZOCAINE/MENTHOL LOZENGE. PO PRN ×2 (03:03→08:50)
[2018-12-20 07:00] VITALS: BP 102/62
[2018-12-20] MEDS ORDERED: ASPIRIN CHEWABLE 81 MG TABLET. PO SCH (08:00)
--- NOTE | 2018-12-20 08:07 | PDOC ---
PROGRESS NOTES Chief Complaint Chief Complaint NSTEMI - demand ischemia/vasospasm perform cocaine use. Recent cardiac catheterization did not show any significant coronary artery disease. acute systolic CHF cardiomyopathy EF 25% with clean C November 2018. 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 possible embolic in origin. Carotid arterial duplex scan did not show any significant carotid artery stenosis. Head CTA showed right MCA occlusion. Neurology team following. Plan for RITESH today to rule out intracardiac source of embolus. Mod to severe MR Binge ETOH Tobaccoism Compliance difficulties - failed start of medication from discharge due to financial constraints. History of Present Illness History of Present Illness anxiety better slept OK CV following, S/p RITESH on 12/19/18 Neuro following, cannot anticoag for NSTEMI due to recent CVA. ASA high dose ok per d/w neuro as well as high intensity statin Left eye visual field deficits since 12/16/18. Large right posterior temporal and occipital lobe and small medial parietal lobe infarcts. Right MCA M1 segmental occlusion, chronic likely. CHF. Cocaine positive in 11/27. Marijuana positive continued. Opiate positive. HLD. Over weight. Plan: ASA 325 mg daily. Lipitor HS. Further cardiac evaluation. Patient education for illicit drug abstinence. 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 Vitals Vitals Vital Signs Date Time Temp Pulse Resp B/P (MAP) Pulse Ox O2 Delivery O2 Flow Rate FiO2 12/20/18 07:52 Room Air 12/20/18 02:55 97.6 110 18 102/67 (79) 94 97.6 12/19/18 20:00 2.0 Physical Exam General: Alert, Oriented X3, No acute distress Heart: Regular rate (SR), Normal S1, Normal S2, Other (4/6 systolic apical murmur) Lungs: Clear Abdomen: Soft, No tenderness Extremities: No cyanosis, No edema Skin: No breakdown, No significant lesion Assessment and Plan Assessmemt and Plan Problems Medical Problems: (1) Homonymous bilateral field defects of left side Status: Acute (2) Ischemic stroke Status: Acute Comment Review of Relevant I have reviewed the following items reshma (where applicable) has been applied. Medications Current Medications Aspirin (Children'S Aspirin) 162 mg DAILYWBKFT PO Last administered on 12/19/18at 07:59; Start 12/17/18 at 08:00; Stop 12/19/18 at 13:23; Status DC Atorvastatin Calcium (Lipitor) 20 mg QHS PO Last administered on 12/18/18at 21:21; Start 12/16/18 at 21:00; Stop 12/19/18 at 13:23; Status DC Carvedilol (Coreg) 3.125 mg BIDWMEALS PO Last administered on 12/19/18at 08:00; Start 12/16/18 at 17:00 Acetaminophen (Tylenol) 500 mg PRN Q6HRS PRN PO MILD PAIN / TEMP; Start 12/16/18 at 16:00 Acetaminophen/ Codeine Phosphate (Tylenol #3) 1 tab PRN Q6HRS PRN PO MODERATE - SEVERE PAIN Last administered on 12/19/18at 14:08; Start 12/16/18 at 16:00 Ondansetron HCl (Zofran) 4 mg PRN Q6HRS PRN IV NAUSEA/VOMITING Last administered on 12/19/18at 19:44; Start 12/16/18 at 16:00 Clonidine HCl (Catapres) 0.1 mg PRN Q1HR PRN PO HYPERTENSION; Start 12/16/18 at 16:00; Stop 12/16/18 at 16:47; Status DC Diphenhydramine HCl (Benadryl) 25 mg PRN QHS PRN PO INSOMNIA; Start 12/16/18 at 16:00 Enalaprilat (Vasotec Inj) 1.25 mg Q6HRS IVP ; Start 12/16/18 at 17:00; Stop 12/16/18 at 17:00; Status DC Sacubitril/ Valsartan (Entresto 24 Mg-26 Mg) 1 tab BID PO ; Start 12/16/18 at 21:00; Stop 12/16/18 at 21:00; Status DC Carvedilol (Coreg) 3.125 mg BIDWMEALS PO ; Start 12/16/18 at 17:00; Stop 12/16/18 at 17:00; Status DC Labetalol HCl (Normodyne Iv Push) 10 mg PRN Q2HRS PRN IVP HYPERTENSION; Start 12/16/18 at 17:30 Lisinopril (Prinivil) 10 mg DAILY PO Last administered on 12/19/18at 07:59; Start 12/17/18 at 09:00 Lorazepam (Ativan Inj) 1 mg 1X ONCE IV Last administered on 12/16/18at 21:40; Start 12/16/18 at 20:45; Stop 12/16/18 at 20:46; Status DC Iohexol (Omnipaque 350 Mg/ml) 100 ml 1X ONCE IV ; Start 12/16/18 at 21:00; Stop 12/16/18 at 21:01; Status DC Info (CONTRAST GIVEN -- Rx MONITORING) 1 each PRN DAILY PRN MC SEE COMMENTS; Start 12/16/18 at 21:00; Stop 12/18/18 at 20:59; Status DC Lorazepam (Ativan) 0.5 mg PRN Q8HRS PRN PO ANXIETY / AGITATION Last administered on 12/19/18at 19:44; Start 12/17/18 at 10:45 Sertraline HCl (Zoloft) 25 mg QHS PO Last administered on 12/19/18at 19:44; Start 12/17/18 at 21:00 Benzocaine (Hurricaine One) 3 spray 1X ONCE MM ; Start 12/19/18 at 10:30; Stop 12/19/18 at 10:33; Status DC Lidocaine HCl (Viscous Lidocaine) 15 ml 1X ONCE SWSW ; Start 12/19/18 at 10:30; Stop 12/19/18 at 10:33; Status DC Lidocaine HCl (Xylocaine 2% Topical 30gm Tube) 1 donna 1X ONCE TP ; Start 12/19/18 at 10:30; Stop 12/19/18 at 10:33; Status DC Propofol 20 ml @ As Directed STK-MED ONCE IV ; Start 12/19/18 at 10:50; Stop 12/19/18 at 10:51; Status DC Propofol 50 ml @ As Directed STK-MED ONCE IV ; Start 12/19/18 at 10:57; Stop 12/19/18 at 10:58; Status DC Ringer's Solution 1,000 ml @ 75 mls/hr [id number] IV Last administered on 12/19/18at 14:08; Start 12/19/18 at 13:15 Aspirin (Children'S Aspirin) 324 mg DAILYWBKFT PO ; Start 12/20/18 at 08:00 Atorvastatin Calcium (Lipitor) 40 mg QHS PO Last administered on 12/19/18at 19:44; Start 12/19/18 at 21:00 Throat Lozenges (Cepacol Sore Throat Lozenge) 1 abraham PRN Q2HRS PRN PO SORE THROAT Last administered on 12/20/18at 03:03; Start 12/19/18 at 19:30 Throat Lozenges (Chloraseptic) 1 spray PRN Q2HR PRN PO SORE THROAT, 2ND CHOICE; Start 12/19/18 at 19:30 Active Scripts Active Aspirin Ec (Aspirin) 81 Mg Tablet.dr 81 Mg PO DAILYWBKFT 30 Days Carvedilol (Carvedilol) 3.125 Mg Tablet 3.125 Mg PO BIDWMEALS 30 Days Atorvastatin Calcium 20 Mg Tablet 20 Mg PO QHS 30 Days Vitals/I & O Vital Sign - Last 24 Hours 12/19/18 12/19/18 12/19/18 12/19/18 10:52 11:00 11:09 11:17 Temp 98.4 97.6 97.6 97.6 98.4 97.6 97.6 97.6 Pulse 111 111 108 114 Resp 15 B/P (MAP) 93/69 96/61 (73) 123/60 114/68 Pulse Ox 96 100 95 93 O2 Delivery Room Air Room Air Nasal Cannula Nasal Cannula O2 Flow Rate 6 3 12/19/18 12/19/18 12/19/18 12/19/18 11:20 11:23 11:38 11:53 Temp 97.6 97.6 97.6 97.6 Pulse 114 110 108 Resp B/P (MAP) 96/55 97/62 95/53 Pulse Ox 97 94 95 O2 Delivery Nasal Cannula Nasal Cannula Room Air Room Air O2 Flow Rate 3 2 12/19/18 12/19/18 12/19/18 12/19/18 12:08 12:34 12:39 13:24 Temp 98.3 98.3 Pulse 108 113 110 108 Resp B/P (MAP) 88/56 84/63 (70) 102/61 (75) 89/54 (66) Pulse Ox 93 96 96 96 O2 Delivery Room Air Room Air Room Air Room Air 12/19/18 12/19/18 12/19/18 12/19/18 13:54 14:08 14:09 14:24 Pulse 112 112 110 Resp 18 18 18 B/P (MAP) 73/58 (63) 84/70 (75) 94/65 (75) Pulse Ox 96 96 96 96 O2 Delivery Room Air Room Air Room Air Room Air O2 Flow Rate 2.0 12/19/18 12/19/18 12/19/18 12/19/18 14:54 15:00 15:08 15:09 Temp 97.4 97.4 Pulse 107 112 109 Resp 18 18 B/P (MAP) 98/64 (75) 84/70 (75) 96/63 (74) Pulse Ox 96 96 96 O2 Delivery Room Air Room Air Nasal Cannula 12/19/18 12/19/18 12/19/18 12/19/18 16:00 17:24 19:15 20:00 Temp 97.9 97.9 Pulse 109 106 119 Resp 22 B/P (MAP) 81/56 (64) 104/64 (77) 86/55 (65) Pulse Ox 92 O2 Delivery Room Air Room Air Nasal Cannula O2 Flow Rate 2.0 12/19/18 12/19/18 12/19/18 12/20/18 20:15 21:19 22:45 02:55 Temp 98.8 97.6 98.8 97.6 Pulse 114 116 115 110 Resp 20 18 B/P (MAP) 99/54 (69) 106/69 (81) 109/68 (82) 102/67 (79) Pulse Ox 94 94 O2 Delivery Room Air Room Air 12/20/18 07:52 O2 Delivery Room Air Intake and Output 12/19/18 12/19/18 12/20/18 14:59 22:59 06:59 Intake Total 0 ml 600 ml Output Total 450 ml 1000 ml Balance 0 ml -450 ml -400 ml LUKASZ RICHARDS MD Dec 20, 2018 08:07
[2018-12-20] MEDS: CARVEDILOL 3.125 MG TABLET. PO SCH (08:50)
[2018-12-20] MEDS: LISINOPRIL 10 MG TABLET PO SCH (09:00)
[2018-12-20 10:40] VITALS: BP 87/65
[2018-12-20] MEDS ORDERED: ATOR20TA58 PO (10:42)
[2018-12-20] MEDS ORDERED: SERT25TA4 PO (10:42)
[2018-12-20] MEDS ORDERED: LISI10TA2 PO (10:42)
[2018-12-20] MEDS ORDERED: ASPI-612 PO (10:42)
[2018-12-20] MEDS ORDERED: LORA0.5T96 PO (10:42)
[2018-12-20] MEDS ORDERED: CARV3.1210 PO (10:42)
--- NOTE | 2018-12-20 10:50 | PDOC3 ---
Discharge Summary Visit Information Date of Admission: Dec 16, 2018 Date of Discharge: Dec 20, 2018 Admitting Diagnosis: Acute CVA Final Diagnosis Problems Medical Problems: (1) Homonymous bilateral field defects of left side Status: Acute (2) Ischemic stroke Status: Acute Brief Hospital Course Allergies Allergies Coded Allergies Type Severity Reaction Last Updated Verified pineapple Allergy Intermediate 11/30/18 Yes Vital Signs Vital Signs Date Time Temp Pulse Resp B/P (MAP) Pulse Ox O2 Delivery O2 Flow Rate FiO2 12/20/18 10:40 98.0 118 16 87/65 (72) 96 Room Air 98.0 12/19/18 20:00 2.0 Brief Hospital Course Mr Vernon is a 23-year-old recently admitted to [facility], 11/29/2018. He had been experiencing dizziness. He fell down and did not strike his head. He felt some weakness on the left side of his body. This resolved by the time paramedics arrived. He underwent investigation with an echocardiogram that revealed a cardiomyopathy with an ejection fraction depressed at 25%. He underwent a cardiac catheterization, which did not reveal any coronary artery disease. He did not have evidence of a pulmonary embolus on a CT angio of the chest. A CT scan of the head did not reveal hemorrhage or stroke. He was dismissed on cardiac meds, aspirin and a statin. Unfortunately, he did not fill any of these medicines due to lack of funds. He presented to the Emergency Room on 12/16/2018. He had been experiencing symptoms for about 2 days with loss of vision to the left side. This was not associated with pain, numbness, weakness or a change in balance or coordination. He underwent an MRI of his brain, which revealed a stroke in the right temporal occipital regions. He was admitted for stroke, seen by neurology and cardiology. S/P CTA head revealing an occlusion of the right middle cerebral artery M1 segment just distal of its takeoff from the carotid artery terminus seen as poss ibly chronic by radiology. S/p RITESH on 12/19/18 which initially held some concern for apical ventricular thrombus, however, a contrast TTE on 12/20/2018 showed no thrombus. Cannot anticoag for NSTEMI due to recent CVA. ASA high dose ok per d/w neuro as well as high intensity statin Left eye visual field deficits since 12/16/18. HLD. Over weight NSTEMI - demand ischemia/vasospasm perform cocaine use. Recent cardiac catheterization did not show any significant coronary artery disease. acute systolic CHF cardiomyopathy EF 25% with clean [facility] November 2018. Cocaine and ETOH induced most likely Sober from cocaine since past admit Accelerated hypertension POA anxiety disorder, insomnia Acute CVA with left homonymous hemianopsia: right temporal/occipital. possible embolic in origin. Carotid arterial duplex scan did not show any significant carotid artery stenosis. Head CTA showed right MCA occlusion. Neurology team following. Plan for RITESH today to rule out intracardiac source of embolus. Mod to severe MR Binge ETOH Tobaccoism Compliance difficulties - failed start of medication from discharge due to financial constraints. Plan: ASA 325 mg daily. Lipitor HS. Further cardiac evaluation. Patient education for illicit drug abstinence. 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 Greater than 30 minutes spent on discharge Discharge Information Condition at Discharge: Improved Follow Up: Weeks (2) Disposition/Orders: D/C to Home Scheduled Aspirin (Aspirin Ec) 81 Mg Tablet.dr, 324 MG PO DAILYWBKFT for heart health for 30 Days, #120 Ref 11 can sub with 325mg ASA, disp #30 Prescribed by: LUKASZ RICHARDS MD on 12/20/18 1042 Atorvastatin Calcium (Atorvastatin Calcium) 20 Mg Tablet, 40 MG PO QHS for cholesterol for 30 Days, #60 Ref 11 Can sub with 40mg atorvastatin #30 Prescribed by: LUKASZ RICHARDS MD on 12/20/18 1042 Carvedilol (Carvedilol ) 3.125 Mg Tablet, 3.125 MG PO BIDWMEALS for heart health for 30 Days, #60 Ref 11 Prescribed by: LUKASZ RICHARDS MD on 12/20/18 1042 Lisinopril (Lisinopril) 10 Mg Tablet, 10 MG PO DAILY for CAD for 30 Days, #30 Ref 11 Prescribed by: LUKASZ RICHARDS MD on 12/20/18 1042 Sertraline Hcl (Sertraline Hcl) 25 Mg Tablet, 25 MG PO QHS for Depression for 30 Days, #30 Ref 11 Prescribed by: LUKASZ RICHARDS MD on 12/20/18 1042 Scheduled PRN Lorazepam (Ativan) 0.5 Mg Tablet, 0.5 MG PO PRN Q8HRS PRN for ANXIETY / AGITATION for 6 Days, #18 Ref 0 Prescribed by: LUKASZ RICHARDS MD on 12/20/18 1042 LUKASZ RICHARDS MD Dec 20, 2018 10:50
[2018-12-20] MEDS ORDERED: PERFLUTREN PROTEIN-A MICROSPHR 0.22 MG/ML 3 ML VIAL. IV ONE (11:21)
[2018-12-20] MEDS ORDERED: PERFLUTREN PROTEIN-A MICROSPHR 0.22 MG/ML 3 ML VIAL. IV PRN (12:00)
--- NOTE | 2018-12-20 12:16 | CARD ---
MR#: [id number] Date of Study: 12/19/2018 Ordering Physician: DIANA COLEMAN, Referring Physician: TORI LIZAMA Tech: Eloisa Soriano NATALI APPROVED REPORT EXAM: Two-dimensional and M-mode echocardiogram with Doppler and color Doppler. INDICATION ISCHEMIC STROKE Reason For Test : Rule out Intracardiac Thrombus. PROCEDURE After obtaining informed consent, patient underwent transesophageal echo in the PACU. Type of Sedation : General Anesthesia Sedation was administered by Anesthesia. Sedation was achieved with Propofol 220mg intravenously. Throughout the procedure, the blood pressure, pulse oximetry, cardiac rhythm, and rate were monitored . LEFT VENTRICLE The Left Ventricle is moderately dilated. There is mild concentric left ventricular hypertrophy. The left ventricular systolic function is severely impaired. The Ejection Fraction is 10-15%. There is gl obal hypokinesis of the left ventricle. There appears to be small non mobile thrombus in left ventric ular apex. Recommend echo with contrast for further evaluation. RIGHT VENTRICLE The right ventricle is normal size. There is normal right ventricular wall thickness. Systolic functi on is mildly reduced. ATRIA The left atrium is mildly dilated. The right atrium is mildly dilated. The interatrial septum is inta ct with no evidence for an atrial septal defect or patent foramen ovale as noted on 2-D or Doppler im aging. There is no thrombus noted in the left atrial appendage. AORTIC VALVE The aortic valve is trileaflet. The aortic valve is normal in structure and function. Doppler and Col or Flow revealed no significant aortic regurgitation. There is no significant aortic valvular stenosi s. There is no aortic valvular vegetation. MITRAL VALVE The mitral valve is normal in structure and function. There is no evidence of mitral valve prolapse. There is no mitral valve stenosis. Doppler and Color-flow revealed moderate mitral regurgitation. TRICUSPID VALVE The tricuspid valve is normal in structure and function. Doppler and Color Flow revealed trace tricus pid regurgitation. There is no tricuspid valve prolapse or vegetation. There is no tricuspid valve st enosis. PULMONIC VALVE The pulmonary valve is normal in structure and function. Doppler and Color Flow revealed no pulmonic valvular regurgitation. There is no pulmonic valvular stenosis. GREAT VESSELS The aortic root is normal in size. The ascending aorta is normal in size. PERICARDIAL EFFUSION There is no evidence of significant pericardial effusion. Critical Notification Critical Value: No <Conclusion> The left ventricular systolic function is severely impaired. The Ejection Fraction is 10-15%. Moderate mitral regurgitation. Trace tricuspid regurgitation. There is no evidence of significant pericardial effusion. There appears to be small non mobile thrombus in left ventricular apex. Recommend echo with contrast for further evaluation. Signed by : Diana Coleman, Electronically Approved : 12/20/2018 12:15:45
--- NOTE | 2018-12-20 12:18 | CARD ---
MR#: [id number] Date of Study: 12/20/2018 Ordering Physician: DIANA MUNGUIA, Referring Physician: TORI LIZAMA Tech: Dora Hernandez [facility] APPROVED REPORT EXAM: LIMITED Two-dimensional echocardiogram with contrast. Other Information Quality : Excellent INDICATION R/O Apical Thrombus Echo Enhancing Agent Agent/Amount Used: Optison 2mL LEFT VENTRICLE No left ventricle thrombus noted on this study. PERICARDIAL EFFUSION There is no evidence of significant pericardial effusion. Critical Notification Critical Value: No <Conclusion> Limited echo with contrast did not show any left ventriclular apical thrombus that was suspected on T EE. Signed by : Diana Munguia, Electronically Approved : 12/20/2018 12:18:05
--- NOTE | 2018-12-20 13:00 | PDOC ---
PROGRESS NOTES Assessment Assessment Left eye visual field deficits since 12/16/18. Large right posterior temporal and occipital lobe and small medial parietal lobe infarcts. Right MCA M1 segmental occlusion, chronic likely. CHF. Cocaine positive in 11/27. Marijuana positive continued. Opiate positive. HLD. Over weight. RECOMMENDATIONS/PLAN: ASA 325 mg daily. Lipitor HS. Cardiac treatment. Patient education for illicit drug abstinence. Subjective: Left eye visual field cur not able to see objects well in his left side since 12/16/18. PAST MEDICAL HISTORY Has not seen PCP for several years. PAST SURGICAL HISTORY No major surgery recently. FAMILY HISTORY Heart Disease (mother) SOCIAL HISTORY Smoke: <1 pack per day ALCOHOL: From time to time. Drugs: Marijuana, Cocaine (stated stopped it recently). Lives: with Family ALLERGY: NKDA MEDICATIONS: Refer to MAR REVIEW OF SYSTEMS: Constitutional: Obesity. Head: No traumatic brain or head injury. Skin: No edema, or rash. Ear: No infection. Eyes: No vision loss or color blindness. Nose: No bleeding or purulent discharges. Hearing: No hearing decrease. Neck: No injury. Cardiac: No ID, arrhythmia. Pulmonary: Smoking. GI: No GI ulcer, GI bleeding. Urinary/genital: No dysuria, incontinence, urinary retention. Endocrinologic: Obesity. Skeletomuscular: No muscular atrophy. Neurological: see HP. Psychiatric: Substance and drug use/abuse. Otherwise, not [id number] review of systems. PHYSICAL EXAMINATION: General appearance is in no acute distress. HEENT: Normocephalic and nontraumatic. Eyes, nose, ears, and throat are unremarkable. Neck is supple. No lymphadenopathy. No bruits are heard over the carotid artery. No crepitus. Cardiovascular: S1, S2, seemed irregular rate and rhythm. Pulmonary: Clear to auscultation bilaterally. Abdomen: Bowel sounds are positive. Abdomen is soft, nontender, and nondistended. Extremities: No rash, lesions, or edema. No restriction of range of motion NEUROLOGICAL EXAMINATION: Alert Oriented to time, place and person. PERRL. Left eye temporal visual field defect. EOMI. CN: no focal findings. Muscle tone: within normal. Muscle strength: 5- left UE. DTR: 2 Plantar reflex: Flexor response bilaterally Gait: Not examined in bed but stated walking normally. Sensory exam: no abnormal findings. No cerebellar signs elicited. F-T-N test accurate. No pronator drift after 10 seconds. No leg drop after 10 seconds lifting. Objective Objective Vital Signs Date Time Temp Pulse Resp B/P (MAP) Pulse Ox O2 Delivery O2 Flow Rate FiO2 12/20/18 10:40 98.0 118 16 87/65 (72) 96 Room Air 98.0 12/19/18 20:00 2.0 Intake and Output 12/20/18 06:59 Intake Total 600 ml Output Total 1450 ml Balance -850 ml Intake Oral 400 ml Other 200 ml Output Urine Total 1450 ml Vitals Signs Vitals VS - Last 72 Hours, by Label Date Time Temp Pulse Resp B/P (MAP) Pulse Ox O2 Delivery O2 Flow Rate FiO2 12/20/18 10:40 98.0 118 16 87/65 (72) 96 Room Air 98.0 12/20/18 08:50 112 99/70 12/20/18 07:52 Room Air 12/20/18 07:00 97.7 109 14 102/62 (75) 94 Room Air 97.7 12/20/18 02:55 97.6 110 18 102/67 (79) 94 Room Air 97.6 12/19/18 22:45 98.8 115 20 109/68 (82) 94 Room Air 98.8 12/19/18 21:19 116 106/69 (81) 12/19/18 20:15 114 99/54 (69) 12/19/18 20:00 Nasal Cannula 2.0 12/19/18 19:15 97.9 119 22 86/55 (65) 92 Room Air 97.9 12/19/18 17:24 106 104/64 (77) Room Air 12/19/18 16:00 109 81/56 (64) 12/19/18 15:09 109 96/63 (74) 12/19/18 15:08 96 Nasal Cannula 12/19/18 15:00 97.4 112 18 84/70 (75) 96 Room Air 97.4 12/19/18 14:54 107 18 98/64 (75) 96 Room Air 12/19/18 14:24 110 18 94/65 (75) 96 Room Air 12/19/18 14:09 112 18 84/70 (75) 96 Room Air 12/19/18 14:08 96 Room Air 2.0 12/19/18 13:54 112 18 73/58 (63) 96 Room Air 12/19/18 13:24 108 18 89/54 (66) 96 Room Air 12/19/18 12:39 110 18 102/61 (75) 96 Room Air 12/19/18 12:34 113 18 84/63 (70) 96 Room Air 12/19/18 12:08 98.3 108 22 88/56 93 Room Air 98.3 12/19/18 11:53 108 21 95/53 95 Room Air 12/19/18 11:38 97.6 110 22 97/62 94 Room Air 97.6 12/19/18 11:23 97.6 114 24 96/55 97 Nasal Cannula 2 97.6 12/19/18 11:20 Nasal Cannula 3 12/19/18 11:17 97.6 114 22 114/68 93 Nasal Cannula 3 97.6 12/19/18 11:09 97.6 108 24 123/60 95 Nasal Cannula 6 97.6 12/19/18 11:00 97.6 111 18 96/61 (73) 100 Room Air 97.6 12/19/18 10:52 98.4 111 15 93/69 96 Room Air 98.4 12/19/18 08:00 Room Air 12/19/18 08:00 114 108/73 12/19/18 07:59 114 108/73 12/19/18 07:00 98.3 113 24 108/73 (85) 98 Room Air 98.3 Medication Medications Current Medications Aspirin (Children'S Aspirin) 324 mg DAILYWBKFT PO Last administered on 12/20/18at 08:49; Start 12/20/18 at 08:00 Atorvastatin Calcium (Lipitor) 40 mg QHS PO Last administered on 12/19/18at 19:44; Start 12/19/18 at 21:00 Perflutren Protein Type A Microsphe (Optison) 0.66 mg PRN 1X PRN IV SEE COMMENTS Last administered on 12/20/18at 11:50; Start 12/20/18 at 12:00; Stop 12/21/18 at 11:59 Perflutren Protein Type A Microsphe (Optison) 0.66 mg STK-MED ONCE IV ; Start 12/20/18 at 11:21; Stop 12/20/18 at 11:22; Status DC Ringer's Solution 1,000 ml @ 75 mls/hr [id number] IV Last administered on 12/19/18at 14:08; Start 12/19/18 at 13:15 Throat Lozenges (Cepacol Sore Throat Lozenge) 1 abraham PRN Q2HRS PRN PO SORE THROAT Last administered on 12/20/18at 08:50; Start 12/19/18 at 19:30 Throat Lozenges (Chloraseptic) 1 spray PRN Q2HR PRN PO SORE THROAT, 2ND CHOICE; Start 12/19/18 at 19:30 Comment Review of Relevant I have reviewed the following items reshma (where applicable) has been applied. DENISE REYES MD Dec 20, 2018 13:00
[2018-12-20] MEDS: ONDANSETRON PF 4 MG/2 ML VIAL. IV PRN (13:22)
--- NOTE | 2018-12-20 15:15 | PDOC ---
PROGRESS NOTES Subjective Subjective No new complaints Objective Objective Vital Signs Date Time Temp Pulse Resp B/P (MAP) Pulse Ox O2 Delivery O2 Flow Rate FiO2 12/20/18 10:40 98.0 118 16 87/65 (72) 96 Room Air 98.0 12/19/18 20:00 2.0 Intake and Output 12/20/18 06:59 Intake Total 600 ml Output Total 1450 ml Balance -850 ml Intake Oral 400 ml Other 200 ml Output Urine Total 1450 ml Physical Exam Abdomen: Soft, No tenderness Heart: Regular rate (SR), Normal S1, Normal S2, Other (4/6 systolic apical murmur) Extremities: No cyanosis, No edema General: Alert, Oriented X3, No acute distress HEENT: Mucous membr. moist/pink Lungs: Clear to auscultation, Normal air movement Neuro: Normal speech Psych/Mental Status: Mental status NL, Mood NL Skin: No breakdown, No significant lesion Assessment Assessment 1. Acute CVA with left homonymous hemianopsia: right temporal/occipital. possible embolic in origin. Carotid arterial duplex scan did not show any significant carotid artery stenosis. Head CTA showed right MCA occlusion. Neurology team following. RITESH followed by echo with contrast rule out any intracardiac thrombus. 2. Non-STEMI most probably demand ischemia/vasospasm perform cocaine use. Recent cardiac catheterization did not show any significant coronary artery disease. 3. Severe NICM, chronic systolic heart failure: LVEF 15-20%, no CAD per [facility], possibly cocaine/ETOH induced. Clinically well compensated. 4. Mod to severe MR 5. Hx of cocaine, binge ETOH, cocaine, Tobaccoism: Importance of complete cessation reemphasized 6. HTN: Well-controlled 7. Noncompliance: failed start of medication from discharge due to financial constraints. Plan Plan of Care Problems Medical Problems: (1) Homonymous bilateral field defects of left side Status: Acute (2) Ischemic stroke Status: Acute Comment Review of Relevant I have reviewed the following items reshma (where applicable) has been applied. Medications Current Medications Aspirin (Children'S Aspirin) 324 mg DAILYWBKFT PO Last administered on 12/20/18at 08:49; Start 12/20/18 at 08:00 Atorvastatin Calcium (Lipitor) 40 mg QHS PO Last administered on 12/19/18at 19:44; Start 12/19/18 at 21:00 Perflutren Protein Type A Microsphe (Optison) 0.66 mg PRN 1X PRN IV SEE COMMENTS Last administered on 12/20/18at 11:50; Start 12/20/18 at 12:00; Stop 12/21/18 at 11:59 Perflutren Protein Type A Microsphe (Optison) 0.66 mg STK-MED ONCE IV ; Start 12/20/18 at 11:21; Stop 12/20/18 at 11:22; Status DC Throat Lozenges (Cepacol Sore Throat Lozenge) 1 abraham PRN Q2HRS PRN PO SORE THROAT Last administered on 12/20/18at 08:50; Start 12/19/18 at 19:30 Throat Lozenges (Chloraseptic) 1 spray PRN Q2HR PRN PO SORE THROAT, 2ND CHOICE; Start 12/19/18 at 19:30 Vitals/I & O Vital Sign - Last 24 Hours 12/19/18 12/19/18 12/19/18 12/19/18 16:00 17:24 19:15 20:00 Temp 97.9 97.9 Pulse 109 106 119 Resp 22 B/P (MAP) 81/56 (64) 104/64 (77) 86/55 (65) Pulse Ox 92 O2 Delivery Room Air Room Air Nasal Cannula O2 Flow Rate 2.0 12/19/18 12/19/18 12/19/18 12/20/18 20:15 21:19 22:45 02:55 Temp 98.8 97.6 98.8 97.6 Pulse 114 116 115 110 Resp 20 18 B/P (MAP) 99/54 (69) 106/69 (81) 109/68 (82) 102/67 (79) Pulse Ox 94 94 O2 Delivery Room Air Room Air 12/20/18 12/20/18 12/20/18 12/20/18 07:00 07:52 08:50 10:40 Temp 97.7 98.0 97.7 98.0 Pulse 109 112 118 Resp 14 16 B/P (MAP) 102/62 (75) 99/70 87/65 (72) Pulse Ox 94 96 O2 Delivery Room Air Room Air Room Air Intake and Output 12/19/18 12/19/18 12/20/18 14:59 22:59 06:59 Intake Total 0 ml 600 ml Output Total 450 ml 1000 ml Balance 0 ml -450 ml -400 ml DIANA MUNGUIA MD Dec 20, 2018 15:15
--- NOTE | 2018-12-20 17:04 | NUR ---
Discharge Note: [facility] Discharge instructions and discharge home medications reviewed with Patient and a copy given. All questions have been answered and understanding verbalized. The following instructions and handouts were given: discharge instructions, new prescriptions, education and follow up recommendations. Discontinued lines and drains: Peripheral IV discontinued intact. Patient discharged to Home or Self Care with Family Member via Wheelchair off unit by RN.
[2018-12-20 18:12] LABS: ANA INTERP Negative (.)
--- NOTE | 2018-12-20 19:52 | PDOC ---
PROGRESS NOTES Assessment Assessment Left eye visual field deficits since 12/16/18. Large right posterior temporal and occipital lobe and small medial parietal lobe infarcts. Right MCA M1 segmental occlusion, chronic likely. CHF. Cocaine positive in 11/27. Marijuana positive continued. Opiate positive. HLD. Over weight. Not complained with treatment before this admission. RECOMMENDATIONS/PLAN: ASA 325 mg daily. Lipitor HS. Cardiac treatment. Patient education for illicit drug abstinence. FU with PCP. FU with Cardiology. FU with Neurology as needed if has motor or sensory deficits. Subjective: Left eye visual field cur not able to see objects well in his left side since 12/16/18. PAST MEDICAL HISTORY Has not seen PCP for several years. PAST SURGICAL HISTORY No major surgery recently. FAMILY HISTORY Heart Disease (mother) SOCIAL HISTORY Smoke: <1 pack per day ALCOHOL: From time to time. Drugs: Marijuana, Cocaine (stated stopped it recently). Lives: with Family ALLERGY: NKDA MEDICATIONS: Refer to MAR REVIEW OF SYSTEMS: Constitutional: Obesity. Head: No traumatic brain or head injury. Skin: No edema, or rash. Ear: No infection. Eyes: No vision loss or color blindness. Nose: No bleeding or purulent discharges. Hearing: No hearing decrease. Neck: No injury. Cardiac: No WI, arrhythmia. Pulmonary: Smoking. GI: No GI ulcer, GI bleeding. Urinary/genital: No dysuria, incontinence, urinary retention. Endocrinologic: Obesity. Skeletomuscular: No muscular atrophy. Neurological: see HP. Psychiatric: Substance and drug use/abuse. Otherwise, not [id number] review of systems. PHYSICAL EXAMINATION: General appearance is in no acute distress. HEENT: Normocephalic and nontraumatic. Eyes, nose, ears, and throat are unremarkable. Neck is supple. No lymphadenopathy. No bruits are heard over the carotid artery. No crepitus. Cardiovascular: S1, S2, seemed irregular rate and rhythm. Pulmonary: Clear to auscultation bilaterally. Abdomen: Bowel sounds are positive. Abdomen is soft, nontender, and nondistended. Extremities: No rash, lesions, or edema. No restriction of range of motion NEUROLOGICAL EXAMINATION: Alert Oriented to time, place and person. PERRL. Left eye temporal visual field defect still persistent. EOMI. CN: no focal findings. Muscle tone: within normal. Muscle strength: 5- left UE. DTR: 2 Plantar reflex: Flexor response bilaterally Gait: Not examined in bed but stated walking normally. Sensory exam: no abnormal findings. No cerebellar signs elicited. F-T-N test accurate. No pronator drift after 10 seconds. No leg drop after 10 seconds lifting. Objective Objective Vital Signs Date Time Temp Pulse Resp B/P (MAP) Pulse Ox O2 Delivery O2 Flow Rate FiO2 12/20/18 10:40 98.0 118 16 87/65 (72) 96 Room Air 98.0 12/19/18 20:00 2.0 Intake and Output 12/20/18 07:00 Intake Total 600 ml Output Total 1450 ml Balance -850 ml Intake Oral 400 ml Other 200 ml Output Urine Total 1450 ml Vitals Signs Vitals VS - Last 72 Hours, by Label Date Time Temp Pulse Resp B/P (MAP) Pulse Ox O2 Delivery O2 Flow Rate FiO2 12/20/18 10:40 98.0 118 16 87/65 (72) 96 Room Air 98.0 12/20/18 08:50 112 99/70 12/20/18 07:52 Room Air 12/20/18 07:00 97.7 109 14 102/62 (75) 94 Room Air 97.7 12/20/18 02:55 97.6 110 18 102/67 (79) 94 Room Air 97.6 12/19/18 22:45 98.8 115 20 109/68 (82) 94 Room Air 98.8 12/19/18 21:19 116 106/69 (81) 12/19/18 20:15 114 99/54 (69) 12/19/18 20:00 Nasal Cannula 2.0 12/19/18 19:15 97.9 119 22 86/55 (65) 92 Room Air 97.9 12/19/18 17:24 106 104/64 (77) Room Air 12/19/18 16:00 109 81/56 (64) 12/19/18 15:09 109 96/63 (74) 12/19/18 15:08 96 Nasal Cannula 12/19/18 15:00 97.4 112 18 84/70 (75) 96 Room Air 97.4 12/19/18 14:54 107 18 98/64 (75) 96 Room Air 12/19/18 14:24 110 18 94/65 (75) 96 Room Air 12/19/18 14:09 112 18 84/70 (75) 96 Room Air 12/19/18 14:08 96 Room Air 2.0 12/19/18 13:54 112 18 73/58 (63) 96 Room Air 12/19/18 13:24 108 18 89/54 (66) 96 Room Air 12/19/18 12:39 110 18 102/61 (75) 96 Room Air 12/19/18 12:34 113 18 84/63 (70) 96 Room Air 12/19/18 12:08 98.3 108 22 88/56 93 Room Air 98.3 12/19/18 11:53 108 21 95/53 95 Room Air 12/19/18 11:38 97.6 110 22 97/62 94 Room Air 97.6 12/19/18 11:23 97.6 114 24 96/55 97 Nasal Cannula 2 97.6 12/19/18 11:20 Nasal Cannula 3 12/19/18 11:17 97.6 114 22 114/68 93 Nasal Cannula 3 97.6 12/19/18 11:09 97.6 108 24 123/60 95 Nasal Cannula 6 97.6 12/19/18 11:00 97.6 111 18 96/61 (73) 100 Room Air 97.6 12/19/18 10:52 98.4 111 15 93/69 96 Room Air 98.4 12/19/18 08:00 Room Air 12/19/18 08:00 114 108/73 12/19/18 07:59 114 108/73 12/19/18 07:00 98.3 113 24 108/73 (85) 98 Room Air 98.3 Medication Medications Current Medications Aspirin (Children'S Aspirin) 324 mg DAILYWBKFT PO Last administered on 12/20/18at 08:49; Start 12/20/18 at 08:00; Stop 12/20/18 at 17:06; Status DC Atorvastatin Calcium (Lipitor) 40 mg QHS PO Last administered on 12/19/18at 19:44; Start 12/19/18 at 21:00; Stop 12/20/18 at 17:06; Status DC Perflutren Protein Type A Microsphe (Optison) 0.66 mg PRN 1X PRN IV SEE COMMENTS Last administered on 12/20/18at 11:50; Start 12/20/18 at 12:00; Stop 12/20/18 at 17:06; Status DC Perflutren Protein Type A Microsphe (Optison) 0.66 mg STK-MED ONCE IV ; Start 12/20/18 at 11:21; Stop 12/20/18 at 11:22; Status DC Comment Review of Relevant I have reviewed the following items reshma (where applicable) has been applied. DENISE REYES MD Dec 20, 2018 19:52
== END 2018-12-20 17:06 | disposition home or self-care (01) | DRG 64 ==
LOC: ER 13:03 → 2 SOUTH 15:30
PROVIDERS: ADMIT Internal Medicine; ATTEND Internal Medicine
PROC: B24BZZ4 Ultrasonography of Heart with Aorta, Transesophageal (ICD-10-PCS; principal; 2018-12-19 11:00)
PROC: B24BZZ4 Ultrasonography of Heart with Aorta, Transesophageal (ICD-10-PCS; 2018-12-20)
DX: I63.9 Cerebral infarction, unspecified (principal); I50.23 Acute on chronic systolic (congestive) heart failure; I21.A1 Myocardial infarction type 2; I42.9 Cardiomyopathy, unspecified; I66.01 Occlusion and stenosis of right middle cerebral artery; H53.461 Homonymous bilateral field defects, right side; H53.462 Homonymous bilateral field defects, left side; E78.5 Hyperlipidemia, unspecified; F10.20 Alcohol dependence, uncomplicated; F17.210 Nicotine dependence, cigarettes, uncomplicated; F41.9 Anxiety disorder, unspecified; G47.00 Insomnia, unspecified; F12.10 Cannabis abuse, uncomplicated; F14.10 Cocaine abuse, uncomplicated; I11.0 Hypertensive heart disease with heart failure; I34.0 Nonrheumatic mitral (valve) insufficiency; Z79.82 Long term (current) use of aspirin; Z82.1 Family history of blindness and visual loss; Z82.49 Family history of ischemic heart disease and other diseases of the circulatory system; Z86.73 Personal history of transient ischemic attack (TIA), and cerebral infarction without residual deficits; Z91.19 Patient's noncompliance with other medical treatment and regimen; Z91.018 Allergy to other foods; E66.3 Overweight; Z68.29 Body mass index [BMI] 29.0-29.9, adult
CPT/HCPCS: 93325; 99285; C8924; 36415; 70496; 70498; 70551; 71045; 80053; 80307; 84443; 84484; 85025; 85610; 85651; 85730; 86038; 86140; 86147; 86431; 93005; 93312; 93880; J2060; J2405; J2704; J7120; Q9956